=== PATIENT | male | born 1940 | race Caucasian/White ===

== ENCOUNTER 2017-06-11 15:03 | Inpatient (IN) | payer MEDICARE ==
[2017-06-11] MEDS ORDERED: NS 0.9% 1000 ML* 1,000 ML IV ONE (15:07)
[2017-06-11 15:24] LABS: Hematocrit 37 % (42-52); Hemoglobin 12.5 g/dl (14.0-18.0); Mean Corpuscular HGB Conc 34 g/dl (31-36); Mean Corpuscular Hemoglobin 32 pg (27-31); Mean Corpuscular Volume 93 fL (80-94); Mean Platelet Volume 8 um3 (7.4-10.4); Red Blood Count 3.92 10^6/ul (4.0-5.4); Red Cell Distribution Width 13 % (10.5-15); White Blood Count 15.5 10^3/ul (3.5-10.8)
[2017-06-11 15:47] LABS: ALT 13 U/L (7-52); AST 19 U/L (13-39); Albumin 4.1 g/dL (3.2-5.2); Alkaline Phosphatase 46 U/L (34-104); Anion Gap 8 mmol/L (2-11); BUN/Creatinine Ratio 12.4 (8-20); Blood Urea Nitrogen 11 mg/dL (6-24); CO2 Carbon Dioxide 27 mmol/L (22-32); Calcium 9.7 mg/dL (8.6-10.3); Chloride 92 mmol/L (101-111); Creatine Kinase 199 U/L (10-223); EGFR African American 106.9 (>60); EGFR Non-African American 83.1 (>60); Globulin 2.9 g/dL (2-4); Glucose 125 mg/dL (70-100); Potassium 3.8 mmol/L (3.5-5.0); Sodium 127 mmol/L (133-145)
[2017-06-11 15:56] LABS: Troponin I 0.12 ng/mL (<0.04)
[2017-06-11 15:57] LABS: Urine Bacteria Absent (Absent); Urine Bilirubin Negative (Negative); Urine Glucose Negative (Negative); Urine Nitrite Negative (Negative)
[2017-06-11 15:59] LABS: Acetaminophen < 15 mcg/mL; Alcohol < 10 mg/dL (<10)
[2017-06-11 16:01] LABS: TSH (Thyroid Stimulating Horm) 0.36 mcIU/mL (0.34-5.60)
[2017-06-11 16:22] LABS: Benzodiazepine Urine Screen None Detected (None Detect)
--- NOTE | 2017-06-11 16:45 | RAD ---
Indication: Confusion. Single frontal view of the chest performed at 1611 hours was reviewed. Comparison is made with previous exam dated October 08, 2015. No mediastinal shift is noted. Heart is of normal size and configuration. Lung buckley appear clear. Patient is status post tracer thoracotomy. IMPRESSION: NO ACTIVE CARDIOPULMONARY DISEASE IS NOTED.
[2017-06-11] MEDS ORDERED: Acetaminophen TAB* 325 MG PO PRN (16:53)
[2017-06-11] MEDS ORDERED: hydrALAZINE IV* 20 MG/ML VIAL IV SLOW PU PRN (16:53)
[2017-06-11] MEDS ORDERED: Ondansetron INJ* 2 MG/ML VIAL IV PRN (16:53)
[2017-06-11] MEDS ORDERED: Albuterol HFA INHALER* 8 gm MDI INH PRN (16:56)
[2017-06-11] MEDS ORDERED: Zosyn per Pharmacy* NOTE FOLLOW UP SCH (17:00)
[2017-06-11] MEDS ORDERED: NS 0.9% 1000 ML* 1,000 ML IV SCH (17:00)
[2017-06-11] MEDS ORDERED: Piperacillin/Tazobac (*) 3.375 GM ADDV.VIAL ONE (17:25)
--- NOTE | 2017-06-11 17:36 | ED ---
Brigitte Zhao Alfonso, scribed for King Ulloa MD on 06/11/17 at 1510 . Complex/Multi-Sys Presentation - HPI Summary HPI Summary: This patient is a 77 year old M BIBA to [facility] with a chief complaint of weakness since yesterday. Pt was found by EMS on the floor near his bed. The patient rates the pain 3/10 in severity. Symptoms aggravated by nothing. Symptoms alleviated by nothing. EMS reports vomiting, leg pain, calf swelling, and AMS. - History Of Current Complaint Chief Complaint: EDAltMentalStatus Time Seen by Provider: 06/11/17 15:04 Hx Obtained From: Patient, EMS Onset/Duration: Sudden Onset, Lasting Days, Still Present Timing: Constant Severity Currently: Moderate Severity Initially: Moderate Aggravating Factor(s): nothing Alleviating Factor(s): nothing Associated Signs And Symptoms: Positive: Other - vomiting, leg pain, calf swelling, weakness, and AMS. - Allergies/Home Medications Allergies/Adverse Reactions: Allergies Allergy/AdvReac Type Severity Reaction Status Date / Time Hydrocodone AdvReac See Comment Verified 06/11/17 15:10 SEASONAL ALLERGIES Allergy Runny Nose Uncoded 06/11/17 15:10 Home Medications: Home Medications Albuterol inh POWDER (NF) [Proair Respiclick] 2 puff INH Q4HR PRN 06/11/17 [ History Confirmed 06/11/17] Aspirin EC Low Dose* [Ecotrin EC Low Dose 81 MG*] 81 mg PO DAILY 06/11/17 [ History Confirmed 06/11/17] Cetirizine* [ZyrTEC 10 MG TAB*] 10 mg PO DAILY 06/11/17 [History Confirmed 06/11] Cholecalciferol [Vitamin D3 Super Strength] 4,000 unit PO DAILY 06/11/17 [ History Confirmed 06/11/17] Gabapentin CAP(*) [Neurontin 300 CAP(*)] 900 mg PO TID MDD 2700 mg 06/11/17 [ History Confirmed 06/11/17] Lovastatin (NF) [Mevacor (NF)] 40 mg PO BEDTIME 06/11/17 [History Confirmed 10/27] Metoprolol Succinate XL TAB* [Toprol XL TAB*] 25 mg PO DAILY 06/11/17 [History Confirmed 06/11/17] Multivitamins/Minerals TAB* [Theragran/minerals TAB*] 1 tab PO DAILY 06/11/17 [ History Confirmed 06/11/17] Polyethylene Glycol 3350* [Miralax*] 17 gm PO DAILY PRN 06/11/17 [History Confirmed 06/11/17] oxyCODONE/Acetamin 10/325(NF) [Percocet 10/325 (NF)] 1 - 2 tab PO Q6HR MDD 6 tabs 06/11/17 [History Confirmed 06/11/17] PMH/Surg Hx/FS Hx/Imm Hx Endocrine/Hematology History: Reports: Hx Anemia - TAKING IRON TABLETS Denies: Hx Diabetes, Hx Sickle Cell Disease Cardiovascular History: Reports: Hx Coronary Artery Disease, Hx Hypercholesterolemia, Hx Hypertension - TREATED WITH MEDICATION, Hx Valvular Heart Disease Denies: Hx Pacemaker/ICD Respiratory History: Reports: Hx Chronic Obstructive Pulmonary Disease (COPD), Hx Seasonal Allergies, Other Respiratory Problems/Disorders - USES INHALER DAILY GI History: Reports: Hx Gastroesophageal Reflux Disease, Other GI Disorders - CONSTIPATION USES MIRALAX History: Reports: Hx Benign Prostatic Hyperplasia, Other Problems/ Disorders - BPH Denies: Hx Dialysis Musculoskeletal History: Reports: Hx Arthritis - HIPS AND LEGS Sensory History: Reports: Hx Contacts or Glasses Denies: Hx Hearing Aid - IS SLIGHTLY [place] Opthamlomology History: Reports: Hx Contacts or Glasses Neurological History: Denies: Hx Dementia, Hx Seizures, Other Neuro Impairments/Disorders Psychiatric History: Denies: Hx Anxiety, Hx Attention Deficit Hyperactivity Disorder, Hx Eating Disorder, Hx Depression, Hx Panic Disorder, Hx Post Traumatic Stress Disorder, Hx Inpatient Treatment, Hx Community Mental Health Tx, Hx Schizophrenia, Hx Bipolar Disorder, Hx Suicide Attempt, Hx of Violent Episodes Against Others, Hx Substance Abuse, Other Psychiatric Issues/Disorders - Surgical History Surgery Procedure, Year, and Place: [place] 04[place] [facility] [place] RIGHT KNEE 2001, LT HIP REPLACEMENT 2012, RT KNEE REPLACEMENT 06/23, Hx Anesthesia Reactions: No - Immunization History Date of Tetanus Vaccine: Unk Date of Influenza Vaccine: Fall 2014 Infectious Disease History: No Infectious Disease History: Denies: Hx Clostridium Difficile, Hx Hepatitis, Hx Human Immunodeficiency Virus (HIV), Hx Shingles, Hx Tuberculosis, Traveled Outside the in Last 30 Days - Family History Known Family History: Negative: Seizure Disorder - Social History Alcohol Use: None Alcohol Amount: glass of wine with dinner Substance Use Type: Reports: None Smoking Status (MU): Former Smoker Type: Cigarettes Review of Systems Positive: Vomiting Positive: Other - leg pain, calf swelling. Neurological: Other - AMS Positive: Weakness All Other Systems Reviewed And Are Negative: Yes Physical Exam Triage Information Reviewed: Yes Vital Signs On Initial Exam: Initial Vitals Temp Pulse Resp BP Pulse Ox 98.5 F 80 15 190/49 96 06/11/17 15:04 06/11/17 15:04 06/11/17 15:04 06/11/17 15:04 06/11/17 15:04 Vital Signs Reviewed: Yes Appearance: Positive: Well-Appearing, No Pain Distress Skin: Positive: Warm, Skin Color Reflects Adequate Perfusion, Dry Head/Face: Positive: Normal Head/Face Inspection Eyes: Positive: Other: - Conjunctiva pale ENT: Positive: Other - Dry oral mucosa Neck: Positive: Supple, Nontender Respiratory/Lung Sounds: Positive: Clear to Auscultation, Breath Sounds Present Cardiovascular: Positive: RRR Abdomen Description: Positive: Nontender, Soft Bowel Sounds: Positive: Present Musculoskeletal: Positive: Other - Pitting edema bilaterally 1+. No asterixis. Neurological: Positive: Normal, Sensory/Motor Intact, Alert, Oriented to Person Place, Time, CN Intact II-III Psychiatric: Positive: Affect/Mood Appropriate - [place] Coma Scale Coma Scale Total: 14 Diagnostics - Vital Signs Vital Signs Temp Pulse Resp BP Pulse Ox 06/11/17 15:05 98.5 F 69 15 190/49 94 06/11/17 15:04 98.5 F 80 15 190/49 96 - Laboratory Lab Results: Lab Results 06/11/17 06/11/17 06/11/17 Range/Units 15:15 15:15 15:15 WBC (3.5-10.8) 10^3/ul RBC (4.0-5.4) 10^6/ul Hgb (14.0-18.0) g/dl Hct (42-52) % MCV (80-94) fL MCH (27-31) pg MCHC (31-36) g/dl RDW (10.5-15) % Plt Count (150-450) 10^3/ul MPV (7.4-10.4) um3 Neut % (Auto) (38-83) % Lymph % (Auto) (25-47) % [place] % (Auto) (1-9) % Eos % (Auto) (0-6) % Baso % (Auto) (0-2) % Absolute Neuts (auto) (1.5-7.7) 10^3/ul Absolute Lymphs (auto) (1.0-4.8) 10^3/ul Absolute Monos (auto) (0-0.8) 10^3/ul Absolute Eos (auto) (0-0.6) 10^3/ul Absolute Basos (auto) (0-0.2) 10^3/ul Absolute Nucleated RBC 10^3/ul Nucleated RBC % INR (Anticoag Therapy) 1.11 (0.89-1.11) D-Dimer, Quantitative 219 (Less Than 230) ng/mL Sodium 127 L (133-145) mmol/L Potassium 3.8 (3.5-5.0) mmol/L Chloride 92 L (101-111) mmol/L Carbon Dioxide 27 (22-32) mmol/L Anion Gap 8 (2-11) mmol/L BUN 11 (6-24) mg/dL Creatinine 0.89 (0.67-1.17) mg/dL Est GFR ( Amer) 106.9 (>60) Est GFR (Non-Af Amer) 83.1 (>60) BUN/Creatinine Ratio 12.4 (8-20) Glucose 125 H (70-100) mg/dL Lactic Acid (0.5-2.0) mmol/L Calcium 9.7 (8.6-10.3) mg/dL Total Bilirubin 0.90 (0.2-1.0) mg/dL AST 19 (13-39) U/L ALT 13 (7-52) U/L Alkaline Phosphatase 46 (34-104) U/L Ammonia 26 (16-53) mol/L Total Creatine Kinase 199 (10-223) U/L Troponin I 0.12 H* (<0.04) ng/mL Total Protein 7.0 (6.4-8.9) g/dL Albumin 4.1 (3.2-5.2) g/dL Globulin 2.9 (2-4) g/dL Albumin/Globulin Ratio 1.4 (1-3) TSH 0.36 (0.34-5.60) mcIU/mL Urine Color Urine Appearance Urine pH (5-9) Ur Specific [place] (1.010-1.030) Urine Protein (Negative) Urine Ketones (Negative) Urine Blood (Negative) Urine Nitrate (Negative) Urine Bilirubin (Negative) Urine Urobilinogen (Negative) Ur Leukocyte Esterase (Negative) Urine WBC (Auto) (Absent) Urine RBC (Auto) (Absent) Urine Bacteria (Absent) Urine Glucose (Negative) Urine Opiates Screen (None Detect) Acetaminophen < 15 mcg/mL Ur Barbiturates Screen (None Detect) Ur Phencyclidine Scrn (None Detect) Ur Amphetamines Screen (None Detect) U Benzodiazepines Scrn (None Detect) Urine Cocaine Screen (None Detect) U Cannabinoids Screen (None Detect) Serum Alcohol < 10 (<10) mg/dL 06/11/17 06/11/17 06/11/17 Range/Units 15:15 15:15 15:35 WBC 15.5 H (3.5-10.8) 10^3/ul RBC 3.92 L (4.0-5.4) 10^6/ul Hgb 12.5 L (14.0-18.0) g/dl Hct 37 L (42-52) % MCV 93 (80-94) fL MCH 32 H (27-31) pg MCHC 34 (31-36) g/dl RDW 13 (10.5-15) % Plt Count 185 (150-450) 10^3/ul MPV 8 (7.4-10.4) um3 Neut % (Auto) 91.4 H (38-83) % Lymph % (Auto) 3.6 L (25-47) % [place] % (Auto) 4.6 (1-9) % Eos % (Auto) 0 (0-6) % Baso % (Auto) 0.4 (0-2) % Absolute Neuts (auto) 14.2 H (1.5-7.7) 10^3/ul Absolute Lymphs (auto) 0.6 L (1.0-4.8) 10^3/ul Absolute Monos (auto) 0.7 (0-0.8) 10^3/ul Absolute Eos (auto) 0 (0-0.6) 10^3/ul Absolute Basos (auto) 0.1 (0-0.2) 10^3/ul Absolute Nucleated RBC 0 10^3/ul Nucleated RBC % 0 INR (Anticoag Therapy) (0.89-1.11) D-Dimer, Quantitative (Less Than 230) ng/mL Sodium (133-145) mmol/L Potassium (3.5-5.0) mmol/L Chloride (101-111) mmol/L Carbon Dioxide (22-32) mmol/L Anion Gap (2-11) mmol/L BUN (6-24) mg/dL Creatinine (0.67-1.17) mg/dL Est GFR ( Amer) (>60) Est GFR (Non-Af Amer) (>60) BUN/Creatinine Ratio (8-20) Glucose (70-100) mg/dL Lactic Acid 0.8 (0.5-2.0) mmol/L Calcium (8.6-10.3) mg/dL Total Bilirubin (0.2-1.0) mg/dL AST (13-39) U/L ALT (7-52) U/L Alkaline Phosphatase (34-104) U/L Ammonia (16-53) mol/L Total Creatine Kinase (10-223) U/L Troponin I (<0.04) ng/mL Total Protein (6.4-8.9) g/dL Albumin (3.2-5.2) g/dL Globulin (2-4) g/dL Albumin/Globulin Ratio (1-3) TSH (0.34-5.60) mcIU/mL Urine Color Urine Appearance Urine pH (5-9) Ur Specific [place] (1.010-1.030) Urine Protein (Negative) Urine Ketones (Negative) Urine Blood (Negative) Urine Nitrate (Negative) Urine Bilirubin (Negative) Urine Urobilinogen (Negative) Ur Leukocyte Esterase (Negative) Urine WBC (Auto) (Absent) Urine RBC (Auto) (Absent) Urine Bacteria (Absent) Urine Glucose (Negative) Urine Opiates Screen Presumptive positive H (None Detect) Acetaminophen mcg/mL Ur Barbiturates Screen None detected (None Detect) Ur Phencyclidine Scrn None detected (None Detect) Ur Amphetamines Screen None detected (None Detect) U Benzodiazepines Scrn None detected (None Detect) Urine Cocaine Screen None detected (None Detect) U Cannabinoids Screen None detected (None Detect) Serum Alcohol (<10) mg/dL 09/01/17 Range/Units 15:35 WBC (3.5-10.8) 10^3/ul RBC (4.0-5.4) 10^6/ul Hgb (14.0-18.0) g/dl Hct (42-52) % MCV (80-94) fL MCH (27-31) pg MCHC (31-36) g/dl RDW (10.5-15) % Plt Count (150-450) 10^3/ul MPV (7.4-10.4) um3 Neut % (Auto) (38-83) % Lymph % (Auto) (25-47) % [place] % (Auto) (1-9) % Eos % (Auto) (0-6) % Baso % (Auto) (0-2) % Absolute Neuts (auto) (1.5-7.7) 10^3/ul Absolute Lymphs (auto) (1.0-4.8) 10^3/ul Absolute Monos (auto) (0-0.8) 10^3/ul Absolute Eos (auto) (0-0.6) 10^3/ul Absolute Basos (auto) (0-0.2) 10^3/ul Absolute Nucleated RBC 10^3/ul Nucleated RBC % INR (Anticoag Therapy) (0.89-1.11) D-Dimer, Quantitative (Less Than 230) ng/mL Sodium (133-145) mmol/L Potassium (3.5-5.0) mmol/L Chloride (101-111) mmol/L Carbon Dioxide (22-32) mmol/L Anion Gap (2-11) mmol/L BUN (6-24) mg/dL Creatinine (0.67-1.17) mg/dL Est GFR ( Amer) (>60) Est GFR (Non-Af Amer) (>60) BUN/Creatinine Ratio (8-20) Glucose (70-100) mg/dL Lactic Acid (0.5-2.0) mmol/L Calcium (8.6-10.3) mg/dL Total Bilirubin (0.2-1.0) mg/dL AST (13-39) U/L ALT (7-52) U/L Alkaline Phosphatase (34-104) U/L Ammonia (16-53) mol/L Total Creatine Kinase (10-223) U/L Troponin I (<0.04) ng/mL Total Protein (6.4-8.9) g/dL Albumin (3.2-5.2) g/dL Globulin (2-4) g/dL Albumin/Globulin Ratio (1-3) TSH (0.34-5.60) mcIU/mL Urine Color Yellow Urine Appearance Clear Urine pH 7.0 (5-9) Ur Specific [place] 1.015 (1.010-1.030) Urine Protein 1+(30 mg/dl) H (Negative) Urine Ketones 1+ H (Negative) Urine Blood Negative (Negative) Urine Nitrate Negative (Negative) Urine Bilirubin Negative (Negative) Urine Urobilinogen Negative (Negative) Ur Leukocyte Esterase Negative (Negative) Urine WBC (Auto) Absent (Absent) Urine RBC (Auto) 1+(3-5/hpf) H (Absent) Urine Bacteria Absent (Absent) Urine Glucose Negative (Negative) Urine Opiates Screen (None Detect) Acetaminophen mcg/mL Ur Barbiturates Screen (None Detect) Ur Phencyclidine Scrn (None Detect) Ur Amphetamines Screen (None Detect) U Benzodiazepines Scrn (None Detect) Urine Cocaine Screen (None Detect) U Cannabinoids Screen (None Detect) Serum Alcohol (<10) mg/dL Result Diagrams: 06/11/17 15:15 06/11/17 15:15 Lab Statement: Any lab studies that have been ordered have been reviewed, and results considered in the medical decision making process. - Radiology CXR Radiology Interpretation Completed By: Radiologist - NO ACTIVE CARDIOPULMONARY DISEASE IS NOTED. ED physician has reviewed this radiology report and agrees. - EKG 1621 Cardiac Rate: NL - BPM 78 EKG Rhythm: Sinus Rhythm EKG Interpretation: NAC Complex Multi-Symp Course/Dx Course Of Treatment: Mr. Felix was a bit confused here and C/O weakness. His W/ U was only remarkable for an indeterminant troponin and he is being admitted by the hospitalist. - Diagnoses Provider Diagnoses: Weakness, Confusion - Physician Notifications Discussed Care Of Patient With: Ivana Adorno Time Discussed With Above Provider: 16:08 Instructed by Provider To: Other - Consulted Dr. Adorno (hospitalist) who agrees to admit. Discharge - Discharge Plan Condition: Stable Disposition: ADMITTED TO [facility] Referrals: Pedro Grimaldo MD [Primary Care Provider] - The documentation as recorded by the Brigitte mercer Alfonso accurately reflects the service I personally performed and the decisions made by me, King Ulloa MD.
--- NOTE | 2017-06-11 17:38 | RAD ---
Indication: Confusion. CT of the brain was performed without IV contrast. Ventricular structures are midline. No midline shift is noted. The extra-axial spaces are unremarkable. There is no evidence of intracranial mass or hemorrhage. No other high or low density lesions are identified. Mastoid air cells and paranasal sinuses are otherwise unremarkable. Mucosal thickening is noted in the ethmoid air cells consistent with chronic sinusitis. IMPRESSION: No intracranial mass or hemorrhage is noted.
[2017-06-11] MEDS: Azithromycin IV(*) 500 MG in NS 0.9% 250 ML* 250 ML IVPB SCH (20:13)
[2017-06-11] MEDS: Heparin VIAL(*) 5000 UNITS/ML VIAL (FIVE THOUSAND) SUBCUT SCH (21:50)
[2017-06-11] MEDS: Atorvastatin* 10 MG TAB PO SCH (21:50)
[2017-06-11] MEDS: Gabapentin CAP(*) 300 MG PO SCH (21:50)
[2017-06-12] MEDS ORDERED: Analgesic BALM* 114 GM TOPICAL SCH (01:30)
--- NOTE | 2017-06-12 02:00 | HP ---
CC: Dr. Grimaldo * HISTORY AND PHYSICAL: DATE OF ADMISSION: 06/11/17 PRIMARY CARE PROVIDER: Dr. Grimaldo. ATTENDING PHYSICIAN WHILE IN THE HOSPITAL: Dr. Ivana Garcia * (report dictated by William Alatorre NP) CHIEF COMPLAINT: 1. Vomiting. 2. Altered mental status. HISTORY OF PRESENTING ILLNESS: Mr. Felix is a 77-year-old male patient. He has a history of coronary artery disease, hypertension, hyperlipidemia, BPH, CAD , EtOH abuse in the past, he says he has not been drinking now in 2-3 years and history of seasonal allergies. He came into the ER today because he says last night yesterday he had an episode of vomiting. He thinks he vomited 3 times, but he had no associated abdominal discomfort. He says he does not really remember. The only thing he remembers is he went to his bed, laid down and the next thing he knew, he thinks he was in his bed for over 12 hours. He was half on his bed, half with his legs on the floor. Actually his neighbors came to check on him, knocked on the door. They let themselves in because he was not answering, but they knew he was there and they called 911. He apparently was confused to the neighbors. They noticed that he had vomit all over him. The patient does state that he does have a productive cough, but now he says that he did not have this a few days ago. He denied having any fevers or chills. He is very vague with his history. He says he does not recall much. At one point, he says he has lost control of his urine and then when I rephrase the question, he says, no, he does not really remember if he was incontinent. There has been no reports of dysuria. He denies to me chest pain currently. He says he has not had a headache. He denies having any neck pain or stiffness and he says he has not been feeling short of breath. He says the cough is new. He denies any changes in medications. He says that he does have a significant amount of pain on his sides, but he says this is chronic in nature and that he always has pain on the sides and he takes narcotics for this. He denies having any orthopnea and he says he has not gained any weight. He came in to the ER, was evaluated. It was noted that he had an elevated white count. His troponin was mildly elevated, and because of these findings, we were asked to evaluate for admission. PAST MEDICAL HISTORY: Significant for: 1. Hyperlipidemia. 2. Hypertension. 3. BPH. 4. CAD. 5. EtOH abuse in the past. 6. Seasonal allergies. PAST SURGICAL HISTORY: 1. He has had a hernia repair. 2. Left total hip replacement. 3. Left knee replacement. 4. CABG. 5. Cardiac catheterization. HOME MEDICATIONS: According to the list that we are able to obtain includes: 1. Percocet 1-2 tablets every 6 hours as needed. 2. MiraLAX 17 g p.o. daily as needed. 3. Multivitamin 1 tablet daily. 4. Nasonex 2 spray both nares b.i.d. as needed. 5. Toprol-XL 25 mg daily. 6. Lovastatin 40 mg p.o. at bedtime. 7. Gabapentin 900 mg p.o. t.i.d. 8. B12 2000 mcg p.o. daily. 9. D3 4000 units p.o. daily. 10. Zyrtec 10 mg p.o. daily. 11. Aspirin 81 mg daily. 12. Vitamin C 1000 mg daily. 13. ProAir 2 puffs inhaled every 4 hours as needed. This was her handwritten list. We may want to consider calling her doctor's office in the morning for more accurate list. ALLERGIES TO MEDICATIONS: Include HYDROCODONE. FAMILY HISTORY: Mother had a liver cancer. Father had a history of [place]. SOCIAL HISTORY: He is a former pipe smoker. He is a former alcoholic, but he has not drank in 2-3 years. Surrogate decision maker is his brother Joel. Denies any recreational drug use. REVIEW OF SYSTEMS: There was no documented fever. Denies having any significant weight change. He denied any double vision. No ear discharge. No rhinorrhea. No sore throat. He does not have any cough now. There is no orthopnea. No dyspnea on exertion. No chest pain. There are episodes of nausea and vomiting, but no abdominal pain. No dysuria, no frequency. There was no seizure that we know of. No loss of consciousness. No pruritus and no skin ulcerations. Review of 14 systems completed, all others negative. PHYSICAL EXAMINATION GENERAL: At this time, Mr. Felix is a 77-year-old male patient. He is sitting in the ER stretcher. He does not appear to be in any acute distress. VITAL SIGNS: Blood pressure 183/48, pulse 74, respirations 18, O2 sat 96%, temperature 98.5. HEENT: Head is atraumatic. Eyes: EOMs intact. Sclerae anicteric. Throat: Oral mucosa appears to be dry. No oropharyngeal erythema. NECK: Supple. LUNGS: He did have rhonchi noted in the lower lobes, though when he cleared his throat, the rhonchi disappeared and it was clear. There are no wheezes or rales or rhonchi heard now. HEART: Sounds S1, S2. Regular rate and rhythm. No murmurs, rubs or gallops. ABDOMEN: Bowel sounds were present. He was soft, flat, and nontender. EXTREMITIES: Pulses were 2+. He did have +2 pitting edema bilaterally. He is having difficulty moving the lower extremities as it does elicit pain in his back of which he has a chronic medical problem from this bilaterally, though under passive range of motion, he has no pain in his knees or his hips. Sensation is intact bilaterally. His upper extremities are 5/5 strength. NEUROLOGIC: He is awake, he is alert, he is oriented x3. Currently, finger-to - nose intact bilaterally. Chief School Finance Officer were equal. No facial drooping. Speech was clear. No gross focal deficits. LABORATORY DATA: Labs today revealed WBC of 15.5, RBC of 3.92, hemoglobin 12.5 , hematocrit 37, platelet count of 185. INR 1.11. Sodium of 127, potassium of 3.8, chloride of 92, bicarb 27, BUN 11, creatinine 0.89, glucose 125, lactate 0.8, calcium 9.7, total bili 0.9, AST 19, ALT 13, alk phos 46, ammonia 26. His troponin was 0.12. CK was 199. Albumin 4.1. Urine showed 1+ protein, 1+ ketone. Urine opiates were positive in his drug screen, but otherwise his U- tox was negative. He had a chest x-ray obtained today, I reviewed it, I did not appreciate any effusions or infiltrates. Radiology read this as no active cardiopulmonary disease is noted. He did have an EKG obtained today as well, which revealed a normal sinus rhythm , does have a PAC. No ST elevations or T-wave inversions were noted. It was reviewed to a previous EKG, it appears to be similar. Old medical records were reviewed. ASSESSMENT AND PLAN: Mr. Felix is a 77-year-old male patient coming in to the ER today with complaints of altered mental status and vomiting. We are asked to evaluate for admission. He will be admitted under observation status for: 1. Altered mental status. Etiology is unclear. He may have an underlying infection. His white count is 15,000, which may be contributing to his mentation. He may have aspirated. Obviously, he may have had a seizure at some point too because he appears to have loss of period of time. I think we need to get a CT of the brain, EEG, neuro checks, place him on telemetry and follow him closely. 2. Indeterminate troponin. Again, he is not having any chest pain currently. His EKG is stable. I am going to trend these. Get an echo. In addition to this, I will place him on telemetry. He is on aspirin, statin, and beta- cheryl. We will continue. 3. Question of aspiration pneumonia. Again, he did vomit, so I wonder if the white count is coming from him possibly aspirating. I will put him on Zosyn and azithromycin. We will get sputum culture and Legionella antigen, Strep pneumo antigen as well. 4. Hyperlipidemia. Continue Mevacor. 5. Hypertension. Continue meds as prescribed. 6. Bilateral lower extremity edema. Again, the etiology is unclear. He thinks this has been a chronic problem, but I am going to check a D-dimer as well. If it is negative, then I will not pursue further workup. If it is positive, I would consider a CTA because that may explain the elevated troponin and I may also get an ultrasound of the lower extremities. 7. Hypertension. His blood pressure is in the 180s. He did not take his meds this morning. I have ordered p.r.n. hydralazine. We will continue meds as prescribed. 8. BPH. Continue his current medical regimen. 9. CAD. He is on aspirin, statin and beta-cheryl, we will continue. 10. History of EtOH abuse. Not an active issue currently, we will monitor. 11. Seasonal allergies. Continue Zyrtec. 12. DVT prophylaxis. He will be placed on heparin subcu. 13. Code status. He wishes to be a do not resuscitate. 14. Fluid, electrolyte, nutrition. He can have a heart healthy diet. TIME SPENT: Time spent on the admission was 60 minutes; greater than half the time was spent [id number] with the patient, obtaining my history and physical , the other half time was spent going over the plan of care with the patient and implementing the plan of care. I did discuss the plan of care with my attending, Dr. Garcia; she is in agreement. WILLIAM ALATORRE, UI DEVELOPER WITH ANGULAR JS [id number]/CPS #: [id number] LANCE
[2017-06-12] MEDS ORDERED: Analgesic BALM* 114 GM TOPICAL PRN (03:26)
[2017-06-12] MEDS: Ibuprofen TAB* 400 MG PO PRN (03:41)
[2017-06-12 05:22] LABS: Hematocrit 28 % (42-52); Hemoglobin 9.7 g/dl (14.0-18.0); Mean Corpuscular HGB Conc 35 g/dl (31-36); Mean Corpuscular Hemoglobin 33 pg (27-31); Mean Corpuscular Volume 93 fL (80-94); Mean Platelet Volume 9 um3 (7.4-10.4); Red Blood Count 2.98 10^6/ul (4.0-5.4); Red Cell Distribution Width 13 % (10.5-15); White Blood Count 9.8 10^3/ul (3.5-10.8)
[2017-06-12] MEDS: Heparin VIAL(*) 5000 UNITS/ML VIAL (FIVE THOUSAND) SUBCUT SCH ×3 (05:29→21:16)
[2017-06-12 05:41] LABS: BUN/Creatinine Ratio 14.3 (8-20); Calcium 8.2 mg/dL (8.6-10.3); EGFR African American 126.3 (>60); EGFR Non-African American 98.2 (>60); Potassium 3.5 mmol/L (3.5-5.0)
[2017-06-12] MEDS: Aspirin EC Low Dose* 81 MG TAB.EC PO SCH (09:10)
[2017-06-12] MEDS: Gabapentin CAP(*) 300 MG PO SCH ×3 (09:10→21:16)
[2017-06-12] MEDS: Metoprolol Succinate XL TAB* 25 MG PO SCH (09:11)
[2017-06-12] MEDS: Cyanocobalamin TAB* 500 MCG PO SCH (09:11)
[2017-06-12] MEDS: Cetirizine* 10 MG TAB PO SCH (09:11)
[2017-06-12] MEDS ORDERED: oxyCODONE/Acetamin 5/325 MG* TAB PO PRN ×2 (11:50→11:58)
[2017-06-12] MEDS ORDERED: oxyCODONE/Acetamin 10/325(NF) TAB PO SCH (12:00)
--- NOTE | 2017-06-12 17:38 | PN ---
Subjective Date of Service: 06/12/17 Interval History: Pt on observation status after being found slumped against bed and floor with altered mental status. He remembers vomiting several times into an urinal then holding urinal for several hours so that it would not fall. Pt complaint overnight of bilateral hand pain 2/2 OA ultimately improvided with topical balms similar to what he takes at home. Feels very fatigued (2/2 lack of sleep) and "confused" and does not he would be safely discharged today. Can't get into his house without help. Has somebody who brings him food. Drives seldomly. Per RN, Neighbors visited today (same who found him) and don't think he is safe in home environment as they also felt his medication were all over the place. Leukocytosis resolved. Denies coughing or choking but somewhat unreliable historian. Objective Active Medications: Acetaminophen (Tylenol Tab*) 650 mg PO Q4H PRN PRN Reason: FEVER/PAIN Last Admin: 06/11/17 23:52 Dose: 650 mg Albuterol (Ventolin Hfa Inhaler*) 2 puff INH Q4H PRN PRN Reason: SHORTNESS OF BREATH Aspirin (Aspirin Ec Low Dose*) 81 mg PO DAILY [facility] Last Admin: 06/12/17 09:10 Dose: 81 mg Atorvastatin Calcium (Lipitor*) 10 mg PO BEDTIME ISAIAS PRN Reason: Protocol Last Admin: 06/11/17 21:50 Dose: 10 mg Cetirizine HCl (Zyrtec*) 10 mg PO DAILY ISAIAS PRN Reason: Protocol Last Admin: 06/12/17 09:11 Dose: 10 mg Cyanocobalamin (Vitamin B12 Tab*) 2,000 mcg PO DAILY [facility] Last Admin: 06/12/17 09:11 Dose: 2,000 mcg Gabapentin (Neurontin Cap(*)) 900 mg PO TID [facility] Last Admin: 06/12/17 13:39 Dose: 900 mg Heparin Sodium (Porcine) (Heparin Vial(*)) 5,000 units SUBCUT Q8HR [facility] Last Admin: 06/12/17 13:40 Dose: 5,000 units Hydralazine HCl (Apresoline Iv*) 5 mg IV SLOW PU Q6H PRN PRN Reason: BLOOD PRESSURE Azithromycin 500 mg/ Sodium (Chloride) 250 mls @ 250 mls/hr IVPB Q24H [facility] Last Admin: 06/11/17 20:13 Dose: 250 mls/hr Ibuprofen (Motrin Tab*) 400 mg PO Q6H PRN PRN Reason: PAIN - ARTHRITIS Last Admin: 06/12/17 03:41 Dose: 400 mg Metoprolol Succinate (Toprol Xl Tab*) 25 mg PO DAILY [facility] Last Admin: 06/12/17 09:11 Dose: 25 mg Multi-Ingredient Liniment/Rub (Tod Murry*) 1 applic TOPICAL Q2H PRN PRN Reason: PAIN - ARTHRITIS Ondansetron HCl (Zofran Inj*) 4 mg IV Q6H PRN PRN Reason: NAUSEA Oxycodone/Acetaminophen (Percocet 5/325 Tab*) 1 tab PO Q6H PRN PRN Reason: PAIN Oxycodone/Acetaminophen (Percocet 5/325 Tab*) 2 tab PO Q6H PRN PRN Reason: MORE PAIN Pharmacy Consult (Zosyn Per Pharmacy*) 1 note FOLLOW UP .ZOSYN PER PHARMACY [facility] Polyethylene Glycol/Electrolytes (Miralax*) 17 gm PO DAILY PRN PRN Reason: CONSTIPATION Tamsulosin HCl (Flomax Cap*) 0.4 mg PO DAILY [facility] Vital Signs 06/11/17 06/11/17 06/11/17 17:35 18:10 20:46 Temperature 98.1 F 98.0 F Pulse Rate 63 71 79 Respiratory 18 18 Rate Blood Pressure 156/46 141/39 (mmHg) O2 Sat by Pulse 97 98 Oximetry 06/11/17 06/11/17 06/12/17 21:50 23:38 04:25 Temperature 98.0 F 97.7 F Pulse Rate 73 74 Respiratory 16 16 16 Rate Blood Pressure 144/40 140/46 (mmHg) O2 Sat by Pulse 96 Oximetry 06/12/17 06/12/17 06/12/17 07:42 08:31 09:10 Temperature 98.4 F Pulse Rate 61 Respiratory 16 17 Rate Blood Pressure 135/35 (mmHg) O2 Sat by Pulse 98 98 Oximetry 06/12/17 06/12/17 06/12/17 11:10 11:32 13:10 Temperature 98.1 F Pulse Rate 63 Respiratory 18 18 17 Rate Blood Pressure 158/59 (mmHg) O2 Sat by Pulse 98 Oximetry 06/12/17 13:39 Temperature Pulse Rate Respiratory 17 Rate Blood Pressure (mmHg) O2 Sat by Pulse Oximetry Oxygen Devices in Use Now: None Appearance: Tired, no acute distress. Hard of hearing vs slightly confused. Eyes: No Scleral Icterus, PERRLA Ears/Nose/Mouth/Throat: NL Teeth, Lips, Gums, Clear Oropharnyx, Mucous Membranes Moist Neck: NL Appearance and Movements; NL JVP Respiratory: Symmetrical Chest Expansion and Respiratory Effort, Clear to Auscultation Cardiovascular: NL Sounds; No Murmurs; No JVD, RRR Abdominal: NL Sounds; No Tenderness; No Distention Lymphatic: No Cervical Adenopathy Extremities: - - trace edema in legs bilaterally Skin: No Rash or Ulcers Neurological: Alert and Oriented x 3 Nutrition: Taking PO's Result Diagrams: 06/12/17 04:57 06/12/17 04:57 Additional Lab and Data: Lab Results 06/11/17 06/11/17 06/11/17 Range/Units 15:15 15:15 15:15 WBC (3.5-10.8) 10^3/ul RBC (4.0-5.4) 10^6/ul Hgb (14.0-18.0) g/dl Hct (42-52) % MCV (80-94) fL MCH (27-31) pg MCHC (31-36) g/dl RDW (10.5-15) % Plt Count (150-450) 10^3/ul MPV (7.4-10.4) um3 Neut % (Auto) (38-83) % Lymph % (Auto) (25-47) % [place] % (Auto) (1-9) % Eos % (Auto) (0-6) % Baso % (Auto) (0-2) % Absolute Neuts (auto) (1.5-7.7) 10^3/ul Absolute Lymphs (auto) (1.0-4.8) 10^3/ul Absolute Monos (auto) (0-0.8) 10^3/ul Absolute Eos (auto) (0-0.6) 10^3/ul Absolute Basos (auto) (0-0.2) 10^3/ul Absolute Nucleated RBC 10^3/ul Nucleated RBC % INR (Anticoag Therapy) 1.11 (0.89-1.11) D-Dimer, Quantitative 219 (Less Than 230) ng/mL Sodium 127 L (133-145) mmol/L Potassium 3.8 (3.5-5.0) mmol/L Chloride 92 L (101-111) mmol/L Carbon Dioxide 27 (22-32) mmol/L Anion Gap 8 (2-11) mmol/L BUN 11 (6-24) mg/dL Creatinine 0.89 (0.67-1.17) mg/dL Est GFR ( Amer) 106.9 (>60) Est GFR (Non-Af Amer) 83.1 (>60) BUN/Creatinine Ratio 12.4 (8-20) Glucose 125 H (70-100) mg/dL Lactic Acid (0.5-2.0) mmol/L Calcium 9.7 (8.6-10.3) mg/dL Total Bilirubin 0.90 (0.2-1.0) mg/dL AST 19 (13-39) U/L ALT 13 (7-52) U/L Alkaline Phosphatase 46 (34-104) U/L Ammonia 26 (16-53) mol/L Total Creatine Kinase 199 (10-223) U/L Troponin I 0.12 H* (<0.04) ng/mL Total Protein 7.0 (6.4-8.9) g/dL Albumin 4.1 (3.2-5.2) g/dL Globulin 2.9 (2-4) g/dL Albumin/Globulin Ratio 1.4 (1-3) TSH 0.36 (0.34-5.60) mcIU/mL Urine Color Urine Appearance Urine pH (5-9) Ur Specific [place] (1.010-1.030) Urine Protein (Negative) Urine Ketones (Negative) Urine Blood (Negative) Urine Nitrate (Negative) Urine Bilirubin (Negative) Urine Urobilinogen (Negative) Ur Leukocyte Esterase (Negative) Urine WBC (Auto) (Absent) Urine RBC (Auto) (Absent) Urine Bacteria (Absent) Urine Glucose (Negative) Urine Opiates Screen (None Detect) Acetaminophen < 15 mcg/mL Ur Barbiturates Screen (None Detect) Ur Phencyclidine Scrn (None Detect) Ur Amphetamines Screen (None Detect) U Benzodiazepines Scrn (None Detect) Urine Cocaine Screen (None Detect) U Cannabinoids Screen (None Detect) Serum Alcohol < 10 (<10) mg/dL 06/11/17 06/11/17 06/11/17 Range/Units 15:15 15:15 15:35 WBC 15.5 H (3.5-10.8) 10^3/ul RBC 3.92 L (4.0-5.4) 10^6/ul Hgb 12.5 L (14.0-18.0) g/dl Hct 37 L (42-52) % MCV 93 (80-94) fL MCH 32 H (27-31) pg MCHC 34 (31-36) g/dl RDW 13 (10.5-15) % Plt Count 185 (150-450) 10^3/ul MPV 8 (7.4-10.4) um3 Neut % (Auto) 91.4 H (38-83) % Lymph % (Auto) 3.6 L (25-47) % [place] % (Auto) 4.6 (1-9) % Eos % (Auto) 0 (0-6) % Baso % (Auto) 0.4 (0-2) % Absolute Neuts (auto) 14.2 H (1.5-7.7) 10^3/ul Absolute Lymphs (auto) 0.6 L (1.0-4.8) 10^3/ul Absolute Monos (auto) 0.7 (0-0.8) 10^3/ul Absolute Eos (auto) 0 (0-0.6) 10^3/ul Absolute Basos (auto) 0.1 (0-0.2) 10^3/ul Absolute Nucleated RBC 0 10^3/ul Nucleated RBC % 0 INR (Anticoag Therapy) (0.89-1.11) D-Dimer, Quantitative (Less Than 230) ng/mL Sodium (133-145) mmol/L Potassium (3.5-5.0) mmol/L Chloride (101-111) mmol/L Carbon Dioxide (22-32) mmol/L Anion Gap (2-11) mmol/L BUN (6-24) mg/dL Creatinine (0.67-1.17) mg/dL Est GFR ( Amer) (>60) Est GFR (Non-Af Amer) (>60) BUN/Creatinine Ratio (8-20) Glucose (70-100) mg/dL Lactic Acid 0.8 (0.5-2.0) mmol/L Calcium (8.6-10.3) mg/dL Total Bilirubin (0.2-1.0) mg/dL AST (13-39) U/L ALT (7-52) U/L Alkaline Phosphatase (34-104) U/L Ammonia (16-53) mol/L Total Creatine Kinase (10-223) U/L Troponin I (<0.04) ng/mL Total Protein (6.4-8.9) g/dL Albumin (3.2-5.2) g/dL Globulin (2-4) g/dL Albumin/Globulin Ratio (1-3) TSH (0.34-5.60) mcIU/mL Urine Color Urine Appearance Urine pH (5-9) Ur Specific [place] (1.010-1.030) Urine Protein (Negative) Urine Ketones (Negative) Urine Blood (Negative) Urine Nitrate (Negative) Urine Bilirubin (Negative) Urine Urobilinogen (Negative) Ur Leukocyte Esterase (Negative) Urine WBC (Auto) (Absent) Urine RBC (Auto) (Absent) Urine Bacteria (Absent) Urine Glucose (Negative) Urine Opiates Screen Presumptive positive H (None Detect) Acetaminophen mcg/mL Ur Barbiturates Screen None detected (None Detect) Ur Phencyclidine Scrn None detected (None Detect) Ur Amphetamines Screen None detected (None Detect) U Benzodiazepines Scrn None detected (None Detect) Urine Cocaine Screen None detected (None Detect) U Cannabinoids Screen None detected (None Detect) Serum Alcohol (<10) mg/dL 06/11/17 Range/Units 15:35 WBC (3.5-10.8) 10^3/ul RBC (4.0-5.4) 10^6/ul Hgb (14.0-18.0) g/dl Hct (42-52) % MCV (80-94) fL MCH (27-31) pg MCHC (31-36) g/dl RDW (10.5-15) % Plt Count (150-450) 10^3/ul MPV (7.4-10.4) um3 Neut % (Auto) (38-83) % Lymph % (Auto) (25-47) % [place] % (Auto) (1-9) % Eos % (Auto) (0-6) % Baso % (Auto) (0-2) % Absolute Neuts (auto) (1.5-7.7) 10^3/ul Absolute Lymphs (auto) (1.0-4.8) 10^3/ul Absolute Monos (auto) (0-0.8) 10^3/ul Absolute Eos (auto) (0-0.6) 10^3/ul Absolute Basos (auto) (0-0.2) 10^3/ul Absolute Nucleated RBC 10^3/ul Nucleated RBC % INR (Anticoag Therapy) (0.89-1.11) D-Dimer, Quantitative (Less Than 230) ng/mL Sodium (133-145) mmol/L Potassium (3.5-5.0) mmol/L Chloride (101-111) mmol/L Carbon Dioxide (22-32) mmol/L Anion Gap (2-11) mmol/L BUN (6-24) mg/dL Creatinine (0.67-1.17) mg/dL Est GFR ( Amer) (>60) Est GFR (Non-Af Amer) (>60) BUN/Creatinine Ratio (8-20) Glucose (70-100) mg/dL Lactic Acid (0.5-2.0) mmol/L Calcium (8.6-10.3) mg/dL Total Bilirubin (0.2-1.0) mg/dL AST (13-39) U/L ALT (7-52) U/L Alkaline Phosphatase (34-104) U/L Ammonia (16-53) mol/L Total Creatine Kinase (10-223) U/L Troponin I (<0.04) ng/mL Total Protein (6.4-8.9) g/dL Albumin (3.2-5.2) g/dL Globulin (2-4) g/dL Albumin/Globulin Ratio (1-3) TSH (0.34-5.60) mcIU/mL Urine Color Yellow Urine Appearance Clear Urine pH 7.0 (5-9) Ur Specific [place] 1.015 (1.010-1.030) Urine Protein 1+(30 mg/dl) H (Negative) Urine Ketones 1+ H (Negative) Urine Blood Negative (Negative) Urine Nitrate Negative (Negative) Urine Bilirubin Negative (Negative) Urine Urobilinogen Negative (Negative) Ur Leukocyte Esterase Negative (Negative) Urine WBC (Auto) Absent (Absent) Urine RBC (Auto) 1+(3-5/hpf) H (Absent) Urine Bacteria Absent (Absent) Urine Glucose Negative (Negative) Urine Opiates Screen (None Detect) Acetaminophen mcg/mL Ur Barbiturates Screen (None Detect) Ur Phencyclidine Scrn (None Detect) Ur Amphetamines Screen (None Detect) U Benzodiazepines Scrn (None Detect) Urine Cocaine Screen (None Detect) U Cannabinoids Screen (None Detect) Serum Alcohol (<10) mg/dL Microbiology and Other Data: Legionella Urine Antigen Final 06/11/17- 1824 ML Organism 1 Negative Legionella Antigen testing by enzyme immunoassay S.Pneumonia Urine Antigen Final 06/11/17- 1824 ML Organism 1 Negative S. pneumo Antigen Antigen testing by enzyme immunoassay Assess/Plan/Problems-Billing Assessment: 77 year old male PMH EtOH abuse but abstinant 3 years, CAD s/p CABG, HTN, HLD, BPH presenting with vomiting, AMS and possible fall. Leukocytosis resolved. Never fever. Poor historian, possibly unsafe home environment. - Patient Problems (1) Altered mental status Current Visit: Yes Status: Acute Code(s): R41.82 - ALTERED MENTAL STATUS, UNSPECIFIED SNOMED Code(s): 152552900 Comment: Pt is poor historian, AAOx3 currently. DDx dehydration in setting of ?viral gastroenteritis causing vomiting vs medication side effect (only opioids postive on tox screen) vs infection (UA clean, CXR unremarkable, no fever but initial leukocytosis) vs hyponatremia (relatively mild, initially 127 ) vs dementia vs hepatic encephalopathy (significant EtOH use, none for 3 years , ammonina wnl) vs seizure/post-ictal. Improving though not clear at baseline. Will get VNS to assess home environment upon discharge given concerns related by neighbors (2) Hyponatremia Current Visit: Yes Status: Acute Code(s): E87.1 - HYPO-OSMOLALITY AND HYPONATREMIA SNOMED Code(s): 86069359 Comment: Improved from 127 to 132, got 1L NS in ED. Recheck BMP in AM. TSH wnl 0.36. (3) Urinary frequency Current Visit: Yes Status: Acute Code(s): R35.0 - FREQUENCY OF MICTURITION SNOMED Code(s): 221279178 Comment: increasing frequency to q30min from q1hr. UA not concerning for infection. Known BPH. F/u UCx. Add flomax. (4) Elevated troponin Current Visit: Yes Status: Acute Code(s): R74.8 - ABNORMAL LEVELS OF OTHER SERUM ENZYMES SNOMED Code(s): 973067012 Comment: Denies chest pain but potential cause of ?syncope, EKG with <1mm ST depression v4,v5. TWI III. Troponins flat 0.12, 0.12, 0.13. (5) Weakness of lower extremity Current Visit: Yes Status: Acute Code(s): R29.898 - OT SYMPTOMS AND SIGNS INVOLVING THE MUSCULOSKELETAL SYSTEM SNOMED Code(s): 090566480 Comment: Complaint of chronic lower extremity weakness and swelling which may be contributing to his mobilty issues. Trace edema on exam. Follow-up ECHO ordered on admission (had EF 60-65% Sep 2015). Get BNP (was 150 Sep 2015). Physical Therapy Evaluation (both here and likely home going). INR jason to 1.24 from 1.11 but no evidence of decompensated liver disease (no ascites, no transaminitis/bili). Status and Disposition: Initially observation but will change to inpatient. Likely discharge tomorrow 06/13. Attending: Isidoro Canseco
[2017-06-12] MEDS: Azithromycin IV(*) 500 MG in NS 0.9% 250 ML* 250 ML IVPB SCH (18:29)
[2017-06-12] MEDS: Tamsulosin CAP* 0.4 MG PO SCH (18:30)
[2017-06-12] MEDS: Atorvastatin* 10 MG TAB PO SCH (21:16)
[2017-06-12] MEDS: Analgesic BALM* 114 GM TOPICAL PRN ×2 (21:17→23:16)
[2017-06-13] MEDS: Analgesic BALM* 114 GM TOPICAL PRN ×2 (02:38→14:40)
[2017-06-13] MEDS: Heparin VIAL(*) 5000 UNITS/ML VIAL (FIVE THOUSAND) SUBCUT SCH ×3 (05:15→21:02)
[2017-06-13 06:23] LABS: BUN/Creatinine Ratio 17.8 (8-20); Calcium 8.2 mg/dL (8.6-10.3); EGFR African American 134.3 (>60); EGFR Non-African American 104.5 (>60); Potassium 3.6 mmol/L (3.5-5.0)
[2017-06-13] MEDS: Tamsulosin CAP* 0.4 MG PO SCH (09:23)
[2017-06-13] MEDS: Gabapentin CAP(*) 300 MG PO SCH ×3 (09:23→21:03)
[2017-06-13] MEDS: Cetirizine* 10 MG TAB PO SCH (09:24)
[2017-06-13] MEDS: Aspirin EC Low Dose* 81 MG TAB.EC PO SCH (09:24)
[2017-06-13] MEDS: Metoprolol Succinate XL TAB* 25 MG PO SCH (09:24)
[2017-06-13] MEDS: Cyanocobalamin TAB* 500 MCG PO SCH (09:24)
--- NOTE | 2017-06-13 14:06 | ECHO ---
Patient: MOE EDWARDS [facility] Rec#: [id number] : 1940 Date: 06/13/2017 Age: 77y Height: 152.4 cm / 60.0 in Weight: 64.86 kg / 143.0 lbs Sex: M BSA: 1.62 Room#: [facility] Admit Date#: 06/13/2017 Type: Inpatient Referring: William Alatorre NP Reading: Jamie Erwin MD Ticker Maintainer: Kassandra Jeffers RDCS CC: Pedro Grimaldo MD Transthoracic Echocardiogram Indication: Altered mental status, CAD, elevated troponin level. BP: 145/50 HR: 56 Rhythm: Bradycardia Findings History: CAD with CABG, HTN, HLD, BPH, former ETOH abuse. Technical Comments: The study quality is fair. The study is technically limited due to poor parasternal windows. Completed at 1310. Left Ventricle: The left ventricular chamber size is normal. Mild concentric left ventricular hypertrophy is observed. Global left ventricular wall motion and contractility are within normal limits. There is normal left ventricular systolic function. The estimated ejection fraction is 55-60%. Normal left ventricular diastolic filling is observed. Left Atrium: The left atrium is moderately dilated. Right Ventricle: The right ventricle is slightly dilated. The right ventricular global systolic function is normal. Right Atrium: The right atrium is mildly dilated. Aortic Valve: The aortic valve is trileaflet. The aortic valve leaflets are mildly thickened. There is mild to moderate aortic regurgitation. There is no evidence of aortic stenosis. Mitral Valve: There is mitral annular calcification. The mitral valve leaflets are mildly thickened. There is mild mitral regurgitation. There is no evidence of mitral stenosis. Tricuspid Valve: The tricuspid valve leaflets are normal. There is mild tricuspid regurgitation. The right ventricular systolic pressure is estimated at 49 mmHg. There is evidence of moderate pulmonary hypertension. There is no tricuspid stenosis. Pulmonic Valve: The pulmonic valve appears normal. There is a trace pulmonic regurgitation. There is no pulmonic stenosis. Pericardium: There is no significant pericardial effusion. Aorta: There is no dilatation of the ascending aorta. There is no dilatation of the aortic arch. There is no dilation of the aortic root. Pulmonary Artery: The main pulmonary artery is not well visualized. Venous: The venous system is not well visualized. Conclusions Global left ventricular wall motion and contractility are within normal limits. There is normal left ventricular systolic function. The estimated ejection fraction is 55-60%. The aortic valve leaflets are mildly thickened. There is mild to moderate aortic regurgitation. There is no evidence of aortic stenosis. There is mild mitral regurgitation. There is mild tricuspid regurgitation. There is evidence of moderate pulmonary hypertension. There is no significant pericardial effusion. Compared to study of 10/09/15, the LV function is the same The degree of AR and Est PASP are slightly worse Measurements Name Value Normal Range RVIDd (AP) 2D 2.3 cm (0.9 - 2.6) RVDdMajor (2D) 4.5 cm (2.2 - 4.4) RAd ISD 4CH 5.3 cm (3.4 - 4.9) RA (A4C)W 4 cm (2.9 - 4.6) IVSd (2D) 1.1 cm (0.6 - 1) LVPWd (2D) 1.1 cm (0.6 - 1) LVIDd (2D) 4.6 cm (3.6 - 5.4) LVIDs (2D) 3 cm - LV FS (2D) 35 % (25 - 45) Aortic Annulus 1.7 cm (1.4 - 2.6) Ao root diameter (2D) 3.1 cm (2.1 - 3.5) Ascending Ao 3.2 cm (2.1 - 3.4) Aortic arch 2.4 cm (1.8 - 3.4) LA dimension (AP) 2D 4.2 cm (2.3 - 3.8) LAd ISD 4CH 5.2 cm (2.9 - 5.3) LA ISD 4CH W 4.9 cm (2.5 - 4.5) Name Value Normal Range LA ESV SP 4CH (A/L) 49 ml - LA ESV SP 2CH (A/L) 93 ml - LA ESV BP (A/L) 69 ml - LA ESV BP (A/L) index 42.34 ml/m2 - LA ESV SP 4CH (MOD) 46 ml - LA ESV SP 2CH (MOD) 84 ml - Name Value Normal Range MV E-wave Vmax 0.91 m/sec - MV deceleration time 179.58 msec - MV A-wave Vmax 0.65 m/sec - MV E:A ratio 1.41 ratio - LV septal e' Vmax 0.09 m/sec - LV lateral e' Vmax 0.1 m/sec - LV E:e' septal ratio 10.11 ratio - LV E:e' lateral ratio 9.1 ratio - Name Value Normal Range AV Vmax 1.67 m/sec - AV VTI 35 cm - AV peak gradient 11.18 mmHg - AV mean gradient 5.16 mmHg - LVOT Vmax 1.2 m/sec - LVOT VTI 25.58 cm - LVOT peak gradient 5.93 mmHg - LVOT mean gradient 2.8 mmHg - AR PHT 355 msec - AR peak gradient 60.6 mmHg - AUDREY Vmax 0.68 m/sec - Name Value Normal Range TR Vmax 2.8 m/sec - TR peak gradient 31 mmHg - RAP 8 mmHg - RVSP 49 mmHg - Name Value Normal Range PV Vmax 0.8 m/sec - PV peak gradient 2.53 mmHg -
--- NOTE | 2017-06-13 14:17 | PN ---
Subjective Date of Service: 06/13/17 Interval History: Slept very poorly, complaint of his burning/crawling sensation from waist down and bilateral hands. Did not initially realize that liberty busch had been left in the room for his own use prn. Relates higher and more frequent doses of the oxycodone prescribed by PCP Dr. Grimaldo - taking oxycodone 10mg/325mg tylenol x2 tabs every 4 hours or so at home (6:30, 10:30, 1400) and then sometimes another in evening. Wants to go to [facility] upon discharge, does not feel safe for home. UCx negative, No ECHO yet. Did not notice difference with flomax. Refused to work with PT 2/2 fatigue. Objective Active Medications: Acetaminophen (Tylenol Tab*) 650 mg PO Q4H PRN PRN Reason: FEVER/PAIN Last Admin: 06/11/17 23:52 Dose: 650 mg Albuterol (Ventolin Hfa Inhaler*) 2 puff INH Q4H PRN PRN Reason: SHORTNESS OF BREATH Aspirin (Aspirin Ec Low Dose*) 81 mg PO DAILY [facility] Last Admin: 06/13/17 09:24 Dose: 81 mg Atorvastatin Calcium (Lipitor*) 10 mg PO BEDTIME ISAIAS PRN Reason: Protocol Last Admin: 06/12/17 21:16 Dose: 10 mg Cetirizine HCl (Zyrtec*) 10 mg PO DAILY ISAIAS PRN Reason: Protocol Last Admin: 06/13/17 09:24 Dose: 10 mg Cyanocobalamin (Vitamin B12 Tab*) 2,000 mcg PO DAILY [facility] Last Admin: 06/13/17 09:24 Dose: 2,000 mcg Furosemide (Lasix Tab*) 20 mg PO DAILY [facility] Gabapentin (Neurontin Cap(*)) 900 mg PO TID [facility] Last Admin: 06/13/17 09:23 Dose: 900 mg Heparin Sodium (Porcine) (Heparin Vial(*)) 5,000 units SUBCUT Q8HR [facility] Last Admin: 06/13/17 05:15 Dose: 5,000 units Hydralazine HCl (Apresoline Iv*) 5 mg IV SLOW PU Q6H PRN PRN Reason: BLOOD PRESSURE Azithromycin 500 mg/ Sodium (Chloride) 250 mls @ 250 mls/hr IVPB Q24H [facility] Last Admin: 06/12/17 18:29 Dose: 250 mls/hr Ibuprofen (Motrin Tab*) 400 mg PO Q6H PRN PRN Reason: PAIN - ARTHRITIS Last Admin: 06/12/17 03:41 Dose: 400 mg Metoprolol Succinate (Toprol Xl Tab*) 25 mg PO DAILY [facility] Last Admin: 06/13/17 09:24 Dose: 25 mg Multi-Ingredient Liniment/Rub (Tod Murry*) 1 applic TOPICAL Q2H PRN PRN Reason: PAIN - ARTHRITIS Last Admin: 06/13/17 02:38 Dose: 1 applic Ondansetron HCl (Zofran Inj*) 4 mg IV Q6H PRN PRN Reason: NAUSEA Oxycodone HCl (Roxycodone Tab*) 20 mg PO Q4HR PRN PRN Reason: PAIN Pharmacy Consult (Zosyn Per Pharmacy*) 1 note FOLLOW UP .ZOSYN PER PHARMACY [facility] Polyethylene Glycol/Electrolytes (Miralax*) 17 gm PO DAILY PRN PRN Reason: CONSTIPATION Tamsulosin HCl (Flomax Cap*) 0.4 mg PO DAILY [facility] Last Admin: 06/13/17 09:23 Dose: 0.4 mg Vital Signs 06/13/17 06/13/17 06/13/17 05:09 05:14 05:19 Temperature 98.4 F 98.4 F Pulse Rate 68 68 Respiratory 20 18 20 Rate Blood Pressure 147/50 147/50 (mmHg) O2 Sat by Pulse 93 Oximetry 06/13/17 06/13/17 06/13/17 07:14 07:43 09:12 Temperature Pulse Rate 57 Respiratory 19 18 19 Rate Blood Pressure 126/36 (mmHg) O2 Sat by Pulse 97 Oximetry 06/13/17 06/13/17 06/13/17 09:17 09:23 09:42 Temperature Pulse Rate 78 Respiratory 19 Rate Blood Pressure 135/50 (mmHg) O2 Sat by Pulse 96 Oximetry Oxygen Devices in Use Now: None Appearance: Fatigued. Chronically ill appearing Eyes: No Scleral Icterus, PERRLA Ears/Nose/Mouth/Throat: Mucous Membranes Moist Neck: NL Appearance and Movements; NL JVP Respiratory: Symmetrical Chest Expansion and Respiratory Effort, Clear to Auscultation Cardiovascular: NL Sounds; No Murmurs; No JVD, RRR Abdominal: NL Sounds; No Tenderness; No Distention Extremities: - - trace-1+ edema bilaterally Skin: No Rash or Ulcers Neurological: Alert and Oriented x 3 Result Diagrams: 06/12/17 04:57 06/13/17 05:33 Additional Lab and Data: Lab Results 06/11/17 06/11/17 06/11/17 Range/Units 15:15 15:15 15:15 WBC (3.5-10.8) 10^3/ul RBC (4.0-5.4) 10^6/ul Hgb (14.0-18.0) g/dl Hct (42-52) % MCV (80-94) fL MCH (27-31) pg MCHC (31-36) g/dl RDW (10.5-15) % Plt Count (150-450) 10^3/ul MPV (7.4-10.4) um3 Neut % (Auto) (38-83) % Lymph % (Auto) (25-47) % Walker % (Auto) (1-9) % Eos % (Auto) (0-6) % Baso % (Auto) (0-2) % Absolute Neuts (auto) (1.5-7.7) 10^3/ul Absolute Lymphs (auto) (1.0-4.8) 10^3/ul Absolute Monos (auto) (0-0.8) 10^3/ul Absolute Eos (auto) (0-0.6) 10^3/ul Absolute Basos (auto) (0-0.2) 10^3/ul Absolute Nucleated RBC 10^3/ul Nucleated RBC % INR (Anticoag Therapy) 1.11 (0.89-1.11) D-Dimer, Quantitative 219 (Less Than 230) ng/mL Sodium 127 L (133-145) mmol/L Potassium 3.8 (3.5-5.0) mmol/L Chloride 92 L (101-111) mmol/L Carbon Dioxide 27 (22-32) mmol/L Anion Gap 8 (2-11) mmol/L BUN 11 (6-24) mg/dL Creatinine 0.89 (0.67-1.17) mg/dL Est GFR ( Amer) 106.9 (>60) Est GFR (Non-Af Amer) 83.1 (>60) BUN/Creatinine Ratio 12.4 (8-20) Glucose 125 H (70-100) mg/dL Lactic Acid (0.5-2.0) mmol/L Calcium 9.7 (8.6-10.3) mg/dL Total Bilirubin 0.90 (0.2-1.0) mg/dL AST 19 (13-39) U/L ALT 13 (7-52) U/L Alkaline Phosphatase 46 (34-104) U/L Ammonia 26 (16-53) mol/L Total Creatine Kinase 199 (10-223) U/L Troponin I 0.12 H* (<0.04) ng/mL Total Protein 7.0 (6.4-8.9) g/dL Albumin 4.1 (3.2-5.2) g/dL Globulin 2.9 (2-4) g/dL Albumin/Globulin Ratio 1.4 (1-3) TSH 0.36 (0.34-5.60) mcIU/mL Urine Color Urine Appearance Urine pH (5-9) Ur Specific [place] (1.010-1.030) Urine Protein (Negative) Urine Ketones (Negative) Urine Blood (Negative) Urine Nitrate (Negative) Urine Bilirubin (Negative) Urine Urobilinogen (Negative) Ur Leukocyte Esterase (Negative) Urine WBC (Auto) (Absent) Urine RBC (Auto) (Absent) Urine Bacteria (Absent) Urine Glucose (Negative) Urine Opiates Screen (None Detect) Acetaminophen < 15 mcg/mL Ur Barbiturates Screen (None Detect) Ur Phencyclidine Scrn (None Detect) Ur Amphetamines Screen (None Detect) U Benzodiazepines Scrn (None Detect) Urine Cocaine Screen (None Detect) U Cannabinoids Screen (None Detect) Serum Alcohol < 10 (<10) mg/dL 06/11/17 06/11/17 06/11/17 Range/Units 15:15 15:15 15:35 WBC 15.5 H (3.5-10.8) 10^3/ul RBC 3.92 L (4.0-5.4) 10^6/ul Hgb 12.5 L (14.0-18.0) g/dl Hct 37 L (42-52) % MCV 93 (80-94) fL MCH 32 H (27-31) pg MCHC 34 (31-36) g/dl RDW 13 (10.5-15) % Plt Count 185 (150-450) 10^3/ul MPV 8 (7.4-10.4) um3 Neut % (Auto) 91.4 H (38-83) % Lymph % (Auto) 3.6 L (25-47) % Walker % (Auto) 4.6 (1-9) % Eos % (Auto) 0 (0-6) % Baso % (Auto) 0.4 (0-2) % Absolute Neuts (auto) 14.2 H (1.5-7.7) 10^3/ul Absolute Lymphs (auto) 0.6 L (1.0-4.8) 10^3/ul Absolute Monos (auto) 0.7 (0-0.8) 10^3/ul Absolute Eos (auto) 0 (0-0.6) 10^3/ul Absolute Basos (auto) 0.1 (0-0.2) 10^3/ul Absolute Nucleated RBC 0 10^3/ul Nucleated RBC % 0 INR (Anticoag Therapy) (0.89-1.11) D-Dimer, Quantitative (Less Than 230) ng/mL Sodium (133-145) mmol/L Potassium (3.5-5.0) mmol/L Chloride (101-111) mmol/L Carbon Dioxide (22-32) mmol/L Anion Gap (2-11) mmol/L BUN (6-24) mg/dL Creatinine (0.67-1.17) mg/dL Est GFR ( Amer) (>60) Est GFR (Non-Af Amer) (>60) BUN/Creatinine Ratio (8-20) Glucose (70-100) mg/dL Lactic Acid 0.8 (0.5-2.0) mmol/L Calcium (8.6-10.3) mg/dL Total Bilirubin (0.2-1.0) mg/dL AST (13-39) U/L ALT (7-52) U/L Alkaline Phosphatase (34-104) U/L Ammonia (16-53) mol/L Total Creatine Kinase (10-223) U/L Troponin I (<0.04) ng/mL Total Protein (6.4-8.9) g/dL Albumin (3.2-5.2) g/dL Globulin (2-4) g/dL Albumin/Globulin Ratio (1-3) TSH (0.34-5.60) mcIU/mL Urine Color Urine Appearance Urine pH (5-9) Ur Specific [place] (1.010-1.030) Urine Protein (Negative) Urine Ketones (Negative) Urine Blood (Negative) Urine Nitrate (Negative) Urine Bilirubin (Negative) Urine Urobilinogen (Negative) Ur Leukocyte Esterase (Negative) Urine WBC (Auto) (Absent) Urine RBC (Auto) (Absent) Urine Bacteria (Absent) Urine Glucose (Negative) Urine Opiates Screen Presumptive positive H (None Detect) Acetaminophen mcg/mL Ur Barbiturates Screen None detected (None Detect) Ur Phencyclidine Scrn None detected (None Detect) Ur Amphetamines Screen None detected (None Detect) U Benzodiazepines Scrn None detected (None Detect) Urine Cocaine Screen None detected (None Detect) U Cannabinoids Screen None detected (None Detect) Serum Alcohol (<10) mg/dL 06/11/17 Range/Units 15:35 WBC (3.5-10.8) 10^3/ul RBC (4.0-5.4) 10^6/ul Hgb (14.0-18.0) g/dl Hct (42-52) % MCV (80-94) fL MCH (27-31) pg MCHC (31-36) g/dl RDW (10.5-15) % Plt Count (150-450) 10^3/ul MPV (7.4-10.4) um3 Neut % (Auto) (38-83) % Lymph % (Auto) (25-47) % Walker % (Auto) (1-9) % Eos % (Auto) (0-6) % Baso % (Auto) (0-2) % Absolute Neuts (auto) (1.5-7.7) 10^3/ul Absolute Lymphs (auto) (1.0-4.8) 10^3/ul Absolute Monos (auto) (0-0.8) 10^3/ul Absolute Eos (auto) (0-0.6) 10^3/ul Absolute Basos (auto) (0-0.2) 10^3/ul Absolute Nucleated RBC 10^3/ul Nucleated RBC % INR (Anticoag Therapy) (0.89-1.11) D-Dimer, Quantitative (Less Than 230) ng/mL Sodium (133-145) mmol/L Potassium (3.5-5.0) mmol/L Chloride (101-111) mmol/L Carbon Dioxide (22-32) mmol/L Anion Gap (2-11) mmol/L BUN (6-24) mg/dL Creatinine (0.67-1.17) mg/dL Est GFR ( Amer) (>60) Est GFR (Non-Af Amer) (>60) BUN/Creatinine Ratio (8-20) Glucose (70-100) mg/dL Lactic Acid (0.5-2.0) mmol/L Calcium (8.6-10.3) mg/dL Total Bilirubin (0.2-1.0) mg/dL AST (13-39) U/L ALT (7-52) U/L Alkaline Phosphatase (34-104) U/L Ammonia (16-53) mol/L Total Creatine Kinase (10-223) U/L Troponin I (<0.04) ng/mL Total Protein (6.4-8.9) g/dL Albumin (3.2-5.2) g/dL Globulin (2-4) g/dL Albumin/Globulin Ratio (1-3) TSH (0.34-5.60) mcIU/mL Urine Color Yellow Urine Appearance Clear Urine pH 7.0 (5-9) Ur Specific [place] 1.015 (1.010-1.030) Urine Protein 1+(30 mg/dl) H (Negative) Urine Ketones 1+ H (Negative) Urine Blood Negative (Negative) Urine Nitrate Negative (Negative) Urine Bilirubin Negative (Negative) Urine Urobilinogen Negative (Negative) Ur Leukocyte Esterase Negative (Negative) Urine WBC (Auto) Absent (Absent) Urine RBC (Auto) 1+(3-5/hpf) H (Absent) Urine Bacteria Absent (Absent) Urine Glucose Negative (Negative) Urine Opiates Screen (None Detect) Acetaminophen mcg/mL Ur Barbiturates Screen (None Detect) Ur Phencyclidine Scrn (None Detect) Ur Amphetamines Screen (None Detect) U Benzodiazepines Scrn (None Detect) Urine Cocaine Screen (None Detect) U Cannabinoids Screen (None Detect) Serum Alcohol (<10) mg/dL Microbiology and Other Data: Legionella Urine Antigen Final 06/11/17- 1825 ML Organism 1 Negative Legionella Antigen testing by enzyme immunoassay S.Pneumonia Urine Antigen Final 06/11/17- 1825 ML Organism 1 Negative S. pneumo Antigen Antigen testing by enzyme immunoassay Assess/Plan/Problems-Billing Assessment: 77 year old male PMH EtOH abuse but abstaining last 3 years, CAD s/p CABG, HTN, HLD, BPH, neuropathic pain on chronic opioids presenting with vomiting, AMS and possible fall. Leukocytosis resolved. Never fever. Poor historian, possibly unsafe home environment. Awaiting [facility] placement - Patient Problems (1) Altered mental status Current Visit: Yes Status: Acute Code(s): R41.82 - ALTERED MENTAL STATUS, UNSPECIFIED SNOMED Code(s): 478194293 Comment: Pt is poor historian, AAOx3 currently. DDx dehydration in setting of ?viral gastroenteritis causing vomiting vs medication side effect (only opioids postive on tox screen). Less likely infection (UA clean, CXR unremarkable, no fever but initial leukocytosis) vs hyponatremia (relatively mild, initially 127) vs dementia vs hepatic encephalopathy (significant EtOH use , none for 3 years, ammonina wnl) vs seizure/post-ictal. Improving. Dispo to [facility] (2) Weakness of lower extremity Current Visit: Yes Status: Acute Code(s): R29.898 - OTH SYMPTOMS AND SIGNS INVOLVING THE MUSCULOSKELETAL SYSTEM SNOMED Code(s): 142599350 Comment: Complaint of chronic lower extremity weakness and swelling which may be contributing to his mobilty issues. Trace edema-1+ on exam. Follow-up ECHO ordered on admission (had EF 60-65% Sep 2015). BNP elevated to 453 (was 150 Sep 2015). Reports was on lasix during previous SNF stay but did not continue. Will trial 20mg po lasix daily and await ECHO. (3) Hyponatremia Current Visit: Yes Status: Acute Code(s): E87.1 - HYPO-OSMOLALITY AND HYPONATREMIA SNOMED Code(s): 19005654 Comment: Stable 132. (4) Urinary frequency Current Visit: Yes Status: Acute Code(s): R35.0 - FREQUENCY OF MICTURITION SNOMED Code(s): 327264499 Comment: increasing frequency to q30min from q1hr. UA not concerning for infection. Known BPH. UCx negative. Monitor flomax effects (has seen Dr. Michel in past and tried multiple medicatoins) (5) Elevated troponin Current Visit: Yes Status: Acute Code(s): R74.8 - ABNORMAL LEVELS OF OTHER SERUM ENZYMES SNOMED Code(s): 667294502 Comment: Denies chest pain but potential cause of ?syncope, EKG with <1mm ST depression v4,v5. TWI III. Troponins flat 0.12, 0.12, 0.13. Status and Disposition: Initially observation but will change to inpatient. Likely discharge tomorrow 06/13. Attending: Isidoro Canseco
[2017-06-13] MEDS: oxyCODONE TAB* 5 MG TAB PO PRN (14:26)
[2017-06-13] MEDS: Furosemide TAB* 20 MG PO SCH (14:28)
[2017-06-13] MEDS: Azithromycin IV(*) 500 MG in NS 0.9% 250 ML* 250 ML IVPB SCH (17:45)
[2017-06-13] MEDS: Atorvastatin* 10 MG TAB PO SCH (21:03)
[2017-06-14] MEDS ORDERED: NS 0.9% 1000 ML* 500 ML IV ONE ×2 (00:25→23:45)
[2017-06-14] MEDS ORDERED: NS 0.9% 1000 ML* 1,000 ML IV SCH (01:00)
[2017-06-14] MEDS: oxyCODONE TAB* 5 MG TAB PO PRN ×2 (04:37→21:15)
[2017-06-14] MEDS: Analgesic BALM* 114 GM TOPICAL PRN (04:47)
[2017-06-14] MEDS: Heparin VIAL(*) 5000 UNITS/ML VIAL (FIVE THOUSAND) SUBCUT SCH ×3 (05:35→21:45)
[2017-06-14] MEDS: Cyanocobalamin TAB* 500 MCG PO SCH (08:58)
[2017-06-14] MEDS: Furosemide TAB* 20 MG PO SCH (08:59)
[2017-06-14] MEDS: Cetirizine* 10 MG TAB PO SCH (08:59)
[2017-06-14] MEDS: Tamsulosin CAP* 0.4 MG PO SCH (08:59)
[2017-06-14] MEDS: Gabapentin CAP(*) 300 MG PO SCH ×3 (08:59→21:15)
[2017-06-14] MEDS: Polyethylene Glycol 3350* 17 GM PACKET PO PRN (09:00)
[2017-06-14] MEDS: Metoprolol Succinate XL TAB* 25 MG PO SCH (09:00)
[2017-06-14] MEDS: Aspirin EC Low Dose* 81 MG TAB.EC PO SCH (09:00)
--- NOTE | 2017-06-14 11:11 | PN ---
Subjective Date of Service: 06/14/17 Interval History: Pt with best night yet after increase in his pain meds back to original home dosing. Pt was noted to have wide pulse pressure through out day and got 500cc then 125cc/hr after recorded 120/26 while asleep. Asymptomatic. Unclear if that was a manual or automatic cuff. 128/50 manually this AM. Attests now considering going straight home. Has 18 year old dog - the "only reason" he is still living at his home instead of another assisted living facility. ECHO done , slightly worse pHTN 49mm form 41. AVR mild-moderate. EF 55-60% Objective Active Medications: Acetaminophen (Tylenol Tab*) 650 mg PO Q4H PRN PRN Reason: FEVER/PAIN Last Admin: 06/11/17 23:52 Dose: 650 mg Albuterol (Ventolin Hfa Inhaler*) 2 puff INH Q4H PRN PRN Reason: SHORTNESS OF BREATH Last Admin: 06/13/17 16:48 Dose: 2 puff Aspirin (Aspirin Ec Low Dose*) 81 mg PO DAILY [facility] Last Admin: 06/14/17 09:00 Dose: 81 mg Atorvastatin Calcium (Lipitor*) 10 mg PO BEDTIME ISAIAS PRN Reason: Protocol Last Admin: 06/13/17 21:03 Dose: 10 mg Cetirizine HCl (Zyrtec*) 10 mg PO DAILY ISAIAS PRN Reason: Protocol Last Admin: 06/14/17 08:59 Dose: 10 mg Cyanocobalamin (Vitamin B12 Tab*) 2,000 mcg PO DAILY [facility] Last Admin: 06/14/17 08:58 Dose: 2,000 mcg Furosemide (Lasix Tab*) 20 mg PO DAILY ISAIAS Last Admin: 06/14/17 08:59 Dose: 20 mg Gabapentin (Neurontin Cap(*)) 900 mg PO TID [facility] Last Admin: 06/14/17 08:59 Dose: 900 mg Heparin Sodium (Porcine) (Heparin Vial(*)) 5,000 units SUBCUT Q8HR [facility] Last Admin: 06/14/17 05:35 Dose: 5,000 units Hydralazine HCl (Apresoline Iv*) 5 mg IV SLOW PU Q6H PRN PRN Reason: BLOOD PRESSURE Azithromycin 500 mg/ Sodium (Chloride) 250 mls @ 250 mls/hr IVPB Q24H [facility] Last Admin: 06/13/17 17:45 Dose: 250 mls/hr Ibuprofen (Motrin Tab*) 400 mg PO Q6H PRN PRN Reason: PAIN - ARTHRITIS Last Admin: 06/12/17 03:41 Dose: 400 mg Metoprolol Succinate (Toprol Xl Tab*) 25 mg PO DAILY [facility] Last Admin: 06/14/17 09:00 Dose: 25 mg Multi-Ingredient Liniment/Rub (Tod Murry*) 1 applic TOPICAL Q2H PRN PRN Reason: PAIN - ARTHRITIS Last Admin: 06/14/17 04:47 Dose: 1 applic Ondansetron HCl (Zofran Inj*) 4 mg IV Q6H PRN PRN Reason: NAUSEA Oxycodone HCl (Roxycodone Tab*) 20 mg PO Q4HR PRN PRN Reason: PAIN Last Admin: 06/14/17 04:37 Dose: 20 mg Pharmacy Consult (Zosyn Per Pharmacy*) 1 note FOLLOW UP .ZOSYN PER PHARMACY [facility] Polyethylene Glycol/Electrolytes (Miralax*) 17 gm PO DAILY PRN PRN Reason: CONSTIPATION Last Admin: 06/14/17 09:00 Dose: 17 gm Tamsulosin HCl (Flomax Cap*) 0.4 mg PO DAILY [facility] Last Admin: 06/14/17 08:59 Dose: 0.4 mg Vital Signs 06/13/17 06/13/17 06/13/17 11:11 11:12 11:23 Temperature Pulse Rate 61 Respiratory 18 18 19 Rate Blood Pressure 126/46 (mmHg) O2 Sat by Pulse 98 Oximetry 06/13/17 06/13/17 06/13/17 14:26 14:28 15:41 Temperature 97.6 F Pulse Rate 56 Respiratory 19 19 Rate Blood Pressure 147/47 (mmHg) O2 Sat by Pulse 99 Oximetry 06/13/17 06/13/17 06/13/17 16:26 16:28 19:12 Temperature 97.4 F Pulse Rate 65 Respiratory 20 19 18 Rate Blood Pressure 121/38 (mmHg) O2 Sat by Pulse 100 Oximetry 06/13/17 06/13/17 06/13/17 20:00 21:03 23:03 Temperature Pulse Rate Respiratory 18 16 16 Rate Blood Pressure (mmHg) O2 Sat by Pulse Oximetry 06/13/17 06/13/17 06/14/17 23:32 23:40 00:50 Temperature 98.3 F Pulse Rate 51 52 58 Respiratory 16 Rate Blood Pressure 118/26 120/26 106/28 (mmHg) O2 Sat by Pulse 97 99 Oximetry 06/14/17 06/14/17 06/14/17 03:32 04:37 06:37 Temperature 97.9 F Pulse Rate 57 Respiratory 16 16 16 Rate Blood Pressure 142/48 (mmHg) O2 Sat by Pulse 98 Oximetry 06/14/17 06/14/17 06/14/17 08:00 08:59 09:11 Temperature Pulse Rate Respiratory 17 17 Rate Blood Pressure 128/50 (mmHg) O2 Sat by Pulse Oximetry Oxygen Devices in Use Now: None Appearance: no acute distress. Looking best he has Eyes: No Scleral Icterus Ears/Nose/Mouth/Throat: NL Teeth, Lips, Gums, Mucous Membranes Moist Neck: NL Appearance and Movements; NL JVP Respiratory: Symmetrical Chest Expansion and Respiratory Effort, Clear to Auscultation Cardiovascular: NL Sounds; No Murmurs; No JVD, RRR Abdominal: NL Sounds; No Tenderness; No Distention Extremities: - - 1+ edema Neurological: Alert and Oriented x 3, NL Muscle Strength and Tone Result Diagrams: 06/12/17 04:57 06/13/17 05:33 Additional Lab and Data: Lab Results 06/11/17 06/11/17 06/11/17 Range/Units 15:15 15:15 15:15 WBC (3.5-10.8) 10^3/ul RBC (4.0-5.4) 10^6/ul Hgb (14.0-18.0) g/dl Hct (42-52) % MCV (80-94) fL MCH (27-31) pg MCHC (31-36) g/dl RDW (10.5-15) % Plt Count (150-450) 10^3/ul MPV (7.4-10.4) um3 Neut % (Auto) (38-83) % Lymph % (Auto) (25-47) % Trigg % (Auto) (1-9) % Eos % (Auto) (0-6) % Baso % (Auto) (0-2) % Absolute Neuts (auto) (1.5-7.7) 10^3/ul Absolute Lymphs (auto) (1.0-4.8) 10^3/ul Absolute Monos (auto) (0-0.8) 10^3/ul Absolute Eos (auto) (0-0.6) 10^3/ul Absolute Basos (auto) (0-0.2) 10^3/ul Absolute Nucleated RBC 10^3/ul Nucleated RBC % INR (Anticoag Therapy) 1.11 (0.89-1.11) D-Dimer, Quantitative 219 (Less Than 230) ng/mL Sodium 127 L (133-145) mmol/L Potassium 3.8 (3.5-5.0) mmol/L Chloride 92 L (101-111) mmol/L Carbon Dioxide 27 (22-32) mmol/L Anion Gap 8 (2-11) mmol/L BUN 11 (6-24) mg/dL Creatinine 0.89 (0.67-1.17) mg/dL Est GFR ( Amer) 106.9 (>60) Est GFR (Non-Af Amer) 83.1 (>60) BUN/Creatinine Ratio 12.4 (8-20) Glucose 125 H (70-100) mg/dL Lactic Acid (0.5-2.0) mmol/L Calcium 9.7 (8.6-10.3) mg/dL Total Bilirubin 0.90 (0.2-1.0) mg/dL AST 19 (13-39) U/L ALT 13 (7-52) U/L Alkaline Phosphatase 46 (34-104) U/L Ammonia 26 (16-53) mol/L Total Creatine Kinase 199 (10-223) U/L Troponin I 0.12 H* (<0.04) ng/mL Total Protein 7.0 (6.4-8.9) g/dL Albumin 4.1 (3.2-5.2) g/dL Globulin 2.9 (2-4) g/dL Albumin/Globulin Ratio 1.4 (1-3) TSH 0.36 (0.34-5.60) mcIU/mL Urine Color Urine Appearance Urine pH (5-9) Ur Specific Barron (1.010-1.030) Urine Protein (Negative) Urine Ketones (Negative) Urine Blood (Negative) Urine Nitrate (Negative) Urine Bilirubin (Negative) Urine Urobilinogen (Negative) Ur Leukocyte Esterase (Negative) Urine WBC (Auto) (Absent) Urine RBC (Auto) (Absent) Urine Bacteria (Absent) Urine Glucose (Negative) Urine Opiates Screen (None Detect) Acetaminophen < 15 mcg/mL Ur Barbiturates Screen (None Detect) Ur Phencyclidine Scrn (None Detect) Ur Amphetamines Screen (None Detect) U Benzodiazepines Scrn (None Detect) Urine Cocaine Screen (None Detect) U Cannabinoids Screen (None Detect) Serum Alcohol < 10 (<10) mg/dL 06/11/17 06/11/17 06/11/17 Range/Units 15:15 15:15 15:35 WBC 15.5 H (3.5-10.8) 10^3/ul RBC 3.92 L (4.0-5.4) 10^6/ul Hgb 12.5 L (14.0-18.0) g/dl Hct 37 L (42-52) % MCV 93 (80-94) fL MCH 32 H (27-31) pg MCHC 34 (31-36) g/dl RDW 13 (10.5-15) % Plt Count 185 (150-450) 10^3/ul MPV 8 (7.4-10.4) um3 Neut % (Auto) 91.4 H (38-83) % Lymph % (Auto) 3.6 L (25-47) % Trigg % (Auto) 4.6 (1-9) % Eos % (Auto) 0 (0-6) % Baso % (Auto) 0.4 (0-2) % Absolute Neuts (auto) 14.2 H (1.5-7.7) 10^3/ul Absolute Lymphs (auto) 0.6 L (1.0-4.8) 10^3/ul Absolute Monos (auto) 0.7 (0-0.8) 10^3/ul Absolute Eos (auto) 0 (0-0.6) 10^3/ul Absolute Basos (auto) 0.1 (0-0.2) 10^3/ul Absolute Nucleated RBC 0 10^3/ul Nucleated RBC % 0 INR (Anticoag Therapy) (0.89-1.11) D-Dimer, Quantitative (Less Than 230) ng/mL Sodium (133-145) mmol/L Potassium (3.5-5.0) mmol/L Chloride (101-111) mmol/L Carbon Dioxide (22-32) mmol/L Anion Gap (2-11) mmol/L BUN (6-24) mg/dL Creatinine (0.67-1.17) mg/dL Est GFR ( Amer) (>60) Est GFR (Non-Af Amer) (>60) BUN/Creatinine Ratio (8-20) Glucose (70-100) mg/dL Lactic Acid 0.8 (0.5-2.0) mmol/L Calcium (8.6-10.3) mg/dL Total Bilirubin (0.2-1.0) mg/dL AST (13-39) U/L ALT (7-52) U/L Alkaline Phosphatase (34-104) U/L Ammonia (16-53) mol/L Total Creatine Kinase (10-223) U/L Troponin I (<0.04) ng/mL Total Protein (6.4-8.9) g/dL Albumin (3.2-5.2) g/dL Globulin (2-4) g/dL Albumin/Globulin Ratio (1-3) TSH (0.34-5.60) mcIU/mL Urine Color Urine Appearance Urine pH (5-9) Ur Specific Barron (1.010-1.030) Urine Protein (Negative) Urine Ketones (Negative) Urine Blood (Negative) Urine Nitrate (Negative) Urine Bilirubin (Negative) Urine Urobilinogen (Negative) Ur Leukocyte Esterase (Negative) Urine WBC (Auto) (Absent) Urine RBC (Auto) (Absent) Urine Bacteria (Absent) Urine Glucose (Negative) Urine Opiates Screen Presumptive positive H (None Detect) Acetaminophen mcg/mL Ur Barbiturates Screen None detected (None Detect) Ur Phencyclidine Scrn None detected (None Detect) Ur Amphetamines Screen None detected (None Detect) U Benzodiazepines Scrn None detected (None Detect) Urine Cocaine Screen None detected (None Detect) U Cannabinoids Screen None detected (None Detect) Serum Alcohol (<10) mg/dL 06/11/17 Range/Units 15:35 WBC (3.5-10.8) 10^3/ul RBC (4.0-5.4) 10^6/ul Hgb (14.0-18.0) g/dl Hct (42-52) % MCV (80-94) fL MCH (27-31) pg MCHC (31-36) g/dl RDW (10.5-15) % Plt Count (150-450) 10^3/ul MPV (7.4-10.4) um3 Neut % (Auto) (38-83) % Lymph % (Auto) (25-47) % Trigg % (Auto) (1-9) % Eos % (Auto) (0-6) % Baso % (Auto) (0-2) % Absolute Neuts (auto) (1.5-7.7) 10^3/ul Absolute Lymphs (auto) (1.0-4.8) 10^3/ul Absolute Monos (auto) (0-0.8) 10^3/ul Absolute Eos (auto) (0-0.6) 10^3/ul Absolute Basos (auto) (0-0.2) 10^3/ul Absolute Nucleated RBC 10^3/ul Nucleated RBC % INR (Anticoag Therapy) (0.89-1.11) D-Dimer, Quantitative (Less Than 230) ng/mL Sodium (133-145) mmol/L Potassium (3.5-5.0) mmol/L Chloride (101-111) mmol/L Carbon Dioxide (22-32) mmol/L Anion Gap (2-11) mmol/L BUN (6-24) mg/dL Creatinine (0.67-1.17) mg/dL Est GFR ( Amer) (>60) Est GFR (Non-Af Amer) (>60) BUN/Creatinine Ratio (8-20) Glucose (70-100) mg/dL Lactic Acid (0.5-2.0) mmol/L Calcium (8.6-10.3) mg/dL Total Bilirubin (0.2-1.0) mg/dL AST (13-39) U/L ALT (7-52) U/L Alkaline Phosphatase (34-104) U/L Ammonia (16-53) mol/L Total Creatine Kinase (10-223) U/L Troponin I (<0.04) ng/mL Total Protein (6.4-8.9) g/dL Albumin (3.2-5.2) g/dL Globulin (2-4) g/dL Albumin/Globulin Ratio (1-3) TSH (0.34-5.60) mcIU/mL Urine Color Yellow Urine Appearance Clear Urine pH 7.0 (5-9) Ur Specific Barron 1.015 (1.010-1.030) Urine Protein 1+(30 mg/dl) H (Negative) Urine Ketones 1+ H (Negative) Urine Blood Negative (Negative) Urine Nitrate Negative (Negative) Urine Bilirubin Negative (Negative) Urine Urobilinogen Negative (Negative) Ur Leukocyte Esterase Negative (Negative) Urine WBC (Auto) Absent (Absent) Urine RBC (Auto) 1+(3-5/hpf) H (Absent) Urine Bacteria Absent (Absent) Urine Glucose Negative (Negative) Urine Opiates Screen (None Detect) Acetaminophen mcg/mL Ur Barbiturates Screen (None Detect) Ur Phencyclidine Scrn (None Detect) Ur Amphetamines Screen (None Detect) U Benzodiazepines Scrn (None Detect) Urine Cocaine Screen (None Detect) U Cannabinoids Screen (None Detect) Serum Alcohol (<10) mg/dL Microbiology and Other Data: Legionella Urine Antigen Final 06/11/17- 1825 ML Organism 1 Negative Legionella Antigen testing by enzyme immunoassay S.Pneumonia Urine Antigen Final 06/11/17- 1825 ML Organism 1 Negative S. pneumo Antigen Antigen testing by enzyme immunoassay Assess/Plan/Problems-Billing Assessment: 77 year old male PMH EtOH abuse but abstaining last 3 years, CAD s/p CABG, HTN, HLD, BPH, neuropathic pain on chronic opioids presenting with vomiting, AMS and possible fall. Leukocytosis resolved. Never fever. Improved. Pending potential [facility] placement - Patient Problems (1) Altered mental status Current Visit: Yes Status: Acute Code(s): R41.82 - ALTERED MENTAL STATUS, UNSPECIFIED SNOMED Code(s): 345060755 Comment: More alert and sharp today after some sleep, likely back to baseline. DDx dehydration in setting of ?viral gastroenteritis causing vomiting vs opioid medication side effect. Less likely infection (UA clean, CXR unremarkable, no fever but initial leukocytosis) vs hyponatremia (relatively mild, initially 127) Dispo to [facility] vs home (or convince to ?[facility]) (2) Weakness of lower extremity Current Visit: Yes Status: Acute Code(s): R29.898 - OTH SYMPTOMS AND SIGNS INVOLVING THE MUSCULOSKELETAL SYSTEM SNOMED Code(s): 870240099 Comment: Complaint of chronic lower extremity weakness and swelling which may be contributing to his mobilty issues. 1+ edema on exam after IVF overnight. ECHO with slightly worse RVSP 49mm from 41mm. mild to moderate AVR. EF 55-60%. BNP elevated to 453 (was 150 Sep 2015). Wide pulse pressure noted. Continue 20mg po lasix daily for ~7 days. (3) Hyponatremia Current Visit: Yes Status: Acute Code(s): E87.1 - HYPO-OSMOLALITY AND HYPONATREMIA SNOMED Code(s): 56060119 Comment: Stable 132. (4) Urinary frequency Current Visit: Yes Status: Acute Code(s): R35.0 - FREQUENCY OF MICTURITION SNOMED Code(s): 001209190 Comment: continue flomax (5) Elevated troponin Current Visit: Yes Status: Acute Code(s): R74.8 - ABNORMAL LEVELS OF OTHER SERUM ENZYMES SNOMED Code(s): 542408631 Comment: Denied chest pain but potential cause of ?syncope, EKG with <1mm ST depression v4,v5. TWI III. Troponins flat 0.12, 0.12, 0.13. Status and Disposition: Planned discharge tomorrow 06/15. Attending: Isidoro Canseco
[2017-06-14] MEDS: Ibuprofen TAB* 400 MG PO PRN (14:15)
[2017-06-14] MEDS: Azithromycin TAB* 250 MG PO SCH (16:19)
[2017-06-14] MEDS: Atorvastatin* 10 MG TAB PO SCH (21:15)
[2017-06-15] MEDS ORDERED: NS 0.9% 1000 ML* 500 ML IV ONE (00:07)
[2017-06-15] MEDS: Heparin VIAL(*) 5000 UNITS/ML VIAL (FIVE THOUSAND) SUBCUT SCH ×2 (05:41→12:49)
[2017-06-15] MEDS: Gabapentin CAP(*) 300 MG PO SCH ×2 (09:08→12:49)
[2017-06-15] MEDS: Cyanocobalamin TAB* 500 MCG PO SCH (09:08)
[2017-06-15] MEDS: Tamsulosin CAP* 0.4 MG PO SCH (09:08)
[2017-06-15] MEDS: Aspirin EC Low Dose* 81 MG TAB.EC PO SCH (09:09)
[2017-06-15] MEDS: Metoprolol Succinate XL TAB* 25 MG PO SCH (09:09)
[2017-06-15] MEDS: Cetirizine* 10 MG TAB PO SCH (09:09)
[2017-06-15] MEDS: Azithromycin TAB* 250 MG PO SCH (09:09)
[2017-06-15] MEDS: Polyethylene Glycol 3350* 17 GM PACKET PO PRN (09:13)
[2017-06-15] MEDS: Ibuprofen TAB* 400 MG PO PRN (12:49)
[2017-06-15 12:58] VITALS: BP 161/54
--- NOTE | 2017-06-15 17:01 | EEG ---
ELECTROENCEPHALOGRAPHY: DATE OF PROCEDURE: 06/15/17 DATE OF DICTATION: 06/15/17 PATIENT OF: William Alatorre NP. HISTORY: This is a 77-year-old man being evaluated for 3 episodes of vomiting and altered mental status without remembering these episodes. The study was done to evaluate for seizures. Of note, the patient has had a past history of alcohol abuse. MEDICATIONS: Include: 1. MiraLax. 2. Zofran. 3. Apresoline. 4. Ventolin. 5. Lipitor. 6. Heparin. 7. Flomax. 8. Toprol. 9. Neurontin. 10. Lasix. 11. Zyrtec. 12. Zithromax. 13. Aspirin. 14. Oxycodone. INTERPRETATION: With the patient awake, background cerebral activity consists of right moderate amplitude posterior dominant 8 Hz rhythm. On occasion, there are some left temporal sharp waves. No major asymmetries of background are noted. The patient never falls asleep. IMPRESSION: This awake EEG is abnormal because of the presence of left mid temporal sharp waves suggesting either underlying structural reason in addition to a possible predisposition to focal seizures. [id number]/[facility] #: [id number] LANCE
--- NOTE | 2017-06-16 10:43 | DS ---
DISCHARGE SUMMARY: DATE OF ADMISSION: 06/11/17 DATE OF DISCHARGE: 06/15/17 ADMITTING PROVIDER: William Alatorre NP. ATTENDING PHYSICIAN: Isidoro Canseco MD. PRIMARY CARE PROVIDER: Dr. Grimaldo. PRIMARY DIAGNOSES: 1. Vomiting. 2. Altered mental status. 3. General weakness with suspicion for opioid side effect vs viral gastroenteritis. SECONDARY DIAGNOSES: 1. Coronary artery disease. 2. History of alcohol abuse. 3. Benign prostatic hypertrophy. 4. Urinary frequency. 5. Hypertension. 6. Hyperlipidemia. HISTORY OF PRESENT ILLNESS AND HOSPITAL COURSE: Mr. Mcknight is a 77-year-old male with history of coronary artery disease, hypertension, hyperlipidemia, BPH , alcohol abuse, although abstinent for the last 2 to 3 years, who presented when his neighbors found him lying on the bed, unable to move, holding a urinal full of vomit and urine. Although initially a poor historian, he does remember being alert enough to hold this urinal upright for over 12 hours while still unable to get up from his bed for fear of spilling the contents on to his bed and floor. Of note, he has substantial opioid prescriptions at home that were recently increased. He attests that he takes 20 of oxycodone/650 mg Tylenol every 4 hours for 3 doses with an additional dose in the evening as needed in addition to his 900 mg of gabapentin at the same frequency. He initially had an elevated troponin, which were flat, denied chest pain. He did have a productive cough and was treated with a course of azithromycin. Additional symptoms included swelling in his lower extremities and generalized weakness. He is largely confined to his house with all his food being delivered to him. Today received an echocardiogram, which showed preserved ejection fraction of 55 % to 60%, aortic valve regurgitation [id number] and slightly worse pulmonary hypertension as evidenced by RVSP 49 mmHg increased from 41 mmHg 2 years prior. His BNP was elevated in the 500 range and he was given a few doses of Lasix. He was noted to have a widened pulse pressure during his vital sign checks. He was initially mildly hyponatremic today at 127, which improved to the low 130s after initial IV hydration in the emergency room. His Flomax was restarted for increasing urinary frequency every 30 to 60 minutes at home. He could not remember why he was stopped off this medication, initially only saying that it did not seem to work. His troponins were flat at 0.12, 0.12, and 0.13 and he denied chest pain. His initial EKG had showed less than [address] depressions in V4 through V5 and T-wave inversions in lead III. Admits to have worked with Physical Therapy, who did recommend him for acute rehab facility, but patient although vacillating about his disposition plan almost every day, ultimately decided that he wanted to go home with the aid of home physical therapy and home health aides. 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 He is considering moving to an assisted living facility when his 18-year-old dog passes away. DISCHARGE MEDICATIONS: Included: 1. Albuterol inhaler 2 puffs q.4h. p.r.n. 2. Vitamin C 1000 mg p.o. daily. 3. Aspirin 81 mg daily. 4. Zyrtec 10 mg p.o. daily. 5. Vitamin D3 4000 units p.o. daily. 6. Vitamin B12 tablet 2000 micrograms p.o. daily. 7. Gabapentin 900 mg p.o. t.i.d., though actually taking it every 4 hours with an additional 300 to 600 mg at night p.r.n. 8. Lovastatin 40 mg p.o. at bedtime. 9. Metoprolol succinate XL tablet 25 mg p.o. daily. 10. Nasonex two sprays both nares daily. 11. MiraLAX 17 g p.o. daily. New Medications: 1. Flomax 0.4 mg p.o. daily. 2. Oxycodone/acetaminophen 10 mg/325 mg p.o. q.6h. p.r.n., though actually taking q.4h. with additional breakthrough at night on occasion. DISPOSITION: Home. DIET: Unchanged, regular. FOLLOWUP: The patient was advised to follow up with his primary care physician , Dr. Grimaldo, and strongly consider alternative living situation to include additional support at home given tenuous status and high opioid use. [id number]/[facility] #: [id number] LANCE
== END 2017-06-15 13:30 | disposition home or self-care (01) | DRG 641 ==
LOC: ED 15:03 → UNDOADMOB 16:50 → MEDTELE 16:50 → OBSVTOIN 06-12 18:23 → MEDTELE 06-13 01:49 → OBSVTOIN 06-13 03:23 → INTOOBSV 06-13 03:23 → MEDTELE 06-13 19:12 → MED 06-13 19:12 → UNDODISIN 06-15 13:30
PROVIDERS: ADMIT Internal Medicine; ATTEND Internal Medicine
DX: E86.0 Dehydration (principal); A08.4 Viral intestinal infection, unspecified; E87.1 Hypo-osmolality and hyponatremia; I11.9 Hypertensive heart disease without heart failure; T40.2X5A Adverse effect of other opioids, initial encounter; Y92.009 Unspecified place in unspecified non-institutional (private) residence as the place of occurrence of the external cause; X58.XXXA Exposure to other specified factors, initial encounter; R53.1 Weakness; R35.0 Frequency of micturition; R74.8 Abnormal levels of other serum enzymes; D72.829 Elevated white blood cell count, unspecified; I25.10 Atherosclerotic heart disease of native coronary artery without angina pectoris; Z95.1 Presence of aortocoronary bypass graft; E78.5 Hyperlipidemia, unspecified; N40.1 Benign prostatic hyperplasia with lower urinary tract symptoms; J30.2 Other seasonal allergic rhinitis; F10.21 Alcohol dependence, in remission; Z87.891 Personal history of nicotine dependence; Z96.642 Presence of left artificial hip joint; Z96.652 Presence of left artificial knee joint; Z79.1 Long term (current) use of non-steroidal anti-inflammatories (NSAID); Z79.82 Long term (current) use of aspirin; Z79.891 Long term (current) use of opiate analgesic; Z79.899 Other long term (current) drug therapy; Z88.8 Allergy status to other drugs, medicaments and biological substances; Z80.0 Family history of malignant neoplasm of digestive organs; Z82.49 Family history of ischemic heart disease and other diseases of the circulatory system
CPT/HCPCS: 36415; 70450; 71010; 80048; 80053; 80307; 80320; 80329; 81003; 81015; 82140; 82550; 83605; 83880; 84443; 84484; 85025; 85379; 85610; 87040; 87086; 87899; 93005; 93306; 94640; 94760; 95816; A9270-GY; G0378; G0480; J0456; J1644; J2543

== ENCOUNTER 2017-09-15 09:37 | Inpatient (IN) | payer MEDICARE ==
[2017-09-15 10:13] LABS: Hematocrit 29 % (42-52); Hemoglobin 9.7 g/dl (14.0-18.0); Mean Corpuscular HGB Conc 34 g/dl (31-36); Mean Corpuscular Hemoglobin 31 pg (27-31); Mean Corpuscular Volume 91 fL (80-94); Mean Platelet Volume 8 um3 (7.4-10.4); Red Blood Count 3.17 10^6/ul (4.0-5.4); Red Cell Distribution Width 13 % (10.5-15)
[2017-09-15 10:29] LABS: Albumin 3.5 g/dL (3.2-5.2); BUN/Creatinine Ratio 16.9 (8-20); C Reactive Protein 67.58 mg/L (< 5.00); Calcium 9.5 mg/dL (8.6-10.3); EGFR African American 106.9 (>60); EGFR Non-African American 83.1 (>60); Globulin 3.1 g/dL (2-4); Potassium 4.2 mmol/L (3.5-5.0); Total Bilirubin 0.4 mg/dL (0.2-1.0); Total Protein 6.6 g/dL (6.4-8.9); Uric Acid 5.5 mg/dL (4.4-7.6)
--- NOTE | 2017-09-15 12:07 | RAD ---
HISTORY: Lower extremity swelling and pain COMPARISONS: October 08, 2015 TECHNIQUE: Multiple transverse and longitudinal ultrasound images were obtained of the bilateral lower extremities from the level of the common femoral vein inferiorly through to the infrapopliteal veins using grayscale, color Doppler, and spectral Doppler imaging with and without compression and with augmentation. FINDINGS: VEINS: The venous system of the bilateral lower extremities is compressible throughout its course, with normal flow on color Doppler imaging and normal response to augmentation on spectral Doppler imaging. SOFT TISSUES: Unremarkable. OTHER FINDINGS: None. IMPRESSION: NO RIGHT LOWER EXTREMITY DEEP VEIN THROMBOSIS. NO LEFT LOWER EXTREMITY DEEP VEIN THROMBOSIS
[2017-09-15 12:09] LABS: Urine Bacteria Absent (Absent); Urine Bilirubin Negative (Negative); Urine Glucose Negative (Negative); Urine Nitrite Negative (Negative)
[2017-09-15 12:27] LABS: Erythrocyte Sed Rate 86 mm/Hr (0-40)
[2017-09-15] MEDS ORDERED: Ondansetron INJ* 2 MG/ML VIAL IV PRN (14:04)
[2017-09-15] MEDS ORDERED: Acetaminophen TAB* 325 MG PO PRN (14:04)
[2017-09-15] MEDS ORDERED: Albuterol HFA INHALER* 8 gm MDI INH PRN (14:07)
[2017-09-15] MEDS ORDERED: NS 0.9% 1000 ML* 1,000 ML IV SCH (14:15)
[2017-09-15] MEDS: predniSONE TAB* 20 MG PO SCH (14:43)
--- NOTE | 2017-09-15 14:51 | HP ---
HISTORY AND PHYSICAL: ADDENDUM: Mr. Juan Luis Felix is a 77-year-old male with a history of remote alcohol use, who presents complaining of feeling generalized weakness. His inflammatory markers are up including his ESR of 86 and C-reactive protein of about 60. He also is weak to the point of inability to walk. He is going to be placed on overnight observation. We discussed the case with Dr. Frias from Rheumatology for possibility of rheumatologic evaluation. We will also check SWETA and rheumatoid factor. For further details of patient's admission and plan , please history and physical dictated by William Alatorre on 09/15/17, with which I agree. [id number]/[facility] #: [id number] LANCE
[2017-09-15] MEDS ORDERED: Iohexol 300* (CONTRAST) 10 ML SDV IV ONE (15:29)
--- NOTE | 2017-09-15 16:34 | RAD ---
Indication: Weakness, unsteady gait. Pain and edema in the bilateral lower extremities. Difficulty urinating. Comparison: June 11, 2017 CT January 08, 2004 MRI. Technique: MyAGENTa 1.5 Tigist [id number] with GEM suite. MRI brain without contrast. Report: Diffusion series is negative for acute or subacute ischemia. Susceptibility series is negative for stigmata of hemosiderin deposition to indicate previous hemorrhage. Moderate prominence of the cerebral sulci and mild prominence of the cerebellar fissures. Proportional enlargement of the lateral ventricles. Unremarkable third and fourth ventricles as well as the basal cisterns. Few foci of T2 FLAIR hyperintensity within the periventricular white matter of the RIGHT frontal and occipital lobes without significant change compared with the 2004 exam without concern. No intra or extra-axial fluid collection. Negative for mass effect. Preserved major intracranial flow-voids. Grossly clear paranasal sinuses and mastoid air spaces. No suspicious calvarial or skull base lesion evident. Unremarkable scalp. IMPRESSION: 1. No acute intracranial process evident. 2. Involutional change with progression compared with the 2004 exam.
--- NOTE | 2017-09-15 16:49 | RAD ---
Indication: Left lower quadrant pain. Contrast: Administered 92.1 ml of OMNIPAQUE 300 mg/ml CT of the abdomen and pelvis was performed after oral and IV contrast administration. Coronal and sagittal reconstructed images were obtained. There is a mass in the right lower lobe of the lung just above the right hemidiaphragm. No pleural fluid is identified. The heart is of normal size without evidence of pericardial effusion. Liver is normal in size. No focal lesions or intrahepatic ductal dilatation is noted. The gallbladder demonstrates no calcified gallstones. No pericholecystic fluid or wall thickening is identified. The spleen is normal in size. The pancreas demonstrates no mass or pancreatic duct dilatation. No adrenal masses are noted. The kidneys demonstrate symmetric nephrograms without hydronephrosis. Atherosclerotic aorta is noted. No retroperitoneal lymphadenopathy is noted. No dilated loops of bowel are noted. CT of the pelvis demonstrates no retroperitoneal or pelvic lymphadenopathy. The left hip demonstrates left hip replacement. Urinary bladder is unremarkable. No hernias are identified. No hernias are noted. Patient status post right hernia repair. IMPRESSION: There is a mass in the right lower lobe of the lung field measuring approximately 4.3 x 3.0 cm. Motion artifact degrades the images. No masses or pelvic fluid collections are noted. Patient status post left hip replacement.
--- NOTE | 2017-09-15 17:13 | HP ---
ATTENDING PHYSICIAN ADDENDUM NOW INCLUDED ON THIS REPORT CC: Dr. Grimaldo; Dr. Frias* HISTORY AND PHYSICAL: DATE OF ADMISSION: 09/15/17 PRIMARY CARE PROVIDER: Dr. Grimaldo. ATTENDING PHYSICIAN WHILE IN THE HOSPITAL: Angelita Agustin MD * (report dictated by William Alatorre NP). CHIEF COMPLAINT: 1. Aching. 2. Weakness. HISTORY OF PRESENT ILLNESS: Mr. Felix is 77-year-old male patient, he has a history of hyperlipidemia, hypertension, BPH, CAD, and history of ETOH abuse in the past. He comes into our ER today, stating that he has not been feeling well for like the last month. He has been aching. He has been having pain in both of his hips, going down his lower extremities. He has been taking a significant amount of opiates with no avail. He denied having any fevers or chills. There has been no nausea or vomiting. He says his gait has been unsteady. He has been aching. He was feeling weak. He says he just has been so tired of all this pain and he is hoping that it would all end. He denies having any fevers or chills. There has been no coughing. No dysuria. No frequency. No rhinorrhea. No sore throat. No recent changes in medications. He denies having any dysuria or frequency. He came into the ED today because he wants to sell his house and get placed at a [facility] due to the fact that he has been having difficulty getting around, having pain and just not feeling well. He says particularly the pain in both hips and goes down both lower extremities. He came into the ED, he was evaluated, it was noted that his ESR and CRP were elevated. There was no obvious source of reason for this to be elevated and there was concern because of the weakness and the fact that he could not manage while at home, we were asked to evaluate for admission. PAST MEDICAL HISTORY: Significant for: 1. Hyperlipidemia. 2. Hypertension. 3. BPH. 4. CAD. 5. ETOH abuse. PAST SURGICAL HISTORY: 1. He has had hernia repair. 2. Left total hip replacement. 3. Left total knee replacement. 4. He has had open heart surgery. 5. He has had heart catheterization. MEDICATIONS: His home meds according to the list that was provided includes: 1. Nasonex 2 sprays both nares daily as needed. 2. Aspirin 325 mg p.o. daily. 3. Multivitamin 1 tablet daily. 4. Gabapentin 600 mg p.o. t.i.d. 5. ProAir 2 puffs inhaled every 4 hours as needed. 6. Toprol-XL 25 mg daily. 7. Lovastatin 40 mg p.o. at bedtime. 8. Flomax 0.4 mg daily. 9. Vitamin B12 2500 mcg daily. 10. Vitamin D 1000 units p.o. daily. 11. Vitamin C 1000 mg p.o. daily. 12. Tylenol 500 mg every 6 hours as needed. 13. Percocet 10/325, 2 tablets every 6 hours as needed. 14. Hydrochlorothiazide 25 mg daily. ALLERGIES TO MEDICATIONS: Include HYDROCODONE. FAMILY HISTORY: Mother had a history of liver cancer. Father had a history of CO. SOCIAL HISTORY: He is a former smoker. He is a former alcoholic, his last drink was 2 to 3 years ago. Surrogate decision maker is his brother, Joel. REVIEW OF SYSTEMS: There is no documented fever. He denied having any significant weight change. There was no double vision. He denies having any ear discharge. No rhinorrhea. No sore throat. No thyroid enlargement. He denied having any chest pain. There was no orthopnea. No nocturnal dyspnea. No abdominal pain. There was no nausea. No vomiting. No dysuria. No frequency. No seizure. No loss of consciousness. No pruritus and no skin ulcerations. Review of 14 systems was completed, all others negative. PHYSICAL EXAMINATION GENERAL: At this time, Mr. Felix is a 77-year-old male patient. He is sitting in the ER stretcher. He does not appear to be in any acute distress. VITAL SIGNS: Blood pressure 139/66, pulse 83, respirations 18, O2 sat 98%, temperature 98.5. HEENT: Head atraumatic. Eyes: EOMs intact. Sclerae anicteric, not pale. Throat: Oral mucosa appears to be moist. No oropharyngeal erythema. NECK: Supple. LUNGS: Clear to auscultation bilaterally. No wheezes, rales, or rhonchi. HEART: S1, S2. Regular rate and rhythm. No murmurs, rubs, or gallops. ABDOMEN: Soft, flat. There was tenderness in the left lower quadrant. Bowel sounds present. EXTREMITIES: Pulses were 2+ throughout. He was able to move all 4 extremities , but he does move them slowly. He did have 5/5 strength in upper extremities, 4/4 strength in bilateral lower extremities. NEUROLOGIC: He is awake, he is alert, he is oriented x3. His speech is clear. His tongue is midline. His business employment specialist were equal. No facial drooping. He had no gross obvious focal deficits. When we were going to stand him up, he appeared to be significantly debilitated and weak. His gait was not tested due to the weakness, I was concerned that he could fall. SKIN: His skin was intact. DIAGNOSTIC STUDIES/LAB DATA: WBC of 11.0, RBC of 3.17, hemoglobin of 9.7, hematocrit of 29, platelet count 273,000. ESR was 86. His sodium was 132, potassium 4.2, chloride 98, bicarb 28, BUN 15, creatinine 0.89, glucose was 109 , lactic 0.7, uric acid 5.5, calcium 9.5, total bili 0.4, AST 40, ALT 19, alk phos 60. CRP was 67, albumin of 3.5. Urine showed trace ketones, 1+ blood. Venous Doppler of the lower extremities, which revealed no right lower extremity DVT, no left lower extremity DVT. Old medical records were reviewed. ASSESSMENT AND PLAN: Mr. Felix is a 77-year-old male patient coming into the ER today with complaints of weakness. We were asked to evaluate for admission. He will be admitted under observation status for: 1. Weakness. He does have pain in the hips that is going down to the legs. He is not having any headaches or any jaw pain that maybe he does have polymyalgia rheumatica and with the elevated ESR and CRP, I am going to get Dr. Frias to evaluate him. Due to the unsteady gait, I am going to get an MRI of the brain and if this is positive, I will get a neurology consult and I am also going to get a CT of the abdomen and pelvis given the left lower quadrant pain. The ESR and CRP is elevated, I want to make sure that there is no underlying infections, so I am checking him for flu and I am also checking him for blood cultures, henry culturing him. No antibiotics spikes a fever. I am going to start him on a moderate dose of steroids at 40 mg a day with the recommendation of Dr. Frias. If he improves rapidly, then this is mostly likely again polymyalgia rheumatica and we will continue to follow him closely. 2. History of coronary artery disease. Continue his aspirin, statin, and beta - cheryl therapy. 3. Hypertension. Continue meds as prescribed with the exception of the hydrochlorothiazide. I am going to hold this because of his low sodium. 4. Hyperlipidemia. Continue statin therapy. 5. ETOH abuse. I am going to check B12 level as certainly this could be contributing to his weakness. 6. Benign prostatic hyperplasia. Continue meds as prescribed. 7. DVT prophylaxis. He has been placed on heparin subcu. 8. Code status. He wishes to be a DNR. We will see if there has been a MOLST already filled out, if not we will need to get one filled out with him. 9. Fluids, electrolytes, and nutrition. He can have a regular diet. TIME SPENT: Time spent on the admission was 60 minutes, greater than half the time was spent [id number] with the patient, obtaining my history and physical , other half of the time was spent going over the plan of care with the patient and implementing plan of care. I did discuss the plan of care with my attending, Dr. Agustin; she is in agreement. WILLIAM ALATORRE, ELIER ADDENDUM: Mr. Juan Luis Felix is a 77-year-old male with a history of remote alcohol use, who presents complaining of feeling generalized weakness. His inflammatory markers are up including his ESR of 86 and C-reactive protein of about 60. He also is weak to the point of inability to walk. He is going to be placed on overnight observation. We discussed the case with Dr. Frias from Rheumatology for possibility of rheumatologic evaluation. We will also check SWETA and rheumatoid factor. For further details of patient's admission and plan, please history and physical dictated by William Alatorre on 09/15/17, with which I agree. ANGELITA AGUSTIN MD [id number]/[id number] #: [id number]/[id number] #: [id number] LANCE
[2017-09-15] MEDS ORDERED: Magnesium Hydroxide LIQ* 30 ML UDC PO PRN (17:55)
--- NOTE | 2017-09-15 19:18 | CONSULT ---
Consult Consult: Mr. Felix is a 77 year old man with a history of progressive weakness and stiffness, proximal muscle weakness and progressive decline in physical function. His workup so far is notable for elevated inflammatory markers, elevated CK, progressive anemia and a right lung mass. While some of his symptoms could be explained by polymyalgia rheumatica, I do wonder if he could have another inflammatory process contributing to his symptoms, such as a paraneoplastic process (or reactive process). He is also at risk for rhabdomyolysis. I agree with a steroid trial of Prednisone of 40mg daily. Continue gentle hydration to prevent rhabdomyolysis. I would also recommend a pulmonology consultation to evaluate his right lung mass. Complete connective tissue workup.
[2017-09-15] MEDS: Atorvastatin* 10 MG TAB PO SCH (20:37)
[2017-09-15] MEDS: Gabapentin CAP(*) 300 MG PO SCH (20:37)
[2017-09-15] MEDS: oxyCODONE/Acetamin 5/325 MG* TAB PO PRN (20:38)
[2017-09-15] MEDS: Docusate CAP* 100 MG PO SCH (20:38)
[2017-09-15] MEDS: Heparin VIAL(*) 5000 UNITS/ML VIAL (FIVE THOUSAND) SUBCUT SCH (20:39)
--- NOTE | 2017-09-15 21:23 | CONS ---
CONSULTATION REPORT: DATE OF CONSULT: 09/15/17 CONSULTING PHYSICIAN: Dr. Alatorre and Dr. Agustin. REASON FOR CONSULT: Evaluate elevated inflammatory markers, evaluate for polymyalgia rheumatica. CHIEF COMPLAINT: Includes achiness and weakness, elevated inflammatory markers. HISTORY OF PRESENT ILLNESS: Mr. Felix is a 77-year-old patient with a longstanding history of hyperlipidemia as well as sacroiliac joint pain. He has been seen by a prior review coordinator Dr. Jeffers and was last seen by him on . At that time, he was felt to have degenerative disk disease, lumbar osteoarthritis and his C- reactive protein was normal at that time. He was encouraged to do low impact exercises and stretching and he was on ibuprofen at that time of 600 mg up to 3 times daily as needed. However, he noted a more recent onset of acute discomfort as well as not feeling well over the last month. He has been diffusely aching and he also had pain in his hips radiating down to his lower extremities. He has had a significant amount of pain despite pain medications and anti-inflammatory medication. He denied any fever or chills and he has denied any acute vision issues, but he notes that it has been hard to get the proper words in terms of his speech and he has also noted that he has achiness and stiffness which was worse in the morning, but proceeds throughout the day in his shoulders and upper back and neck region, so it is difficult to do any activity. He denies any jaw claudication. He denies any headaches. He has had no recent tick bites or infections and he denies any nausea or vomiting. His gait has been unsteady and he has been diffusely aching and feeling weak. He has been very tired, although he denies any chills. He denies any coughing or dysuria or frequency of urine. He has had no recent real changes in his medications, but he came to the emergency center given his significant disability that he has been having. As noted above, he has had increasing pain in both hips and difficulty getting down and up stairs and was noted that his sedimentation rate and C-reactive protein had been markedly elevated, which were much higher than they were in 2014. He was therefore admitted for this complaint as well as elevated inflammatory markers. 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 His past medical history also includes: 1. Hyperlipidemia. 2. Hypertension. 3. Benign prostatic hypertrophy. 4. Coronary artery disease. 5. Alcohol abuse. PAST SURGICAL HISTORY: Includes history of a hernia repair, left total hip replacement, left total knee replacement. He has also had open heart surgery. He has had heart catheterizations in the past. MEDICATIONS: Included at home: 1. Nasonex as needed 2 sprays for sinus problems. 2. Multivitamins. 3. Aspirin 325 mg daily. 4. Gabapentin 600 mg t.i.d. 5. ProAir 2 puffs inhaler every 4 hours as needed. 6. Toprol-XL 25 mg daily. 7. Lovastatin 40 mg at bedtime. 8. Flomax. 9. B12. 10. Vitamin D. 11. Vitamin C. 12. Tylenol. 13. Percocet as needed every 6 hours. 14. Hydrochlorothiazide. ALLERGIES TO MEDICATIONS: Include HYDROCODONE or an adverse reaction from this. FAMILY HISTORY: Notable with the mother with a history of liver cancer and father has a history of myocardial infarction, possibly osteoarthritis as well in the family. SOCIAL HISTORY: He is a former smoker, former heavy alcohol abuse. His last drink was 2 to 3 years ago. Surrogate decision maker is his brother. REVIEW OF SYSTEMS: General: He denied any acute fever or chills. He has had no other constitutional symptoms except for the progressive weakness and stiffness over the last few weeks. He denies any acute vision changes, but overall he feels like his body is shutting down and he has had difficulty mobilizing. He denied any rhinorrhea or sore throat. Endocrine: He denied any thyroid enlargement. Cardiac: Denied chest wall pain. Pulmonary: Denies shortness of breath or orthopnea. No nocturnal dyspnea. GI: Denies abdominal pain. Denies nausea. No vomiting. : Denies dysuria and no frequency. Neurologic: No seizure, but he has had diffuse weakness as noted above, but no loss of consciousness. He has had difficulty with a speech. Skin: No pruritus. No rash. No skin ulcerations. Other 14-point review of systems were reviewed and were otherwise negative. PHYSICAL EXAM: He is a pleasant 77-year-old male sitting up, in no acute distress. He was able to answer questions, but answered simple questions slowly. His blood pressure was initially 139/66, pulse of 84, respiratory rate of 18, O2 sat is 98%, temperature of 98.5. HEENT: Exam is normocephalic, atraumatic. Pupils equal, round, and reactive to light and accommodation. Extraocular movements were intact. Sclerae was anicteric, not pale. Throat: Oral mucosa appeared to be moist. No oropharyngeal erythema. Neck: Supple. Lymph: No adenopathy. Lungs were clear to auscultation bilaterally. No wheezes, rales, or rhonchi. Heart: Regular rate and rhythm. Normal S1 and S2. No murmurs, rubs, or gallops. Abdomen: Soft, nontender, nondistended. Minimal discomfort, but he had no tenderness in the quadrants. Bowel sounds were present. Extremities: Pulses were 2+ throughout. He was able to move all 4 extremities, but moved them slowly. He had a 4+/5 strength in the shoulders, biceps, and triceps and 4/4 strength in knee quads and plantar, flexors, and dorsiflexors. Pulses were 2+ in the upper and lower extremities. Neurologic: As noted above. He had muscle weakness as noted above. His speech was clear, but slow. His visual merchandising manager was equal. No facial drooping. He required assistance with just sitting up in bed and appeared to be debilitated and diffusely weak. Skin: Intact with no rash. DIAGNOSTIC STUDIES/LAB DATA: He had a white count of 11, RBC of 3.17, hemoglobin of 9.7, hematocrit 29, platelet count of 273,000. Sed rate of 86. Sodium of 132, potassium 4.2, chloride 98, BUN 15, creatinine 0.89, glucose of 109, lactic acid of 0.7, uric acid of 5.5, calcium of 9.5, alk phos of 60. CRP was elevated at 67 with an albumin of 3.5. Urinalysis showed trace ketones, 1+ blood. Venous Doppler showed no clot. In terms of his prior rheumatologic records on 05/11/17, he had an ultrasound of his abdomen, which showed diffuse calcific plaque, but no aneurysm. In November of 2015, he had an x-ray of his right hip showing status post left hip arthroplasty, osteoarthritis with peripheral arterial disease with no acute osseous injury. X-rays of the sacroiliac joints showed no plane abnormalities. This was on 01/22. In 2013, his hemoglobin was 12.6, HLA-B27 was negative. YAAKOV screen was negative. SWETA was negative and uric acid was 6.3 with rheumatoid factor of less than 15. CCP antibody of less than 15. Chest x-ray in 2015 showed no acute pulmonary findings. ASSESSMENT: Mr. Felix is a 77-year-old male with a history of increasing stiffness and subjective weakness as well as bilateral shoulder and hip discomfort. Given his age as well as markedly elevated inflammatory markers, my suspicion for polymyalgia rheumatica is high. He also has anemia and history of alcohol abuse and is at risk for vitamin deficiencies. I do wonder if some other neurologic process might be going on given his speech abnormalities, which would not be explained by the inflammatory state of polymyalgia rheumatica. His MRI of the brain was unremarkable. Therefore, if his symptoms continue despite prednisone, consider a Neurology evaluation. Would also if not already done, check a B12 and CPK level as well as thiamine levels. His workup for connective tissue disorder in 2013 was negative. At this time, he does have these symptoms of polymyalgia rheumatica that is significantly affected, I would suggest 40 mg of prednisone for the next 5 days and then taper by 10 mg every 5 days down to 20 mg daily depending on his clinical improvement. I will continue to follow, but I will not be available for through Wednesday due to being out of town, but I will be available by cell phone. Discussed at length with the patient his condition and we will continue to follow. Also consider a postinfectious reactive or paraneoplastic process and would also check Lyme serologies. [id number]/[facility] #: [id number] [facility] CENTERBrigitte
[2017-09-16] MEDS: oxyCODONE/Acetamin 5/325 MG* TAB PO PRN ×5 (04:42→21:03)
[2017-09-16] MEDS: Heparin VIAL(*) 5000 UNITS/ML VIAL (FIVE THOUSAND) SUBCUT SCH ×4 (04:44→22:57)
[2017-09-16 06:49] LABS: Hematocrit 26 % (42-52); Mean Corpuscular HGB Conc 35 g/dl (31-36); Mean Corpuscular Hemoglobin 31 pg (27-31); Mean Corpuscular Volume 90 fL (80-94); Mean Platelet Volume 8 um3 (7.4-10.4); Red Cell Distribution Width 12 % (10.5-15); White Blood Count 10.2 10^3/ul (3.5-10.8)
[2017-09-16 06:59] LABS: BUN/Creatinine Ratio 22.5 (8-20); Calcium 8.4 mg/dL (8.6-10.3); EGFR African American 138.7 (>60); EGFR Non-African American 107.9 (>60); Potassium 3.8 mmol/L (3.5-5.0)
[2017-09-16 07:14] LABS: TSH (Thyroid Stimulating Horm) 0.16 mcIU/mL (0.34-5.60)
--- NOTE | 2017-09-16 08:26 | ED ---
Conrad Zhao Angela, scribed for Bob Shin MD on 09/15/17 at 0959 . Lower Extremity - HPI Summary HPI Summary: This pt is a 77 y/o male presenting to [facility] via EMS for weakness and increased bilateral leg pain. EMS reports the pt has bilateral leg swelling as well. Pt also c/o difficulty urinating. He denies fever, abd pain, nausea, vomiting. Pt is not on Lasix. Per nurse's note, pt states that he has been trying to get placement in a senior nursing facility and has put his house up for sale. Pt also notes that he is tired of living in pain every day and has been praying to [place] [facility]. - History of Current Complaint Chief Complaint: EDGeneral Stated Complaint: POSSIBLE UTI Time Seen by Provider: 09/15/17 09:48 Hx Obtained From: Patient Mechanism Of Injury: Other - none Onset of Pain: Days Onset/Duration: Still Present Severity Currently: Moderate Pain Intensity: 5 Pain Scale Used: 0-10 Numeric Timing: Lasting Days Location: Is Discrete @ - bilateral legs Associated Signs And Symptoms: Positive: Swelling, Other - difficulty urinating. Negative: Abdominal Pain Able to Bear Weight: Yes - Allergies/Home Medications Allergies/Adverse Reactions: Allergies Allergy/AdvReac Type Severity Reaction Status Date / Time Hydrocodone AdvReac See Comment Verified 09/15/17 09:51 SEASONAL ALLERGIES Allergy Runny Nose Uncoded 09/15/17 09:51 Home Medications: Home Medications Acetaminophen [Acetaminophen Extra Stren] 500 mg PO Q6HR PRN 09/15/17 [History Confirmed 09/15/17] Aspirin TAB* [Aspirin 325 MG TAB*] 325 mg PO DAILY 09/15/17 [History Confirmed 09/15/17] Cholecalciferol [Vitamin D] 1,000 unit PO DAILY 09/15/17 [History Confirmed 03/27] Cyanocobalamin TAB* [Vitamin B12 TAB*] 2,500 mcg PO DAILY 09/15/17 [History Confirmed 09/15/17] Gabapentin TAB(NF) [Neurontin 600 mg TAB(NF)] 600 mg PO TID 09/15/17 [History Confirmed 09/15/17] Hydrochlorothiazide TAB* [Hydrodiuril TAB*] 25 mg PO DAILY 09/15/17 [History Confirmed 09/15/17] Mometasone NASAL (NF) [Nasonex (NF)] 2 spray BOTH NARES DAILY PRN 09/15/17 [ History Confirmed 09/15/17] PMH/Surg Hx/FS Hx/Imm Hx Endocrine/Hematology History: Reports: Hx Anemia - TAKING IRON TABLETS Denies: Hx Diabetes, Hx Sickle Cell Disease Cardiovascular History: Reports: Hx Coronary Artery Disease, Hx Hypercholesterolemia, Hx Hypertension - TREATED WITH MEDICATION, Hx Valvular Heart Disease Denies: Hx Pacemaker/ICD Respiratory History: Reports: Hx Chronic Obstructive Pulmonary Disease (COPD), Hx Seasonal Allergies, Other Respiratory Problems/Disorders - USES INHALER DAILY GI History: Reports: Hx Gastroesophageal Reflux Disease, Other GI Disorders - CONSTIPATION USES MIRALAX History: Reports: Hx Benign Prostatic Hyperplasia, Other Problems/ Disorders - BPH Denies: Hx Dialysis Musculoskeletal History: Reports: Hx Arthritis - HIPS AND LEGS Sensory History: Reports: Hx Contacts or Glasses Denies: Hx Hearing Aid Opthamlomology History: Reports: Hx Contacts or Glasses Neurological History: Denies: Hx Dementia, Hx Seizures, Other Neuro Impairments/Disorders Psychiatric History: Denies: Hx Anxiety, Hx Attention Deficit Hyperactivity Disorder, Hx Eating Disorder, Hx Depression, Hx Panic Disorder, Hx Post Traumatic Stress Disorder, Hx Inpatient Treatment, Hx Community Mental Health Tx, Hx Schizophrenia, Hx Bipolar Disorder, Hx Suicide Attempt, Hx of Violent Episodes Against Others, Hx Substance Abuse, Other Psychiatric Issues/Disorders - Surgical History Surgery Procedure, Year, and Place: [place]ERNIA SURG[place] 04[place] [facility] [place], RIGHT KNEE 2001, LT HIP REPLACEMENT 2012, RT KNEE REPLACEMENT 06/23, Hx Anesthesia Reactions: No - Immunization History Date of Tetanus Vaccine: Unk Date of Influenza Vaccine: Fall 2014 Infectious Disease History: No Infectious Disease History: Denies: Hx Clostridium Difficile, Hx Hepatitis, Hx Human Immunodeficiency Virus (HIV), Hx Shingles, Hx Tuberculosis, Traveled Outside the [place] in Last 30 Days - Family History Known Family History: Positive: Other - Mother: liver CA. Father: history of [place]. Negative: Seizure Disorder - Social History Alcohol Use: None Alcohol Amount: glass of wine with dinner Substance Use Type: Reports: Prescribed Smoking Status (MU): Former Smoker Type: Cigarettes Review of Systems Negative: Fever, Chills Eyes: Negative ENT: Negative Cardiovascular: Negative Negative: Abdominal Pain, Vomiting, Nausea Genitourinary: Other - difficulty urinating Musculoskeletal: Other - bilateral LE pain Positive: Edema - in bilateral LE Skin: Negative Positive: Weakness - generalized All Other Systems Reviewed And Are Negative: Yes Physical Exam - Summary Physical Exam Summary: VITAL SIGNS: Reviewed. GENERAL: Patient is an elderly fragile male who is lying comfortable in the stretcher. Patient is not in any acute respiratory distress. HEAD AND FACE: No signs of trauma. No ecchymosis, hematomas or skull depressions. No sinus tenderness. EYES: PERRLA, EOMI x 2, No injected conjunctiva, no nystagmus. EARS: Hearing grossly intact. Ear canals and tympanic membranes are within normal limits. MOUTH: Oropharynx within normal limits. NECK: Supple, trachea is midline, no adenopathy, no JVD, no carotid bruit, no c- spine tenderness, neck with full ROM. CHEST: Symmetric, no tenderness at palpation LUNGS: Clear to auscultation bilaterally. No wheezing or crackles. CVS: Regular rate and rhythm, S1 and S2 present, no murmurs or gallops appreciated. ABDOMEN: Soft, non-tender. No signs of distention. No rebound no guarding, and no masses palpated. Bowel sounds are normal. EXTREMITIES: FROM in all major joints, no cyanosis or clubbing. Bilateral lower extremity edema, right>left, 1+. Some erythema in the bilateral lower extremity. NEURO: Alert and oriented x 3. No acute neurological deficits. Speech is normal and follows commands. SKIN: Dry skin and warm. Pt seems a bit dehydrated. Triage Information Reviewed: Yes Vital Signs On Initial Exam: Initial Vitals Temp Pulse Resp BP Pulse Ox 98.5 F 78 16 168/54 96 09/15/17 09:48 09/15/17 09:48 09/15/17 09:48 09/15/17 09:48 09/15/17 09:48 Vital Signs Reviewed: Yes - Winsome Coma Scale Coma Scale Total: 15 Diagnostics - Vital Signs Vital Signs Temp Pulse Resp BP Pulse Ox 09/15/17 09:49 75 15 97 09/15/17 09:48 98.5 F 78 16 168/54 96 - Laboratory Result Diagrams: 09/15/17 10:00 09/15/17 10:00 Lab Statement: Any lab studies that have been ordered have been reviewed, and results considered in the medical decision making process. - Additional Comments Diagnostic Additional Comments: Venous Doppler Study, Bilateral, as read per radiologist: IMPRESSION: No right lower extremity deep vein thrombosis. No left lower extremity deep vein thrombosis. ED physician has reviewed this radiology report and agrees. Re-Evaluation - Re-Evaluation First Eval Re-Evaluation Time: 13:06 Comment: I reviewed the Venoud doppler study results with the pt. Lower Extremity Course/Dx - Course Assessment/Plan: This pt is a 77 y/o male presenting to [facility] via EMS for weakness and increased bilateral leg pain. EMS reports the pt has bilateral leg swelling as well. Pt also c/o difficulty urinating. He denies fever, abd pain, nausea, vomiting. Pt is not on Lasix. Per nurse's note, pt states that he has been trying to get placement in a senior nursing facility and has put his house up for sale. Pt also notes that he is tired of living in pain every day and has been praying to [place] [facility]. Test result without any significant abnormalities except for WBC of 11, slight chronic anemia, CRP of 67.5. Influenza A and B are negative. Urinalysis shows trace of ketones and blood. US of bilateral lower extremity shows no right lower extremity deep vein thrombosis. No left lower extremity deep vein thrombosis. The pt is unable to ambulate and therefore the pt is an unsafe discharge. Pt is alert and oriented x3, except he is unable to ambulate and unable to care for himself. Therefore I discussed the pts case with Dr. Agustin for further care and management. Pt is hemodynamically stable, alert and oriented x3. - Diagnoses Provider Diagnoses: Weakness, unsafe discharge, unable to care for himself - Physician Notifications Discussed Care Of Patient With: Angelita Agustin Time Discussed With Above Provider: 13:22 Instructed by Provider To: Other - I discussed the pt's case with Dr. Agustin, who accepted the pt for admission. Discharge - Discharge Plan Condition: Stable Disposition: ADMITTED TO [facility] documentation as recorded by the Conrad mercer Angela accurately reflects the service I personally performed and the decisions made by me, Bob Shin MD.
[2017-09-16] MEDS: Metoprolol Succinate XL TAB* 25 MG PO SCH (10:16)
[2017-09-16] MEDS: Gabapentin CAP(*) 300 MG PO SCH ×3 (10:16→21:03)
[2017-09-16] MEDS: Aspirin TAB* 325 MG PO SCH (10:16)
[2017-09-16] MEDS: Tamsulosin CAP* 0.4 MG PO SCH (10:17)
[2017-09-16] MEDS: predniSONE TAB* 20 MG PO SCH (10:17)
[2017-09-16] MEDS: Docusate CAP* 100 MG PO SCH ×2 (10:17→21:03)
[2017-09-16] MEDS: Multivitamins/Minerals TAB PO SCH (10:17)
--- NOTE | 2017-09-16 10:39 | PN ---
Subjective Date of Service: 09/16/17 Interval History: Mr. Felix states that he feels that he has a little more energy today but he is overall feeling about the same. He reports to me that the pain in his hips is chronic and unchanged from baseline. He states that he came to the hospital because, "I just couldn't take it anymore." He explains that he has only left the house to berry picker his prescriptions for pain meds since his last admission here back in June. He has missed all doctor appointments. He reports being able to ambulate but that he has significant pain and unsteadiness and he is very afraid of falling. He denies any complaint of fever or cough. He has had no chest pain, SOB, nausea, or abdominal pain. Objective Active Medications: Acetaminophen (Tylenol Tab*) 650 mg PO Q4H PRN Albuterol (Ventolin Hfa Inhaler*) 2 puff INH Q4HR PRN Aspirin (Aspirin Tab*) 325 mg PO DAILY [facility] Atorvastatin Calcium (Lipitor*) 40 mg PO BEDTIME [facility] Docusate Sodium (Colace Cap*) 100 mg PO BID [facility] Gabapentin (Neurontin Cap(*)) 600 mg PO TID [facility] Heparin Sodium (Porcine) (Heparin Vial(*)) 5,000 units SUBCUT Q8HR [facility] Sodium Chloride (Ns 0.9% 1000 Ml*) 1,000 mls @ 100 mls/hr IV PER RATE [facility] Magnesium Hydroxide (Milk Of Magnanya Liq*) 30 ml PO Q6H PRN Metoprolol Succinate (Toprol Xl Tab*) 25 mg PO DAILY [facility] Multivitamins/Minerals (Theragran/Minerals Tab*) 1 tab PO DAILY [facility] Ondansetron HCl (Zofran Inj*) 4 mg IV Q6H PRN Oxycodone/Acetaminophen (Percocet 5/325 Tab*) 1 tab PO Q4H PRN Prednisone (Deltasone Tab*) 40 mg PO DAILY [facility] Tamsulosin HCl (Flomax Cap*) 0.4 mg PO DAILY [facility] Vital Signs: Temp Pulse Resp BP Pulse Ox 98.2 F 67 18 147/38 98 09/16/17 08:19 09/16/17 08:19 09/16/17 10:16 09/16/17 08:19 09/16/17 08:19 Oxygen Devices in Use Now: None, Nasal Cannula Appearance: Male sitting up in chair in NAD Eyes: No Scleral Icterus Ears/Nose/Mouth/Throat: Mucous Membranes Moist Neck: Trachea Midline Respiratory: Symmetrical Chest Expansion and Respiratory Effort, - - Scant rhonchi to right base, clear otherwise with good aeration Cardiovascular: NL Sounds; No Murmurs; No JVD Abdominal: NL Sounds; No Tenderness; No Distention Extremities: - - +1 edema to LEs. Skin: No Rash or Ulcers Neurological: Alert and Oriented x 3, NL Muscle Strength and Tone Nutrition: Taking PO's Result Diagrams: 09/16/17 06:24 09/16/17 06:24 Assess/Plan/Problems-Billing Assessment: Mr. Felix is a 77 yo male with a PMH of CAD, HTN, and chronic pain who was admitted on 09/15/17 with bilateral hip pain and elevated ESR/CRP with concern for polymyalgia rheumatica with finding of new right lower lobe lung mass, now with suspicion for pneumonia. - Patient Problems (1) Hip pain Comment: - Patient has a history of chronic pain with sacroiliac joint pain, lumbar osteoarthritis, and degenerative disk disease. - With elevated ESR/CRP, concern for polymyalgia rheumatica. - Appreciate consultation from Dr. Frias, continue prednisone. (2) Lung mass Comment: - R LL lung mass noted on CT abd, more likely infectious process than malignancy based on morphology. - Plan for levaquin x 7 days and then repeat imaging in 6 weeks. - Patient does have a history of smoking, location near diaphragm makes biopsy difficult. - Reviewed case with Dr. De Souza, patient to follow up with her outpatient. (3) Elevated C-reactive protein (CRP) Comment: - ? if pneumonia explains elevated ESR and CRP rather than polymyalgia rheumatica. - Plan to trend CRP/ESR. (4) Hyponatremia Comment: - Resolved. (5) Urinary frequency Comment: - Continue flomax. (6) DVT prophylaxis Comment: - Hep SQ Status and Disposition: Inpatient. Anticipate discharge to SNF as patient is unsteady on his feet with bilateral hip and back pain. kettle hand following.
[2017-09-16] MEDS: Levofloxacin TAB* 750 MG PO SCH (12:12)
[2017-09-16 13:32] LABS: Rheumatoid Factor <15 IU/mL (<15)
[2017-09-16] MEDS: Atorvastatin* 10 MG TAB PO SCH (21:03)
[2017-09-17] MEDS: Heparin VIAL(*) 5000 UNITS/ML VIAL (FIVE THOUSAND) SUBCUT SCH ×2 (06:18→13:44)
[2017-09-17] MEDS ORDERED: Influenza VAC *QUAD* 2017-18* 0.5 ML SYRINGE IM ONE (09:00)
[2017-09-17] MEDS ORDERED: Pneumococcal *Vac Polyvalent 0.5 ML VIAL IM ONE (09:00)
[2017-09-17] MEDS ORDERED: predniSONE TAB* 20 MG PO SCH (09:00)
[2017-09-17] MEDS: Aspirin TAB* 325 MG PO SCH (10:12)
[2017-09-17] MEDS: oxyCODONE/Acetamin 5/325 MG* TAB PO PRN (10:12)
[2017-09-17] MEDS: Metoprolol Succinate XL TAB* 25 MG PO SCH (10:12)
--- NOTE | 2017-09-17 10:12 | PN ---
Subjective Date of Service: 09/17/17 Interval History: Mr. Felix continues to state that he cannot walk though he has been observed walking in the hallway. On further questioning, he reports that the pain and instability limit his mobility to the point where he feels that he can no longer take care of himself at home. He states that the pain is in both of his hips and has been chronic and unchanged in severity. He states that he came to the hospital simply because he could no longer care for himself due to pain, limited mobility, intermittent episodes of confusion. He denies other complaint today including chest pain, SOB, nausea, or abdominal pain. Objective Active Medications: Acetaminophen (Tylenol Tab*) 650 mg PO Q4H PRN Albuterol (Ventolin Hfa Inhaler*) 2 puff INH Q4HR PRN Aspirin (Aspirin Tab*) 325 mg PO DAILY [facility] Atorvastatin Calcium (Lipitor*) 40 mg PO BEDTIME [facility] Docusate Sodium (Colace Cap*) 100 mg PO BID [facility] Gabapentin (Neurontin Cap(*)) 600 mg PO TID [facility] Heparin Sodium (Porcine) (Heparin Vial(*)) 5,000 units SUBCUT Q8H [facility] Sodium Chloride (Ns 0.9% 1000 Ml*) 1,000 mls @ 100 mls/hr IV PER RATE [facility] Levofloxacin (Levaquin Tab*) 750 mg PO DAILY [facility] Magnesium Hydroxide (Milk Of Magnesia Liq*) 30 ml PO Q6H PRN Metoprolol Succinate (Toprol Xl Tab*) 25 mg PO DAILY [facility] Multivitamins/Minerals (Theragran/Minerals Tab*) 1 tab PO DAILY [facility] Oxycodone/Acetaminophen (Percocet 5/325 Tab*) 1 tab PO Q4H PRN Prednisone (Deltasone Tab*) 40 mg PO DAILY [facility] Tamsulosin HCl (Flomax Cap*) 0.4 mg PO DAILY [facility] Vital Signs - 8 hr 09/17/17 03:07 Temperature 98.1 F Pulse Rate 67 Respiratory 16 Rate Blood Pressure 144/43 (mmHg) O2 Sat by Pulse 97 Oximetry Oxygen Devices in Use Now: None Appearance: Male lying in bed in NAD Eyes: No Scleral Icterus Ears/Nose/Mouth/Throat: Mucous Membranes Moist Neck: Trachea Midline Respiratory: Symmetrical Chest Expansion and Respiratory Effort, Clear to Auscultation Cardiovascular: NL Sounds; No Murmurs; No JVD, No Edema Abdominal: NL Sounds; No Tenderness; No Distention Lymphatic: No Cervical Adenopathy Extremities: No Edema Skin: No Rash or Ulcers Neurological: Alert and Oriented x 3, NL Muscle Strength and Tone Nutrition: Taking PO's Result Diagrams: 09/16/17 06:24 09/16/17 06:24 Assess/Plan/Problems-Billing Assessment: Mr. Felix is a 77 yo male with a PMH of CAD, HTN, and chronic pain who was admitted on 09/15/17 with bilateral hip pain and elevated ESR/CRP with concern for polymyalgia rheumatica with finding of new right lower lobe lung mass, now with suspicion for pneumonia. - Patient Problems (1) Hip pain Comment: - Patient has a history of chronic pain with sacroiliac joint pain, lumbar osteoarthritis, and degenerative disk disease. - With elevated ESR/CRP, concern for polymyalgia rheumatica, however after thorough review of patient's chart both in [facility] and [facility] as well as conversations with patient, he is clear that his hip pain is unchanged from baseline. - Plan to discontinue prednisone. (2) Lung mass Comment: - R LL lung mass noted on CT abd, more likely infectious process than malignancy based on morphology. - Plan for levaquin x 7 days and then repeat imaging in 6 weeks. - Patient does have a history of smoking, location near diaphragm makes biopsy difficult. - Reviewed case with Dr. De Souza, patient to follow up with her outpatient. (3) Elevated C-reactive protein (CRP) Comment: - Likely that pneumonia explains elevated ESR and CRP rather than polymyalgia rheumatica. - Plan to trend CRP/ESR and repeat lung imaging in 6 weeks. Further follow up based on clinical course. (4) Hypertension Comment: - SBP 120-150s. - Hctz held due to hyponatremia. Continue metoprolol. Add low dose ACEI given hx of MO and CAD. (5) CAD (coronary artery disease) Comment: - Asymptomatic. - Continue aspirin, metoprolol, and added lisinopril. (6) Hyponatremia Comment: - Resolved, hctz held. (7) Urinary frequency Comment: - Continue flomax. (8) DVT prophylaxis Comment: - Hep SQ (9) DNR (do not resuscitate) Comment: - MOLST completed. Status and Disposition: Inpatient. Anticipate discharge to SNF as patient is unsteady on his feet with bilateral hip and back pain. ladle watcher following.
[2017-09-17] MEDS: Tamsulosin CAP* 0.4 MG PO SCH (10:13)
[2017-09-17] MEDS: Gabapentin CAP(*) 300 MG PO SCH ×2 (10:13→13:44)
[2017-09-17] MEDS: Multivitamins/Minerals TAB PO SCH (10:13)
[2017-09-17] MEDS: Levofloxacin TAB* 750 MG PO SCH (10:13)
[2017-09-17] MEDS: Docusate CAP* 100 MG PO SCH (10:13)
[2017-09-17 10:26] VITALS: BP 168/47
[2017-09-17] MEDS ORDERED: Lisinopril TAB* 5 MG PO SCH (11:00)
--- NOTE | 2017-09-17 14:45 | DS ---
CC: Dr. Grimaldo * DATE OF ADMISSION: 09/15/2017. DATE OF DISCHARGE: 09/17/2017. ATTENDING PHYSICIAN: Dr. Sofie Flores * (dictation provided by Candy Mcmahon NP ). PRIMARY DIAGNOSIS: Pneumonia. SECONDARY DIAGNOSES: 1. Chronic hip pain. 2. Hyperlipidemia. 3. Hypertension. 4. BPH. 5. 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 6. ETOH abuse, resolved. MEDICATIONS AT THE TIME OF DISCHARGE: 1. Mometasone two sprays both nares daily prn. 2. Aspirin 325 mg p.o. daily. 3. Multivitamin with mineral one tab p.o. daily. 4. Gabapentin 600 mg p.o. t.i.d. 5. Albuterol inhaler two puffs inhaled q.4 hours prn. 6. Metoprolol Succinate 25 mg p.o. daily. 7. Lovastatin 40 mg p.o. at bedtime. 8. Tamsulosin 0.4 mg p.o. daily. 9. Cyanocobalamin 2500 mcg p.o. daily. 10. Cholecalciferol 1000 units p.o. daily. 11. Ascorbic acid 1000 mg p.o. daily. 12. Acetaminophen 500 mg p.o. q.6 hours prn. 13. Oxycodone with acetaminophen two tabs p.o. q.6 hours prn. 14. Lisinopril 2.5 mg p.o. daily (new medication). 15. Levaquin 750 mg p.o. daily (times 5 days). 16. Docusate 100 mg p.o. b.i.d. HOSPITAL COURSE: Mr. Felix is a 77-year-old male with a past medical history of hypertension, coronary artery disease with AR, and chronic hip and back pain who presented to the hospital on 09/15/2017 with report of aching and weakness. Please see the dictated history and physical from William Alatorre NP for complete details. In brief, the patient reported at the time that he had not felt well for about the past month. He reported he was having difficulty caring for himself at home and limited mobility. In the ED it was found that he had an elevated ESR and CRP at 86 and 67.58 respectively. Mr. Felix was admitted to the hospital based on his complaint of hip pain, which seemed at the time to be new or at least worsened, and his elevated ESR and CRP. There was concern that perhaps he had polymyalgia rheumatica. He was seen in consultation by Dr. Frias who suggested that a Prednisone trial be initiated which was done. The meantime, results from patient's CT abdomen and pelvis were reviewed and they showed that the patient had an incidental finding of a mass in the right lower lobe of the lung field measuring 4.3 x 3.0 cm. There were no other acute findings. Mr. Felix is again questioned at length about the presence of fever, cough or any other suggestion of pneumonia which he denied. Review was made of previous imaging and it was noted that the patient had a low dose lung CT on 05/11/2017 that showed no evidence of this mass in the base. This was reviewed with Dr. De Souza and Dr. Potter from Radiology. It was felt that based on the morphology, the location and the lack of any finding back in May, that this was not likely to be a malignancy and perhaps reflected a pneumonia, especially given his elevated ESR and CRP. Plans were made to treat the patient for a full seven day course of antibiotics and then for repeat CT imaging to ensure resolution of pneumonia in six weeks. Based on the presence of this pneumonia that seemed to offer better explanation for the ESR and CRP, I have discontinued Prednisone. I have spoken at length with Mr. Felix on multiple occasions and he reports that the pain he experiences in his hip and back is exactly the same as it has been. He reports no exacerbation of this pain. He reports that he is not able to ambulate, but he has been able to do so in the hospital. He feels limited, however, by instability and pain. Mr. Felix feels that he is no longer able to care for himself at home due to his chronic pain, limited mobility and intermittent episodes of confusion, and he no longer feels safe and has opted for a transition to [facility] facility. Mr. Felix is medically stable for discharge to [facility] today. The only other changes to his medications have been the discontinuation of Hydrochlorothiazide which he was on on arrival due to hyponatremia and the starting of a low dose Lisinopril. DISPOSITION: To [facility]. DIET: Regular. ACTIVITY: As tolerated. FOLLOW-UP PLANS: 1. Please follow-up with the providers at [facility] per routine. 2. Please follow-up with ESR and CRP on or about 09/27/2017 to ensure resolution of this lab abnormality. 3. Please follow-up with CT of the chest in approximately six weeks to ensure resolution of pneumonia. Approximately 60 minutes were spent in the discharge of this patient, more than half that time was spent with the patient at the bedside reviewing the events leading up to this hospitalization, performing the physical examination and reviewing my plan of care. CANDY MCMAHON NP [id number]/CPS #: [id number] LANCE
== END 2017-09-17 15:15 | DRG 194 ==
LOC: ED 09:37 → MED 16:02 → OBSVTOIN 09-16 14:00
PROVIDERS: ADMIT Internal Medicine; ATTEND Hospitalist
DX: J18.9 Pneumonia, unspecified organism (principal); E87.1 Hypo-osmolality and hyponatremia; I11.9 Hypertensive heart disease without heart failure; M25.559 Pain in unspecified hip; E78.5 Hyperlipidemia, unspecified; I25.10 Atherosclerotic heart disease of native coronary artery without angina pectoris; Z95.1 Presence of aortocoronary bypass graft; I25.2 Old myocardial infarction; N40.0 Benign prostatic hyperplasia without lower urinary tract symptoms; M54.9 Dorsalgia, unspecified; F10.21 Alcohol dependence, in remission; Z96.642 Presence of left artificial hip joint; Z96.652 Presence of left artificial knee joint; Z79.1 Long term (current) use of non-steroidal anti-inflammatories (NSAID); Z79.82 Long term (current) use of aspirin; Z79.899 Other long term (current) drug therapy; Z88.6 Allergy status to analgesic agent; Z80.0 Family history of malignant neoplasm of digestive organs; Z82.49 Family history of ischemic heart disease and other diseases of the circulatory system; Z87.891 Personal history of nicotine dependence; R35.0 Frequency of micturition; Z66 Do not resuscitate
CPT/HCPCS: 36415; 70551; 74177; 80048; 80053; 81003; 81015; 82550; 82607; 83605; 84443; 84550; 85025; 85652; 86038; 86140; 86200; 86235; 86431; 86618; 87040; 87502; 90686; 93970; A9270-GY; G0378; G8978-GP-CH; G8979-GP-CH; G8980-GP-CH; G8987-GO-CJ; G8988-GO-CI; J1644; J7512; Q9967

== ENCOUNTER 2018-02-25 11:02 | Observation (INO) | payer MEDICARE ==
--- NOTE | 2018-02-25 15:29 | RAD ---
INDICATION: Weakness COMPARISON: June 11, 2017 TECHNIQUE: PA and lateral dual-energy views were obtained. FINDINGS: Bones/Soft Tissues: There are no acute bony findings. There is sternotomy/CABG Cardiomediastinal: The cardiomediastinal silhouette is normal. Lungs: There are no infiltrates. Pleura: There are no pleural effusions. Other: None IMPRESSION: POSTOPERATIVE CHANGE. NO ACTIVE DISEASE.
[2018-02-25 15:30] LABS: Hematocrit 28 % (42-52); Hemoglobin 9.7 g/dl (14.0-18.0); Mean Corpuscular HGB Conc 35 g/dl (31-36); Mean Corpuscular Hemoglobin 32 pg (27-31); Mean Corpuscular Volume 93 fL (80-94); Platelet Count 173 10^3/ul (150-450); Red Blood Count 3.01 10^6/ul (4.0-5.4); Red Cell Distribution Width 13 % (10.5-15)
[2018-02-25 15:39] LABS: INR 0.94 (0.77-1.02)
[2018-02-25 15:47] LABS: EGFR Non-African American 40.5 (>60)
[2018-02-25] MEDS ORDERED: Albuterol HFA INHALER* 8 gm MDI INH PRN (18:36)
[2018-02-25] MEDS ORDERED: Fluticasone NASAL SPRAY 50MCG* 16 gm SPRAY BTL BOTH NARES PRN (18:36)
--- NOTE | 2018-02-25 18:52 | ED ---
Alejandro Zhao Jennifer, scribed for Jose Mohan MD on 02/25/18 at 1345 . Complex/Multi-Sys Presentation - HPI Summary HPI Summary: The patient is a 77 year old male sent by his PCP after getting bloodwork done yesterday. The patient complains of weakness and a decreased ability to walk. He denies black bowel movement, chest pain, SOB, and any falls. - History Of Current Complaint Chief Complaint: EDExtremityLower Time Seen by Provider: 02/25/18 13:35 Hx Obtained From: Patient Onset/Duration: Sudden Onset, Lasting Days - one day, Still Present Timing: Constant Severity Currently: Mild Severity Initially: Mild Associated Signs And Symptoms: Positive: Other - weakness, decreased ambulation. NEGATIVE: black bowels, chest pain, SOB, falls - Allergies/Home Medications Allergies/Adverse Reactions: Allergies Allergy/AdvReac Type Severity Reaction Status Date / Time hydrocodone AdvReac See Comment Verified 02/25/18 13:48 SEASONAL ALLERGIES Allergy Runny Nose Uncoded 02/25/18 11:06 Home Medications: Home Medications Albuterol HFA INHALER* [Ventolin HFA Inhaler*] 2 puff INH Q4H PRN 02/25/18 [ History Confirmed 02/25/18] Cholecalciferol TAB* [Vitamin D TAB*] 1,000 unit PO DAILY 02/25/18 [History Confirmed 02/25/18] Gabapentin CAP(*) [Neurontin 300 CAP(*)] 900 mg PO TID 02/25/18 [History Confirmed 02/25/18] Naproxen TAB* [Naprosyn 375 mg TAB*] 375 mg PO BID 02/25/18 [History Confirmed 02/25/18] PMH/Surg Hx/FS Hx/Imm Hx Endocrine/Hematology History: Reports: Hx Anemia - TAKING IRON TABLETS Denies: Hx Diabetes, Hx Sickle Cell Disease Cardiovascular History: Reports: Hx Coronary Artery Disease, Hx Hypercholesterolemia, Hx Hypertension, Hx Valvular Heart Disease Denies: Hx Pacemaker/ICD Respiratory History: Reports: Hx Chronic Obstructive Pulmonary Disease (COPD), Hx Seasonal Allergies, Other Respiratory Problems/Disorders - USES INHALER DAILY GI History: Reports: Hx Gastroesophageal Reflux Disease, Other GI Disorders - CONSTIPATION USES MIRALAX History: Reports: Hx Benign Prostatic Hyperplasia, Other Problems/ Disorders - BPH Denies: Hx Dialysis Musculoskeletal History: Reports: Hx Arthritis - HIPS AND LEGS Sensory History: Reports: Hx Contacts or Glasses Denies: Hx Hearing Aid Opthamlomology History: Reports: Hx Contacts or Glasses Neurological History: Denies: Hx Dementia, Hx Seizures, Other Neuro Impairments/Disorders Psychiatric History: Denies: Hx Anxiety, Hx Attention Deficit Hyperactivity Disorder, Hx Eating Disorder, Hx Depression, Hx Panic Disorder, Hx Post Traumatic Stress Disorder, Hx Inpatient Treatment, Hx Community Mental Health Tx, Hx Schizophrenia, Hx Bipolar Disorder, Hx Suicide Attempt, Hx of Violent Episodes Against Others, Hx Substance Abuse, Other Psychiatric Issues/Disorders - Surgical History Surgery Procedure, Year, and Place: HERNIA SURGERY 04/2013 [facility] 2011, RIGHT KNEE 2001, LT HIP REPLACEMENT 2012, RT KNEE REPLACEMENT 06/23, Hx Anesthesia Reactions: No - Immunization History Date of Tetanus Vaccine: Unk Date of Influenza Vaccine: Fall 2014 Infectious Disease History: No Infectious Disease History: Denies: Hx Clostridium Difficile, Hx Hepatitis, Hx Human Immunodeficiency Virus (HIV), Hx Shingles, Hx Tuberculosis, Traveled Outside the [place] in Last 30 Days - Family History Known Family History: Positive: Other - Mother: liver CA. Father: history of AL. Negative: Seizure Disorder - Social History Alcohol Use: None Alcohol Amount: glass of wine with dinner Substance Use Type: Reports: Prescribed Smoking Status (MU): Former Smoker Type: Cigarettes Review of Systems Negative: Fever, Chills Negative: Erythema Negative: Sore Throat Negative: Chest Pain Negative: Shortness Of Breath, Cough Negative: Abdominal Pain, Vomiting, Nausea Negative: dysuria, hematuria Negative: Myalgia, Edema Negative: Rash Neurological: Negative - Dizziness, Other - Dec ability to walk Positive: Weakness All Other Systems Reviewed And Are Negative: Yes Physical Exam - Summary Physical Exam Summary: Constitutional: Well-developed, Well-nourished, Alert. (-) Distressed Skin: Warm, Dry HENT: Normocephalic; Atraumatic Eyes: Conjunctiva normal Neck: Musculoskeletal ROM normal neck. (-) JVD, (-) Stridor, (-) Tracheal deviation Cardio: Rhythm regular, rate normal, Heart sounds normal; Intact distal pulses; The pedal pulses are 2+ and symmetric. Radial pulses are 2+ and symmetric. (-) Murmur Pulmonary/Chest wall: Effort normal. (-) Respiratory distress, (-) Wheezes, (-) Rales Abd: Soft, (-) Tenderness, (-) Distension, (-) Guarding, (-) Rebound Rectal: maroon colored stool Musculoskeletal: 1+ pitting edema bilateral lower extremities. Lymph: (-) Cervical adenopathy Neuro: Alert, Oriented x3 Psych: Mood and affect Normal Triage Information Reviewed: Yes Vital Signs On Initial Exam: Initial Vitals Temp Pulse Resp BP Pulse Ox 97.7 F 58 14 142/45 96 02/25/18 11:06 02/25/18 11:06 02/25/18 11:06 02/25/18 11:06 02/25/18 11:06 Vital Signs Reviewed: Yes Diagnostics - Vital Signs Vital Signs Temp Pulse Resp BP Pulse Ox 02/25/18 13:00 97.3 F 64 16 172/59 02/25/18 11:06 97.7 F 58 14 142/45 96 - Laboratory Result Diagrams: 02/25/18 15:22 02/25/18 15:22 Lab Statement: Any lab studies that have been ordered have been reviewed, and results considered in the medical decision making process. - Radiology CXR Xray Interpretation: No Acute Changes - POSTOPERATIVE CHANGE. NO ACTIVE DISEASE. Dr. Mohan has reviewed this report. Radiology Interpretation Completed By: Radiologist - EKG 1356 Cardiac Rate: NL EKG Rhythm: Sinus Rhythm - 73 BPM EKG Interpretation: no STEMI Complex Multi-Symp Course/Dx Course Of Treatment: The patient is a 77 year old male sent by his PCP after getting bloodwork done yesterday. His PCP did labwork in their office yesterday and saw significant hyponaetremia, which is new to him. The patient is newly anemic. He was advised to come to the ED. Bloodwork and Urinalysis obtained. CXR , EKG obtained. The patient updated me that he actually is not currently taking diuretics. His hyponaetremia improved somewhat, but he is still symptomatic. The patient is diagnosed with hyponaetremia, anemia, and weakness. Dr. Canseco admitted him to the hospital. - Diagnoses Differential Diagnoses/HQI/PQRI: Other - Hyponaetremia secondary to diuretics Provider Diagnoses: Hyponatremia, Anemia, Weakness - Physician Notifications Discussed Care Of Patient With: Pedro Grimaldo Time Discussed With Above Provider: 13:42 Instructed by Provider To: Admit As Inpatient - Dr. Grimaldo's office did labs on the patient yesterday which showed significant hyponaetremia, which is new for him, and he is also newly anemic. The patient was advised to go to the ER yesterday but he was too busy. I also discussed the patient with Dr. Canseco, hospitalist, who admitted the patient. Discharge - Sign-Out/Discharge Documenting (check all that apply): Discharge/Admit/Transfer - Discharge Plan Condition: Fair Disposition: ADMITTED TO [facility] Referrals: Pedro Grimaldo MD [Primary Care Provider] - The documentation as recorded by the Alejandro mercer Jennifer accurately reflects the service I personally performed and the decisions made by me, Jose Mohan MD.
[2018-02-25] MEDS ORDERED: Naproxen TAB* 375 MG PO SCH (21:00)
[2018-02-25] MEDS ORDERED: Atorvastatin* 10 MG TAB PO SCH (21:00)
[2018-02-25] MEDS ORDERED: oxyCODONE/Acetamin 5/325 MG* TAB PO PRN (22:16)
[2018-02-25] MEDS: NS 0.9% 1000 ML* 1,000 ML IV SCH (22:17)
[2018-02-25] MEDS ORDERED: Acetaminophen TAB* 325 MG PO PRN (22:47)
[2018-02-25] MEDS ORDERED: oxyCODONE TAB* 5 MG TAB PO PRN (22:49)
[2018-02-25] MEDS: Gabapentin CAP(*) 300 MG PO SCH (23:05)
[2018-02-25] MEDS: Heparin VIAL(*) 5000 UNITS/ML VIAL (FIVE THOUSAND) SUBCUT SCH (23:05)
[2018-02-25] MEDS: Docusate CAP* 100 MG PO SCH (23:05)
[2018-02-26 02:42] LABS: Urine Appearance Clear; Urine Blood Negative (Negative); Urine Color Straw; Urine Ketones Negative (Negative); Urine Protein Negative (Negative); Urine Specific Gravity 1.009 (1.010-1.030); Urine Urobilinogen Negative (Negative)
--- NOTE | 2018-02-26 03:19 | HP ---
CC: Dr. Pedro Grimaldo * HISTORY AND PHYSICAL: DATE OF ADMISSION: 02/25/18 PRIMARY CARE PROVIDER: Dr. Pedro Grimaldo ATTENDING PHYSICIAN: Angelita Agustin MD * (dictated by Kassandra Gonzalez NP) CHIEF COMPLAINT: Asked to come to the emergency room per his primary care provider for abnormal labs. HISTORY OF PRESENT ILLNESS: Mr. Felix is a 77-year-old male with past medical history significant for hyperlipidemia, hypertension, BPH, coronary artery disease, alcohol abuse, and chronic pain who states that he has been in his usual state of health with the exception of frequent urination, not really drinking much fluids, but eating okay, generalized weakness for a while. The patient states that he had labs and his primary care provider told him to come to the emergency room because he had serious blood problems. On labs from 02/23, two days prior, the patient was noted to have a sodium of 121, hemoglobin of 9.0, hematocrit of 26. The patient states that he has recently developed bilateral lower extremity edema with the right lower extremity worse than the left. The patient states that he has had no fevers, chills, chest pain, shortness of breath, nausea, vomiting, diarrhea. He is able to ambulate with his walker. While in the emergency room, the patient had repeat labs showing a hemoglobin of 9.7, hematocrit of 28, a sodium of 126. His creatinine is slightly elevated at 1.66, above his baseline, although the last labs in our computer system showed that it as far back as October, he has had an elevated creatinine around 1.4. Due to the patient's hyponatremia, the hospitalists were asked to evaluate the patient for admission. PAST MEDICAL HISTORY: 1. Hyperlipidemia. 2. Hypertension. 3. BPH. 4. Coronary artery disease. 5. History of alcohol abuse. 6. Chronic pain. PAST SURGICAL HISTORY: 1. Status post hernia repair. 2. Status post left total hip arthroplasty. 3. Status post left total knee arthroplasty. 4. Status post coronary artery bypass graft x2. HOME MEDICATIONS: Include: 1. Percocet 10/325 two tablets oral every 6 hours. 2. Tamsulosin 0.4 mg oral daily. 3. Naproxen 375 mg oral twice daily. 4. Multivitamin 1 tablet oral daily. 5. Nasonex 2 sprays to both nares daily as needed for nasal congestion. 6. Metoprolol succinate 25 mg oral daily. 7. Lovastatin 40 mg oral daily at bedtime. 8. Lisinopril 2.5 mg oral daily. 9. Gabapentin 900 mg oral 3 times daily. 10. Colace 100 mg oral twice daily. 11. Vitamin B12 2500 mcg oral daily. 12. Vitamin D 1000 units oral daily. 13. Aspirin 325 mg oral daily. 14. Albuterol 2 puffs inhalation every 4 hours as needed for shortness of breath or wheeze. ALLERGIES: 1. HYDROCODONE caused nausea in the past. 2. SEASONAL ALLERGIES. FAMILY HISTORY: The patient's father had a history of an OR. The patient's mother had a history of liver cancer. SOCIAL HISTORY: The patient is a former smoker. He quit smoking approximately 5 years ago. Prior to that, he smoked a pipe. He is a former alcoholic. He quit drinking alcohol in 2012. He denies recreational drug use. The patient's brother, Joel Felix, will be his surrogate decision maker in the event he is unable to make decisions for himself. REVIEW OF SYSTEMS: I performed an 11-point review of systems. All the pertinent positives and negatives are mentioned in the history of present illness. The remaining review of systems is negative. PHYSICAL EXAMINATION GENERAL APPEARANCE: The patient is alert, appears to be in no acute distress. VITAL SIGNS: Temperature 97.3, heart rate 64, respiratory rate 16, O2 sat 96% on room air, blood pressure 172/59. HEENT: Normocephalic, atraumatic. Pupils are equal and reactive to light. Extraocular movements are intact. RESPIRATORY: There is no accessory muscle use. The lungs are clear to auscultation, bilateral. CARDIOVASCULAR: Regular rate and rhythm. S1, S2 present. There are no murmurs , rubs, or gallops heard. ABDOMEN: Soft, nontender, nondistended. Bowel sounds present x4. EXTREMITIES: Bilateral lower extremity edema with the right lower extremity more swollen than the left and he has 1 to 2+ edema. DP and PT pulses are 2+ and symmetric. MUSCULOSKELETAL: There is no clubbing or cyanosis noted. The patient exhibits good strength in all extremities. NEUROLOGICAL: The patient is alert and oriented to person, place, and time. Cranial nerves II through XII are intact. PSYCHOLOGICAL: The patient is calm and mostly cooperative. SKIN: There are no rashes or abnormalities seen. DIAGNOSTIC STUDIES/LABORATORY DATA: Sodium 126, potassium 4.6, chloride 92, CO2 26, BUN 26, creatinine 1.66, glucose 90. White blood cell count 6.0, hemoglobin 9.7, hematocrit 28, platelet count 173. BNP 173. Stool occult blood negative. EKG, sinus rhythm, rate of 73. There are no acute signs of ischemia. This EKG is similar to previous from 06/11/17. Chest x-ray from today. Radiologist's impression: Postoperative changes, there is no active disease. IMPRESSION: Mr. Felix is a 77-year-old male with a past medical history significant for hyperlipidemia, hypertension, benign prostatic hypertrophy, coronary artery disease, alcohol abuse, and chronic pain who presented to the emergency room after being asked to come per his primary care provider. The patient was found to have hyponatremia and will be admitted as an outpatient for hyponatremia and generalized weakness. ASSESSMENT/PLAN: 1. Hyponatremia. The patient's sodium has actually improved from the previous one drawn 2 days ago. Previously, he was 121. I am going to get a serum osmolality in addition to urine studies. I am going to give him some IV hydration to see if this improves his sodium. He does look like he may be dehydrated. He states he has not been drinking fluids well. His creatinine is also up slightly. I am also going to hold his lisinopril. 2. Acute on chronic kidney disease. The patient's creatinine appears to be slightly above his baseline. I will give him IV hydration, see if this improves in the morning. I also added on a urine test to check a FENa. We will hold his lisinopril for now. 3. Lower extremity edema. The right lower extremity is worse than the left. I am going to get an ultrasound to rule out a deep vein thrombosis. 4. Anemia. He has been anemic for awhile now. We will get further blood work and he should follow-up with his primary care provider. 5. Hyperlipidemia. The patient will be continued on his home lovastatin or other substitute. 6. Hypertension. The patient has been normotensive and hypertensive in the emergency room. I am going to hold his lisinopril for now in the setting of acute kidney injury. 7. History of coronary artery disease. The patient will be continued on his home metoprolol, statin, and aspirin. 8. History of benign prostatic hypertrophy. The patient will be continued on his home tamsulosin. 9. History of alcohol abuse. Not currently an issue. The patient states he has been sober since 2012. 10. Chronic pain. The patient will be continued on his home Percocet and gabapentin. 11. Fluids, electrolytes, and nutrition. The patient will be on a heart- healthy diet. 12. Code status: Do not resuscitate. A new MOLST form has been completed. 13. DVT prophylaxis: He is at highest risk and will have subcu heparin. I am going to hold on mechanical DVT prophylaxis in the setting of his lower extremity swelling. 13. Disposition: Observation. TIME SPENT: Time for this admission was approximately 60 minutes, greater than half of that was spent [id number] with the patient discussing medications, past medical history, the events leading up to his arrival today, performing a physical examination. The case has been reviewed with the attending, Dr. Agustin, who agrees with the plan of care. Reviewed by GILL CRAWFORD 03/02/18 1527 [id number]/[facility] #: [id number] LANCE
[2018-02-26] MEDS: Heparin VIAL(*) 5000 UNITS/ML VIAL (FIVE THOUSAND) SUBCUT SCH ×2 (05:42→14:18)
[2018-02-26 06:44] LABS: ABS Basophils 0.1 10^3/ul (0-0.2); ABS Eosinophils 0.5 10^3/ul (0-0.6); ABS Lymphocytes 0.8 10^3/ul (1.0-4.8); ABS Monocytes 0.8 10^3/ul (0-0.8); ABS Neutrophils 3.3 10^3/ul (1.5-7.7); ABS Nucleated RBC 0 10^3/ul; Eosinophil % 8.4 % (0-6); Hematocrit 27 % (42-52); Hemoglobin 9.4 g/dl (14.0-18.0); Lymphocyte % 14.6 % (25-47); Mean Corpuscular HGB Conc 35 g/dl (31-36); Mean Corpuscular Hemoglobin 32 pg (27-31); Mean Corpuscular Volume 92 fL (80-94); Mean Platelet Volume 7.9 um3 (7.4-10.4); Nucleated Red Blood Cells % 0; Platelet Count 179 10^3/ul (150-450); Red Blood Count 2.95 10^6/ul (4.0-5.4); Red Cell Distribution Width 13 % (10.5-15); White Blood Count 5.5 10^3/ul (3.5-10.8)
[2018-02-26 07:02] LABS: EGFR Non-African American 63.7 (>60)
[2018-02-26] MEDS: NS 0.9% 1000 ML* 1,000 ML IV SCH (08:06)
[2018-02-26] MEDS: Docusate CAP* 100 MG PO SCH (08:07)
[2018-02-26] MEDS: Gabapentin CAP(*) 300 MG PO SCH (08:07)
[2018-02-26] MEDS ORDERED: Cyanocobalamin TAB* 500 MCG PO SCH (09:00)
[2018-02-26] MEDS ORDERED: Cholecalciferol TAB* 1000 UNITS PO SCH (09:00)
[2018-02-26] MEDS ORDERED: Aspirin TAB* 325 MG PO SCH (09:00)
[2018-02-26] MEDS ORDERED: Tamsulosin CAP* 0.4 MG PO SCH (09:00)
[2018-02-26] MEDS ORDERED: Multivitamins/Minerals TAB PO SCH (09:00)
[2018-02-26] MEDS ORDERED: Metoprolol Succinate XL TAB* 25 MG PO SCH (09:00)
[2018-02-26 13:46] VITALS: BP 158/48
--- NOTE | 2018-02-26 22:11 | DS ---
CC: Dr. Grimaldo * DISCHARGE SUMMARY: DATE OF ADMISSION: 02/25/18 DATE OF DISCHARGE: 02/26/18 PRIMARY CARE PROVIDER: Dr. Grimaldo. DISCHARGE DIAGNOSIS: Acute kidney injury and hyponatremia due to dehydration. SECONDARY DIAGNOSES: 1. History of hyperlipidemia. 2. Hypertension. 3. Benign prostatic hypertrophy. 4. History of coronary artery disease. 5. History of alcohol abuse. 6. History of chronic pain. 7. History of coronary artery bypass grafting in the past. HOME MEDICATIONS: Include: 1. Percocet 1 to 2 tablets every 6 hours p.r.n. 2. Naproxen 375 mg p.o. b.i.d. The patient's naproxen prescription was changed to p.r.n. and not on the scheduled b.i.d. dose. 3. Multivitamin 1 tablet daily. 4. Flomax 0.4 mg daily. 5. Nasonex nasal spray 2 sprays both nostrils daily. 6. Toprol-XL 25 mg daily. 7. Mevacor 40 mg daily. 8. Neurontin 900 mg 3 times a day. 9. Colace 100 mg b.i.d. 10. Vitamin B12, 2500 mcg daily. 11. Vitamin D 1000 units daily. 12. Aspirin 325 mg daily. 13. Albuterol inhaler 2 puffs every 4 hours p.r.n. LABORATORY DATA AND STUDIES PERFORMED DURING THE HOSPITAL STAY: Included: On 02/26/18, sodium of 133, potassium 4.0, chloride 101, carbon dioxide 27, BUN 19 , creatinine 1.12. Iron studies showed iron 53, TIBC 309, percent iron saturation 17, transferrin 221, ferritin 91, vitamin B12 level 1125, and folate 14. Stool occult blood was negative at admission. CBC on 02/26/18 showed white blood cell count of 5.5, hemoglobin of 9.4, hematocrit of 27, and platelets of 179,000. Urinalysis was grossly unremarkable. Portable chest x-ray obtained at admission, impression: "Postoperative change. No active disease." HOSPITALIZATION COURSE: Juan Luis Felix is a 77-year-old male with history of as above mentioned, who presented to the hospital after he obtained directions from his primary care provider's to come into the ED for evaluation for abnormal lab work. He himself has been feeling at his baseline. He has history of general deconditioning and he ambulates with a rolling walker and has been homebound. He had arranged for him to have a live in housekeeper who comes in a few times a week to take care of his house, laundry and groceries. He had visiting nurse association for physical therapy, but apparently they signed off. He was seen by his primary care providers and it was noted that his sodium was 121 on 02/23/18. His repeat sodium level was better at 126. At that point, he was sent to the ED for evaluation. Here, he was admitted for overnight observation with a diagnosis of dehydration. He also had acute kidney injury with a creatinine of 1.66 at admission. On the day of discharge, after intravenous fluid hydration, his creatinine is down to 1.12. His sodium is up from 126 to 133. His lisinopril was at this point discontinued and his naproxen was ordered on a p.r.n. basis and not as scheduled basis. The patient was not ready to discontinue his naproxen at this point. The patient is going to be discharged home with arrangement of visiting nurses for followup by our community case manager. PHYSICAL EXAMINATION: At the time of discharge, blood pressure of 154/46, heart rate of 69 and regular, respiratory rate 18, oxygen saturation 98% on room air, temperature 97.7. General: The patient is a very pleasant 77-year- old male, who is in no acute distress. Alert, awake, and oriented x3. HEENT: Head: Atraumatic, normocephalic. Eyes: Pupils are equal, reactive to light and accommodation. Oropharynx is clear. Mucosa moist. Neck: Supple. No JVD. No bruits bilaterally. Cardiovascular: Regular rate and rhythm. No murmur. Respiratory: Clear to auscultation bilaterally. Abdomen: Soft, nontender. Bowel sounds are present in all 4 quadrants. Extremities: There is +1 pitting pedal edema. Pulses are 2+ bilaterally. There is no clubbing or cyanosis. On neuro evaluation, speech is clear. Cranial nerves II through XII are grossly intact. Motor strength is 5/5 bilaterally. Please note that this is a short summary of the patient's hospitalization. Please refer to further medical record for details. Please also note that the patient was advised to drink a significant amount of liquids, which he neglected in the past. The patient is recommended to follow up with his primary care provider in 4 to 7 days. Please also note that in regards to the patient's normocytic anemia which is chronic, we did iron studies which showed good iron TIBC level, but percent iron saturation on the lower side at 17. The patient has good and unremarkable vitamin B12 and folate level. At this point, I suspect that his anemia is anemia of chronic disease. The patient's hemoglobin had been in the range of 9 to 11 in the past 5 years. TIME SPENT: Approximately 35 minutes were spent on discharge of this patient. [id number]/[facility] #: [id number] LANCE
== END 2018-02-26 14:35 | disposition home or self-care (01) ==
LOC: ED 11:02 → MED 18:34
PROVIDERS: ADMIT Internal Medicine; ATTEND Internal Medicine
DX: N17.9 Acute kidney failure, unspecified (principal); E87.1 Hypo-osmolality and hyponatremia; E86.0 Dehydration; E78.5 Hyperlipidemia, unspecified; I10 Essential (primary) hypertension; I25.10 Atherosclerotic heart disease of native coronary artery without angina pectoris; Z86.59 Personal history of other mental and behavioral disorders; N40.0 Benign prostatic hyperplasia without lower urinary tract symptoms; Z96.642 Presence of left artificial hip joint; Z96.652 Presence of left artificial knee joint; Z87.891 Personal history of nicotine dependence; Z95.1 Presence of aortocoronary bypass graft; D64.9 Anemia, unspecified; N18.9 Chronic kidney disease, unspecified
CPT/HCPCS: 36415; 71046; 80048; 80053; 81003; 82272; 82570; 82607; 82728; 82746; 83540; 83550; 83880; 83930; 83935; 84300; 84484; 85025; 85027; 85610; 85730; 86850; 86900; 86901; 93005; 96360; 96361; 99284; A9270-GY; G0378; G8978-GP-CL; G8979-GP-CJ; J1644

== ENCOUNTER 2018-03-09 05:21 | Inpatient (IN) | payer MEDICARE ==
[2018-03-09] MEDS ORDERED: Labetalol IV* 5 MG/ML 20 ML VIAL IV PUSH ONE (05:36)
[2018-03-09 06:38] LABS: ABS Basophils 0 10^3/ul (0-0.2); ABS Eosinophils 0.1 10^3/ul (0-0.6); ABS Lymphocytes 0.8 10^3/ul (1.0-4.8); ABS Neutrophils 6.4 10^3/ul (1.5-7.7); ABS Nucleated RBC 0 10^3/ul; Eosinophil % 1.1 % (0-6); Hematocrit 27 % (42-52); Hemoglobin 9.4 g/dl (14.0-18.0); Lymphocyte % 9.9 % (25-47); Mean Corpuscular HGB Conc 35 g/dl (31-36); Mean Corpuscular Hemoglobin 32 pg (27-31); Mean Corpuscular Volume 92 fL (80-94); Mean Platelet Volume 7.8 um3 (7.4-10.4); Nucleated Red Blood Cells % 0; Platelet Count 197 10^3/ul (150-450); Red Blood Count 2.94 10^6/ul (4.0-5.4); Red Cell Distribution Width 13 % (10.5-15); White Blood Count 8.4 10^3/ul (3.5-10.8)
[2018-03-09 06:38] LABS: Urine Appearance Clear; Urine Blood 2+ (Negative); Urine Color Straw; Urine Ketones Trace (Negative); Urine Protein Negative (Negative); Urine Specific Gravity 1.004 (1.010-1.030); Urine Urobilinogen Negative (Negative)
[2018-03-09 06:47] LABS: INR 1.02 (0.77-1.02)
[2018-03-09] MEDS ORDERED: Levofloxacin 750 MG IVPREMIX(* 750 MG/150 ML BAG IVPB ONE (06:48)
--- NOTE | 2018-03-09 06:53 | ED ---
Amelie Zhao Gabriel, scribed for Rigoberto Arrington MD on 03/09/18 at 0536 . Complex/Multi-Sys Presentation - HPI Summary HPI Summary: This patient is a 77 year old [facility] that occurred earlier this morning. The patient rates the pain 0/10 in severity. Patient reports increased LE edema and trouble ambulating. Patient denies pain and n/v. Pt ambulates with a walker at baseline but today he was unable to walk at all. - History Of Current Complaint Chief Complaint: EDWeakness Time Seen by Provider: 03/09/18 05:25 Hx Obtained From: Patient Onset/Duration: Still Present Timing: Constant Severity Currently: Moderate Severity Initially: Moderate Associated Signs And Symptoms: Positive: Other - increased LE edema and trouble ambulating - Allergies/Home Medications Allergies/Adverse Reactions: Allergies Allergy/AdvReac Type Severity Reaction Status Date / Time No Known Allergies Allergy Verified 03/09/18 05:59 PMH/Surg Hx/FS Hx/Imm Hx Previously Healthy: Yes Endocrine/Hematology History: Reports: Hx Anemia - TAKING IRON TABLETS Denies: Hx Diabetes, Hx Sickle Cell Disease Cardiovascular History: Reports: Hx Coronary Artery Disease, Hx Hypercholesterolemia, Hx Hypertension, Hx Valvular Heart Disease Denies: Hx Pacemaker/ICD Respiratory History: Reports: Hx Chronic Obstructive Pulmonary Disease (COPD), Hx Seasonal Allergies, Other Respiratory Problems/Disorders - USES INHALER DAILY GI History: Reports: Hx Gastroesophageal Reflux Disease, Other GI Disorders - CONSTIPATION USES MIRALAX History: Reports: Hx Benign Prostatic Hyperplasia, Other Problems/ Disorders - BPH Denies: Hx Dialysis Musculoskeletal History: Reports: Hx Arthritis - HIPS AND LEGS Sensory History: Reports: Hx Contacts or Glasses Denies: Hx Hearing Aid Opthamlomology History: Reports: Hx Contacts or Glasses Neurological History: Denies: Hx Dementia, Hx Seizures, Other Neuro Impairments/Disorders Psychiatric History: Denies: Hx Anxiety, Hx Attention Deficit Hyperactivity Disorder, Hx Eating Disorder, Hx Depression, Hx Panic Disorder, Hx Post Traumatic Stress Disorder, Hx Inpatient Treatment, Hx Community Mental Health Tx, Hx Schizophrenia, Hx Bipolar Disorder, Hx Suicide Attempt, Hx of Violent Episodes Against Others, Hx Substance Abuse, Other Psychiatric Issues/Disorders - Surgical History Surgery Procedure, Year, and Place: HERNIA SURGERY 04/2013 [facility] 2011, RIGHT KNEE 2001, LT HIP REPLACEMENT 2012, RT KNEE REPLACEMENT 06/23, Hx Anesthesia Reactions: No - Immunization History Date of Tetanus Vaccine: Unk Date of Influenza Vaccine: Fall 2014 Infectious Disease History: No Infectious Disease History: Denies: Hx Clostridium Difficile, Hx Hepatitis, Hx Human Immunodeficiency Virus (HIV), Hx Shingles, Hx Tuberculosis, Traveled Outside the [place] in Last 30 Days - Family History Known Family History: Positive: Other - Mother: liver [place]. Father: history of [place]. Negative: Seizure Disorder - Social History Alcohol Use: None Alcohol Amount: glass of wine with dinner Substance Use Type: Reports: Prescribed Smoking Status (MU): Former Smoker Type: Pipe Review of Systems Constitutional: Other - trouble ambulating Negative: Vomiting, Nausea Positive: Edema All Other Systems Reviewed And Are Negative: Yes Physical Exam - Summary Physical Exam Summary: VITAL SIGNS: Reviewed. GENERAL: Patient is a well-developed and nourished male who is lying comfortable in the stretcher. Patient is not in any acute respiratory distress. HEAD AND FACE: No signs of trauma. No ecchymosis, hematomas or skull depressions. No sinus tenderness. EYES: PERRLA, EOMI x 2, No injected conjunctiva, no nystagmus. EARS: Hearing grossly intact. Ear canals and tympanic membranes are within normal limits. MOUTH: Oropharynx within normal limits. NECK: Supple, trachea is midline, no adenopathy, no JVD, no carotid bruit, no c- spine tenderness, neck with full ROM. CHEST: Symmetric, no tenderness at palpation LUNGS: Clear to auscultation bilaterally. No wheezing or crackles. CVS: Regular rate and rhythm, S1 and S2 present. no gallops appreciated. There is a 2/6 systolic murmur over the left sternal border ABDOMEN: Soft, non-tender. No signs of distention. No rebound no guarding, and no masses palpated. Bowel sounds are normal. EXTREMITIES: FROM in all major joints, bilateral pitting edema 3+, no cyanosis or clubbing. NEURO: Alert and oriented x 3. Grossly nonfocal. Speech is slowed and follows commands but is slow to respond SKIN: Dry and warm Triage Information Reviewed: Yes Vital Signs On Initial Exam: Initial Vitals Temp Pulse Resp BP Pulse Ox 97.6 F 71 17 213/76 97 03/09/18 05:32 03/09/18 05:32 03/09/18 05:32 03/09/18 05:32 03/09/18 05:32 Vital Signs Reviewed: Yes Diagnostics - Vital Signs Vital Signs Temp Pulse Resp BP Pulse Ox 03/09/18 05:32 97.6 F 71 17 213/76 97 - Laboratory Result Diagrams: 03/09/18 06:23 Lab Statement: Any lab studies that have been ordered have been reviewed, and results considered in the medical decision making process. - Radiology CXR Radiology Interpretation Completed By: ED Physician - Right middle lobe infiltrate. Awaiting final report. - EKG 0640 Cardiac Rate: NL EKG Rhythm: Sinus Rhythm - at [address] Segment: Non-Specific EKG Interpretation: PEC's Complex Multi-Symp Course/Dx Assessment/Plan: This patient is a 77 year old M [facility]/p fall that occurred earlier this morning. The patient rates the pain 0/10 in severity. Patient reports increased LE edema and trouble ambulating. Patient denies pain and n/v. Pt ambulates with a walker at baseline but today he was unable to walk at all. In the ED course the patient was given Trandate. The patient will be signed out to Dr. Arauz awaiting CT head and CXR. - Diagnoses Provider Diagnoses: Weakness Discharge - Sign-Out/Discharge Documenting (check all that apply): Sign-Out Patient Signing out patient TO: Elian Arauz - Discharge Plan Referrals: Pedro Grimaldo MD [Primary Care Provider] - The documentation as recorded by the Amelie mercer Gabriel accurately reflects the service I personally performed and the decisions made by me, Rigoberto Arrington MD.
[2018-03-09 07:53] LABS: EGFR Non-African American 51.4 (>60)
--- NOTE | 2018-03-09 08:35 | RAD ---
INDICATION: Weakness. COMPARISON: Comparison is made with a prior CT of the brain from June 11, 2014. TECHNIQUE: Contiguous axial sections of the brain were obtained from the skull base to the vertex without contrast. FINDINGS: The ventricles, cisterns and sulci are enlarged consistent with diffuse atrophy. No significant focal abnormality or mass effect is seen. There is no evidence for hemorrhage. There is mild mucosal thickening within the ethmoid and maxillary sinuses. The visualized portion of the paranasal sinuses and mastoid air cells otherwise appear clear. IMPRESSION: 1. NO EVIDENCE FOR GROSS ACUTE INFARCT, MASS EFFECT OR HEMORRHAGE. 2. DIFFUSE ATROPHY, UNCHANGED.
--- NOTE | 2018-03-09 08:37 | RAD ---
INDICATION: Weakness. COMPARISON: Comparison is made with a prior chest x-ray study from February 25, 2018. TECHNIQUE: A portable view of the chest was obtained. FINDINGS: The patient appears to be status post coronary artery bypass surgery. The heart is within normal limits in size. The lungs are underinflated. There are scattered bilateral patchy perihilar and basilar infiltrates. No pleural effusion is seen. IMPRESSION: LOW LUNG VOLUMES, SMALL BILATERAL INFILTRATES.
--- NOTE | 2018-03-09 09:06 | ED ---
Ti Zhao Julia, veronicaed for Elian Arauz on 03/09/18 at 0715 . Progress - Progress Note Progress Note: This patient is signed out from Dr. Arrington awaiting Brain CT and CXR.A Brain CT reveals, as per radiologist, No acute brain parenchymal abnormality. No hemorrhage, mass or acute territorial infarct. Atrophy similar to 09/15/17 brain MRI. No skull fracture. Minimal mucoperiosteal thickening paranasal sinuses. Visualized mastoid air cells clear. ED Physician has reviewed this report. CXR reveals right upper lobe infiltrate. Course/Dx - Course Course Of Treatment: 77 y/o patient signed our from Dr. Arrington awaiting Brain CT and CXR. CXR is indicative of PNA. Brain CT with no new changes. Previous labs are indicative of hyponatremia. Discussed results with Dr. Agustin, who agrees to admit the patient. - Diagnoses Provider Diagnoses: Pneumonia, Hyponatremia - Provider Notifications Discussed Care Of Patient With: Angelita Agustin - hospitalist Time Discussed With Above Provider: 08:20 Instructed by Provider To: Admit As Inpatient Discharge - Sign-Out/Discharge Documenting (check all that apply): Discharge/Admit/Transfer - admit - Discharge Plan Condition: Stable Disposition: ADMITTED TO [facility] Referrals: Pedro Grimaldo MD [Primary Care Provider] - The documentation as recorded by the Ti mercer Julia accurately reflects the service I personally performed and the decisions made by Davonte galvan Emmanuel.
[2018-03-09] MEDS ORDERED: Ondansetron 40 MG VIAL* 2 MG/ML 20 ML VIAL IV PRN (10:38)
[2018-03-09] MEDS ORDERED: Acetaminophen TAB* 325 MG PO PRN ×2 (10:38→22:59)
[2018-03-09] MEDS ORDERED: Al Hydrox/Mg Hydrox/Simet LIQ* 30 ML UDC PO PRN (10:38)
[2018-03-09] MEDS ORDERED: Magnesium Sulfate 2 GM IV* 2 GM/50 ML BAG IVPB ONE (10:43)
[2018-03-09] MEDS ORDERED: Albuterol HFA INHALER* 8 gm MDI INH PRN (10:45)
[2018-03-09] MEDS: Metoprolol Succinate XL TAB* 25 MG PO SCH (11:41)
[2018-03-09] MEDS: NS 0.9% 1000 ML* 1,000 ML IV SCH (14:27)
[2018-03-09] MEDS: cefTRIAXone(*) 1 GM in NS 0.9% 50 ML* 50 ML IVPB SCH (14:27)
[2018-03-09] MEDS: Gabapentin CAP(*) 300 MG PO SCH ×2 (14:28→22:12)
[2018-03-09] MEDS: Heparin VIAL(*) 5000 UNITS/ML VIAL (FIVE THOUSAND) SUBCUT SCH ×2 (14:30→22:18)
[2018-03-09] MEDS: oxyCODONE/Acetamin 5/325 MG* TAB PO SCH ×2 (14:33→17:54)
[2018-03-09] MEDS: Acetaminophen TAB* 325 MG PO SCH ×2 (14:33→17:54)
[2018-03-09] MEDS: oxyCODONE TAB* 5 MG TAB PO SCH ×2 (14:33→17:54)
[2018-03-09] MEDS: Tamsulosin CAP* 0.4 MG PO SCH (14:34)
[2018-03-09] MEDS: Azithromycin IV(*) 500 MG in NS 0.9% 250 ML* 250 ML IVPB SCH (14:54)
--- NOTE | 2018-03-09 21:10 | HP ---
CC: Dr. Grimaldo * HISTORY AND PHYSICAL: DATE OF ADMISSION: 03/09/18 PROVIDER: Iza Patterson NP PRIMARY CARE PROVIDER: Dr. Grimaldo. ATTENDING PHYSICIAN WHILE IN THE HOSPITAL: Dr. Angelita Agustin * (dictated by Iza Patterson NP). CHIEF COMPLAINT: 1. Fall. 2. Weakness. HISTORY OF PRESENT ILLNESS: Mr. Felix is a 77-year-old male, who carries a past medical history of hyperlipidemia, hypertension, BPH, coronary artery disease, and chronic pain, who presented to the emergency room early this a.m. The patient states that he was feeling in his normal state of health and got up to go to the bathroom during the night. He states that he fell. He does not remember falling or feeling dizzy or weak prior to falling, only remembers waking up and being on the floor. He does report that he vomited approximately 3:30 this a.m. He denies any fever or chills. Denies any diarrhea or abdominal pain. Denies any blood in the vomit. The patient reports that he has also had decreased appetite x1 week. He has been skipping meals and has decreased fluid intake x1 week. He denies any cough or congestion. Denies any rhinorrhea. Denies any dysuria or hematuria. He denies any shortness of breath or chest pain. No fevers were reported, but because of his weakness and falls, hyponatremia, we were asked to evaluate him for admission. PAST MEDICAL HISTORY: Significant for hyperlipidemia, hypertension, BPH, coronary artery disease, history of alcohol abuse, and chronic pain. PAST SURGICAL HISTORY: 1. Hernia repair. 2. Left total hip arthroplasty. 3. Left total knee arthroplasty. 4. Coronary artery bypass graft x2. HOME MEDICATIONS: Include: 1. Percocet 2 tablets q.6 hours. 2. Tamsulosin 0.4 mg daily. 3. Naproxen 375 orally b.i.d. 4. Multivitamin 1 p.o. daily. 5. Nasonex 2 sprays both nares as needed for nasal congestion. 6. Metoprolol 25 p.o. daily. 7. Lovastatin 40 mg p.o. at bedtime. 8. Gabapentin 900 mg t.i.d. 9. Colace 100 mg b.i.d. 10. Vitamin B12 2500 mcg daily. 11. Vitamin D 1000 units orally daily. 12. Aspirin 325 oral daily. 13. Albuterol 2 puffs every 4 hours as needed for shortness of breath or wheeze. ALLERGIES: HYDROCODONE causes nausea, SEASONAL allergies. FAMILY HISTORY: The patient's father has a history of an NC. The mother had a history of liver cancer. SOCIAL HISTORY: The patient is a former smoker. He quit approximately 5 years ago. Prior to quitting smoking, he smoked a pipe. He is a former alcoholic. He quit drinking approximately 3 to 5 years ago. He denies any recreational drug use. In the event, he is unable to make his own decisions, surrogate decision maker is his brother, Joel Felix. REVIEW OF SYSTEMS: There is no documented fever. There has been no significant weight change. There is no double vision. Denies any ear drainage. Denies any rhinorrhea. He denies any cough or sore throat. He denies any chest pain. He denies any shortness of breath or nocturnal dyspnea. There was no abdominal pain. There was no nausea. He did report vomiting x1. Denies any dysuria or frequency. There is unknown loss of consciousness. Denies any pruritus or skin ulcerations. A review of 14 systems was completed and all others were negative. PHYSICAL EXAMINATION GENERAL: At this time, Mr. Felix is a 77-year-old male who appears weak, lying on the stretcher in the emergency room. He does not appear to be in any acute distress. VITAL SIGNS: As follows: Blood pressure 169/79, heart rate is 81, respirations 15, O2 saturation 97% to 98% on room air, temperature was 97.6. HEENT: Head is atraumatic, normocephalic. Eyes: EOMs are intact. Sclerae anicteric. Oral mucosa appears to be dry. NECK: Supple. There is no C-spine tenderness. LUNGS: Clear to auscultation bilaterally. There are no wheezes, rales, or rhonchi. CARDIAC: S1, S2. There is regular rate and rhythm. There are no rubs or gallops. ABDOMEN: Soft, flat, and nontender. Bowel sounds are active x4. EXTREMITIES: Pulses are +2 throughout. He is able to move all 4 extremities with 4/5 strength. He does have bilateral lower leg pitting edema. NEUROLOGIC: He is alert, he is oriented x3. Tongue is midline. Speech is clear, but soft. There are no focal deficits. SKIN: He does have an abrasion to the top of his left foot. DIAGNOSTIC STUDIES/LAB DATA: WBCs were 8.4, RBCs 2.94, hemoglobin was 9.4, hematocrit was 27, platelet count was 197. INR was 1.02, aPTT was 29.1. Chemistry: Sodium was 122, potassium was 3.8, chloride was 89, BUN was 27, creatinine 1.35, serum osmolality was 271, lactic acid was 1.3, calcium was 9.6 , magnesium was 1.7. ASTs were 22, ALTs were 12. Creatine kinase was 555. Troponin was 0.00. BNP was 116. TSH was 0.54. Procalcitonin was 0.1. Urine pH was 7, specific gravity 1.004, urine protein was negative, ketones were trace , blood was +2, nitrites were negative, bilirubin was negative, urobilinogen was negative, urine leukocyte esterase was negative, urine wbc's were absent, rbc's were trace, bacteria was absent, and urine glucose is negative. Electrocardiogram from 03/09/18 showed sinus rhythm at a rate of 68. He had a chest x-ray on 03/09/18. Radiologist's impression: Low lung volume, small bilateral infiltrates. CT of the head on 03/09/18. Radiologist's impression: No evidence for gross acute infarct, mass effect, or hemorrhage. Diffuse atrophy unchanged. ASSESSMENT AND PLAN: Mr. Felix is a 77-year-old male, who presented to the emergency room with complaints of fall and weakness. He was found to have hyponatremia when evaluated in the emergency room. He will be admitted under observation status for: 1. Weakness. I suspect this could be related to underlying pneumonia, as well as dehydration and hyponatremia. The chest x-ray did show bilateral infiltrates. The urine was clear. The patient will be rehydrated with normal saline at 100 cc per hour. We will repeat a BMP in the a.m. We will also add serum osmolality to his lab work as well as urine random sodium and urine osmolality. 2. Pneumonia. Chest x-ray shows bilateral infiltrates. His procalcitonin is negative at 0.1. He denies a cough, congestion, or fever. I will place him on azithromycin 500 IV q.24 hours, as well as ceftriaxone 1 g IV q.24 hours. 3. Hyponatremia. We will place him on normal saline at 100 cc per hour. We will repeat a BMP in the a.m. to reevaluate his sodium level. I suspect this is related to his dehydration and poor p.o. intake as the patient has not been eating or drinking at home x1 week. 4. Hypertension. We will continue him on metoprolol 25 mg p.o. daily. 5. Acute on chronic kidney disease. The patient's creatinine appears to be slightly above his baseline at 1.35. I suspect this is related to dehydration. We will rehydrate him with normal saline at 100 cc per hour. 6. Anemia. He has chronic anemia. He has had that for a while. He should follow up with his primary care provider for further management. 7. Hyperlipidemia. The patient will be continued on his lovastatin or hospital substitute. 8. Coronary artery disease. The patient will be continued on metoprolol, statin, and has aspirin. 9. History of benign prostatic hypertrophy. The patient will be continued on his tamsulosin. 10. Chronic pain. The patient will continue his home Percocet and gabapentin. 11. Fluids, electrolytes, and nutrition. The patient was placed on a heart- healthy diet. 12. Code status. He is a do not resuscitate, do not intubate. A new MOLST form has been completed. 13. DVT prophylaxis. He is at the highest risk scoring and will receive heparin subcu. 14. Disposition. He will be placed on observation. TIME SPENT: Time spent on this admission was approximately 60 minutes, greater than half that time was spent [id number] with the patient discussing his history of present illness and obtaining his physical history. The other half of the time was spent going over the plan of care and implementing my plan of care. I have discussed this with my attending, Dr. Angelita Agustin; she is in agreement with my plan. IZA PATTERSON, ELIER [id number]/[facility] #: [id number] LANCE
[2018-03-09] MEDS: LOVASTATIN 10 MG PO SCH (22:13)
[2018-03-09] MEDS: Docusate CAP* 100 MG PO SCH (22:13)
[2018-03-10] MEDS: Heparin VIAL(*) 5000 UNITS/ML VIAL (FIVE THOUSAND) SUBCUT SCH ×3 (05:29→21:18)
[2018-03-10] MEDS: NS 0.9% 1000 ML* 1,000 ML IV SCH ×2 (05:29→19:32)
[2018-03-10] MEDS: oxyCODONE/Acetamin 5/325 MG* TAB PO PRN ×2 (05:37→11:41)
[2018-03-10] MEDS: oxyCODONE TAB* 5 MG TAB PO PRN ×2 (05:38→11:40)
[2018-03-10 06:30] LABS: ABS Basophils 0 10^3/ul (0-0.2); ABS Eosinophils 0.3 10^3/ul (0-0.6); ABS Lymphocytes 0.9 10^3/ul (1.0-4.8); ABS Monocytes 0.7 10^3/ul (0-0.8); ABS Neutrophils 4.5 10^3/ul (1.5-7.7); ABS Nucleated RBC 0 10^3/ul; Eosinophil % 4.5 % (0-6); Hematocrit 26 % (42-52); Hemoglobin 9.2 g/dl (14.0-18.0); Mean Corpuscular HGB Conc 36 g/dl (31-36); Mean Corpuscular Hemoglobin 33 pg (27-31); Mean Corpuscular Volume 92 fL (80-94); Mean Platelet Volume 7.7 um3 (7.4-10.4); Nucleated Red Blood Cells % 0; Platelet Count 208 10^3/ul (150-450); Red Blood Count 2.79 10^6/ul (4.0-5.4); Red Cell Distribution Width 13 % (10.5-15); White Blood Count 6.4 10^3/ul (3.5-10.8)
[2018-03-10 06:50] LABS: EGFR Non-African American 67.9 (>60)
[2018-03-10] MEDS: Cholecalciferol TAB* 1000 UNITS PO SCH (09:20)
[2018-03-10] MEDS: Aspirin TAB* 325 MG PO SCH (09:20)
[2018-03-10] MEDS: Cyanocobalamin TAB* 500 MCG PO SCH (09:20)
[2018-03-10] MEDS: Multivitamins/Minerals TAB PO SCH (09:21)
[2018-03-10] MEDS: Gabapentin CAP(*) 300 MG PO SCH ×3 (09:21→21:17)
[2018-03-10] MEDS: Metoprolol Succinate XL TAB* 25 MG PO SCH (09:21)
[2018-03-10] MEDS: Docusate CAP* 100 MG PO SCH ×2 (09:21→21:17)
[2018-03-10] MEDS: Tamsulosin CAP* 0.4 MG PO SCH (09:21)
[2018-03-10] MEDS ORDERED: Potassium Chlor TAB* 20 MEQ TAB.ER PO ONE (10:28)
[2018-03-10] MEDS: cefTRIAXone(*) 1 GM in NS 0.9% 50 ML* 50 ML IVPB SCH (13:20)
[2018-03-10] MEDS: Azithromycin IV(*) 500 MG in NS 0.9% 250 ML* 250 ML IVPB SCH (14:25)
--- NOTE | 2018-03-10 15:02 | ECHO ---
Patient: MOE EDWARDS [facility] Rec#: [id number] : 1940 Date: 03/10/2018 Age: 77y Height: 157.48 cm / 62.0 in Weight: 72.57 kg / 159.9 lbs Sex: M BSA: 1.74 Room#: [facility] Admit Date#: 03/09/2018 Type: Inpatient Referring: Ivana Rivera MD Reading: Fazal Bingham MD Improvement Intern: Ilana Miranda,ELLYNCS,RDMS CC: Pedro Grimaldo MD Transthoracic Echocardiogram Indication: Syncope BP: 157/50 HR: 61 Rhythm: NSR Findings History: HTN, HLD, CAD, ETOH, former smoker Technical Comments: The study quality is fair. The study was technically limited due to the patient's inability to lay in the left lateral decubitus position. Left Ventricle: The left ventricular chamber size is normal. Mild concentric left ventricular hypertrophy is observed. Global left ventricular wall motion and contractility are within normal limits. The estimated ejection fraction is 55-60%. Normal left ventricular diastolic filling is observed. Left Atrium: The left atrium is slightly dilated. Right Ventricle: The right ventricular cavity size is normal. The right ventricular global systolic function is low normal. Right Atrium: The right atrial cavity size is normal. Aortic Valve: There is no evidence of aortic valve thickening. There is mild aortic regurgitation. There is no evidence of aortic stenosis. Mitral Valve: There is mitral annular calcification. The mitral valve leaflets are mildly thickened. There is mild mitral regurgitation. There is no evidence of mitral stenosis. Tricuspid Valve: The tricuspid valve leaflets are normal. There is trace to mild tricuspid regurgitation. There is evidence of mild pulmonary hypertension. Pulmonic Valve: The pulmonic valve structure is not well visualized. There is no evidence of pulmonic regurgitation. Pericardium: There is no significant pericardial effusion. Aorta: The ascending aorta is not well visualized. There is no dilatation of the aortic arch. The aortic root is normal in size. Pulmonary Artery: The main pulmonary artery is not well visualized. Venous: The inferior vena cava is not visualized. Conclusions Mild concentric left ventricular hypertrophy is observed. The estimated ejection fraction is 55-60%. The left atrium is slightly dilated. The right ventricular global systolic function is low normal. There is mild aortic regurgitation. There is trace to mild tricuspid regurgitation. There is evidence of mild pulmonary hypertension. similar to 06/2017 Measurements Name Value Normal Range RVIDd (AP) 2D 1.9 cm (0.9 - 2.6) RAd ISD 4CH 4.6 cm (3.4 - 4.9) RA (A4C)W 3.4 cm (2.9 - 4.6) IVSd (2D) 1.3 cm (0.6 - 1) LVPWd (2D) 1.1 cm (0.6 - 1) LVIDd (2D) 3.8 cm (3.6 - 5.4) LVIDs (2D) 3.3 cm - LV FS (2D) 14 % (25 - 45) Aortic Annulus 2.1 cm (1.4 - 2.6) Ao root diameter (2D) 3.1 cm (2.1 - 3.5) Aortic arch 3 cm (1.8 - 3.4) LA dimension (AP) 2D 3.8 cm (2.3 - 3.8) LAd ISD 4CH 5.1 cm (2.9 - 5.3) LA ISD 4CH W 4.6 cm (2.5 - 4.5) Name Value Normal Range LA ESV SP 4CH (A/L) 61.73 ml - LA ESV SP 2CH (A/L) 53.07 ml - LA ESV BP (A/L) 58.36 ml - LA ESV BP (A/L) index 33.5 ml/m2 - LA ESV SP 4CH (MOD) 52.05 ml - LA ESV SP 2CH (MOD) 49.39 ml - Name Value Normal Range MV E-wave Vmax 0.9 m/sec - MV deceleration time 120.5 msec - MV A-wave Vmax 0.5 m/sec - MV E:A ratio 1.8 ratio - P. vein S-wave Vmax 0.4 m/sec - P. vein D-wave Vmax 0.3 m/sec - P. vein S:D Vmax ratio 1.1 ratio - P. vein A-wave duration 118.3 msec - LV septal e' Vmax 0.09 m/sec - LV lateral e' Vmax 0.09 m/sec - LV E:e' septal ratio 10 ratio - LV E:e' lateral ratio 10 ratio - Name Value Normal Range AV Vmax 1.6 m/sec - AV VTI 38.4 cm - AV peak gradient 10 mmHg - AV mean gradient 5 mmHg - LVOT Vmax 1 m/sec - LVOT VTI 24.1 cm - LVOT peak gradient 4 mmHg - LVOT mean gradient 2 mmHg - AR PHT 341.89 msec - AR peak gradient 58.94 mmHg - AUDREY Vmax 0.9 m/sec - Name Value Normal Range TR Vmax 2.9 m/sec - TR peak gradient 34 mmHg - RAP 3 mmHg - RVSP 37 mmHg - Name Value Normal Range PV Vmax 0.7 m/sec - PV peak gradient 2 mmHg -
--- NOTE | 2018-03-10 15:02 | PN ---
Subjective Date of Service: 03/10/18 Interval History: HOSPITALIST PROGRESS NOTE Patient seen and examined at bedside. Care reviewed and d/w El Danielle RN. He states he's still weak today. Very poor historian, but it sounds like he had a syncopal episode yesterday, as he got up to go to the bathroom and woke up some hours later on the floor. Denies dizziness, lightheadedness, chest pain, or palpitations. He was unable to get up and had to push his Life Alert for assistance. He denies any cough or other respiratory symptoms. Family History: Unchanged from Admission Social History: Unchanged from Admission Past Medical History: Unchanged from Admission Objective Active Medications: Acetaminophen (Tylenol Tab*) 325 mg PO Q6HR PRN PRN Reason: PAIN Al Hydrox/Mg Hydrox/Simethicone (Maalox Plus*) 30 ml PO Q6H PRN PRN Reason: INDIGESTION Albuterol (Ventolin Hfa Inhaler*) 2 puff INH Q4H PRN PRN Reason: SOB/WHEEZING Aspirin (Aspirin Tab*) 325 mg PO DAILY [facility] Last Admin: 03/10/18 09:20 Dose: 325 mg Cholecalciferol (Vitamin D Tab*) 1,000 units PO DAILY [facility] Last Admin: 03/10/18 09:20 Dose: 1,000 units Cyanocobalamin (Vitamin B12 Tab*) 2,500 mcg PO DAILY [facility] Last Admin: 03/10/18 09:20 Dose: 2,500 mcg Docusate Sodium (Colace Cap*) 100 mg PO BID [facility] Last Admin: 03/10/18 09:21 Dose: 100 mg Gabapentin (Neurontin Cap(*)) 900 mg PO TID [facility] Last Admin: 03/10/18 14:25 Dose: 900 mg Heparin Sodium (Porcine) (Heparin Vial(*)) 5,000 units SUBCUT Q8HR [facility] Last Admin: 03/10/18 14:26 Dose: 5,000 units Sodium Chloride (Ns 0.9% 1000 Ml*) 1,000 mls @ 100 mls/hr IV PER RATE [facility] Last Admin: 03/10/18 05:29 Dose: 100 mls/hr Ceftriaxone Sodium 1 gm/ (Sodium Chloride) 50 mls @ 200 mls/hr IVPB Q24H [facility] Last Admin: 03/10/18 13:20 Dose: 200 mls/hr Azithromycin 500 mg/ Sodium (Chloride) 250 mls @ 250 mls/hr IVPB Q24H [facility] Last Admin: 03/10/18 14:25 Dose: 250 mls/hr Lovastatin (Mevacor (Nf)) 40 mg PO BEDTIME [facility] PRN Reason: Protocol Last Admin: 03/09/18 22:13 Dose: 40 mg Metoprolol Succinate (Toprol Xl Tab*) 25 mg PO DAILY [facility] Last Admin: 03/10/18 09:21 Dose: 25 mg Multivitamins/Minerals (Theragran/Minerals Tab*) 1 tab PO DAILY [facility] Last Admin: 03/10/18 09:21 Dose: 1 tab Ondansetron HCl (Zofran 40 Mg Vial*) 4 mg IV Q4H PRN PRN Reason: NAUSEA/VOMITING Oxycodone HCl (Roxycodone Tab*) 5 mg PO Q6HR PRN PRN Reason: PAIN Last Admin: 03/10/18 11:40 Dose: 5 mg Oxycodone/Acetaminophen (Percocet 5/325 Tab*) 1 tab PO Q6HR PRN PRN Reason: PAIN Last Admin: 03/10/18 11:41 Dose: 1 tab Tamsulosin HCl (Flomax Cap*) 0.4 mg PO DAILY [facility] Last Admin: 03/10/18 09:21 Dose: 0.4 mg Vital Signs - 8 hr 03/10/18 03/10/18 03/10/18 11:21 11:30 11:40 Temperature 97.6 F Pulse Rate 63 Respiratory 14 14 Rate Blood Pressure 139/40 (mmHg) O2 Sat by Pulse 100 Oximetry Oxygen Devices in Use Now: None Appearance: Elderly gentleman lying in bed in NAD. Eyes: No Scleral Icterus Ears/Nose/Mouth/Throat: Mucous Membranes Moist Neck: Trachea Midline Respiratory: Symmetrical Chest Expansion and Respiratory Effort, Clear to Auscultation Cardiovascular: RRR - Normal S1 and S2 Abdominal: NL Sounds; No Tenderness; No Distention Extremities: - - Bilateral LE pitting edema Neurological: Alert and Oriented x 3 Result Diagrams: 03/10/18 06:05 03/10/18 06:05 Assess/Plan/Problems-Billing Assessment: Mr. Felix is a 77yo M with PMH of HLD, HTN, BPH, CAD s/p CABG, prior h/o alcohol abuse, possible polymyalgia rheumatica, who presented to ED with c/o weakness and fall vs syncope. - Patient Problems (1) Syncope and collapse Comment: - Patient is a very poor historian, but I suspect he had a syncopal episode. He does not recall how he got to the floor. - EKG showed NSR at 68bpm with APCs, no acute ischemic changes. - Transfer to Telemetry, check echocardiogram. - He had a recent admission for ROLO and dehydration, and this appear to be an issue this time again, considering his hyponatremia and creatinine elevation. - Continue IVF and check orthostatic VS. (2) Pneumonia Comment: - Patient has no respiratory symptoms, but as above, very poor historian. - CxR shows bibasilar infiltrates, but this could be atelectasis. - Continue Ceftriaxone/Zithromax, but if cultures negative in 48h, will d/c it. (3) Hyponatremia Comment: - Secondary to dehydration, but this could be associated with SIADH, especially with his urine osmolality >250 with serum sodium of 122. - Improving with IV hydration. (4) Hypertension Comment: - Controlled. - Continue Metoprolol. (5) CAD (coronary artery disease) Comment: - Stable. - Continue Aspirin, statin, and Metoprolol. (6) DVT prophylaxis Comment: - SQ heparin. (7) DNR (do not resuscitate) Status and Disposition: Change to inpatient.
[2018-03-10] MEDS: LOVASTATIN 10 MG PO SCH (21:17)
[2018-03-11] MEDS: Heparin VIAL(*) 5000 UNITS/ML VIAL (FIVE THOUSAND) SUBCUT SCH ×3 (05:28→21:41)
[2018-03-11 05:39] LABS: EGFR Non-African American 83.1 (>60)
[2018-03-11] MEDS: oxyCODONE/Acetamin 5/325 MG* TAB PO PRN ×2 (07:18→19:08)
[2018-03-11] MEDS: Aspirin TAB* 325 MG PO SCH (08:16)
[2018-03-11] MEDS: Metoprolol Succinate XL TAB* 25 MG PO SCH (08:16)
[2018-03-11] MEDS: Cyanocobalamin TAB* 500 MCG PO SCH (08:16)
[2018-03-11] MEDS: Docusate CAP* 100 MG PO SCH ×2 (08:18→19:34)
[2018-03-11] MEDS: Tamsulosin CAP* 0.4 MG PO SCH (08:18)
[2018-03-11] MEDS: Gabapentin CAP(*) 300 MG PO SCH ×3 (08:18→19:34)
[2018-03-11] MEDS: Multivitamins/Minerals TAB PO SCH (08:18)
[2018-03-11] MEDS: Cholecalciferol TAB* 1000 UNITS PO SCH (08:18)
[2018-03-11] MEDS: oxyCODONE TAB* 5 MG TAB PO PRN (08:19)
[2018-03-11] MEDS: NS 0.9% 1000 ML* 1,000 ML IV SCH (08:29)
[2018-03-11] MEDS: cefTRIAXone(*) 1 GM in NS 0.9% 50 ML* 50 ML IVPB SCH (12:37)
[2018-03-11] MEDS: Azithromycin IV(*) 500 MG in NS 0.9% 250 ML* 250 ML IVPB SCH (13:41)
[2018-03-11] MEDS ORDERED: PROCHLORPERAZINE INJ 5 MG/ML 2 ML VIAL IV PRN (14:52)
--- NOTE | 2018-03-11 14:57 | PN ---
Subjective Date of Service: 03/11/18 Interval History: Pt is feeling poorly. He is feeling nauseated currently. He denies any pain. He went for a walk this AM without any difficulty. Objective Active Medications: Acetaminophen (Tylenol Tab*) 325 mg PO Q6HR PRN PRN Reason: PAIN Al Hydrox/Mg Hydrox/Simethicone (Maalox Plus*) 30 ml PO Q6H PRN PRN Reason: INDIGESTION Albuterol (Ventolin Hfa Inhaler*) 2 puff INH Q4H PRN PRN Reason: SOB/WHEEZING Aspirin (Aspirin Tab*) 325 mg PO DAILY [facility] Last Admin: 03/11/18 08:16 Dose: 325 mg Cholecalciferol (Vitamin D Tab*) 1,000 units PO DAILY [facility] Last Admin: 03/11/18 08:18 Dose: 1,000 units Cyanocobalamin (Vitamin B12 Tab*) 2,500 mcg PO DAILY [facility] Last Admin: 03/11/18 08:16 Dose: 2,500 mcg Docusate Sodium (Colace Cap*) 100 mg PO BID [facility] Last Admin: 03/11/18 08:18 Dose: 100 mg Gabapentin (Neurontin Cap(*)) 900 mg PO TID [facility] Last Admin: 03/11/18 13:41 Dose: 900 mg Heparin Sodium (Porcine) (Heparin Vial(*)) 5,000 units SUBCUT Q8HR [facility] Last Admin: 03/11/18 13:42 Dose: 5,000 units Sodium Chloride (Ns 0.9% 1000 Ml*) 1,000 mls @ 100 mls/hr IV PER RATE [facility] Last Admin: 03/11/18 08:29 Dose: 100 mls/hr Ceftriaxone Sodium 1 gm/ (Sodium Chloride) 50 mls @ 200 mls/hr IVPB Q24H [facility] Last Admin: 03/11/18 12:37 Dose: 200 mls/hr Azithromycin 500 mg/ Sodium (Chloride) 250 mls @ 250 mls/hr IVPB Q24H [facility] Last Admin: 03/11/18 13:41 Dose: 250 mls/hr Lovastatin (Mevacor (Nf)) 40 mg PO BEDTIME [facility] PRN Reason: Protocol Last Admin: 03/10/18 21:17 Dose: 40 mg Metoprolol Succinate (Toprol Xl Tab*) 25 mg PO DAILY [facility] Last Admin: 03/11/18 08:16 Dose: 25 mg Multivitamins/Minerals (Theragran/Minerals Tab*) 1 tab PO DAILY [facility] Last Admin: 03/11/18 08:18 Dose: 1 tab Ondansetron HCl (Zofran 40 Mg Vial*) 4 mg IV Q4H PRN PRN Reason: NAUSEA/VOMITING Oxycodone HCl (Roxycodone Tab*) 5 mg PO Q6HR PRN PRN Reason: PAIN Last Admin: 03/11/18 08:19 Dose: 5 mg Oxycodone/Acetaminophen (Percocet 5/325 Tab*) 1 tab PO Q6HR PRN PRN Reason: PAIN Last Admin: 03/11/18 07:18 Dose: 1 tab Tamsulosin HCl (Flomax Cap*) 0.4 mg PO DAILY [facility] Last Admin: 03/11/18 08:18 Dose: 0.4 mg Vital Signs - 8 hr 03/11/18 03/11/18 03/11/18 06:53 07:12 07:18 Temperature 98.0 F Pulse Rate 63 Respiratory 18 12 18 Rate Blood Pressure 160/48 (mmHg) O2 Sat by Pulse 99 Oximetry 03/11/18 03/11/18 03/11/18 08:18 08:19 08:48 Temperature Pulse Rate Respiratory 18 18 18 Rate Blood Pressure (mmHg) O2 Sat by Pulse Oximetry 03/11/18 03/11/18 03/11/18 10:02 11:11 13:41 Temperature 98.2 F Pulse Rate 61 Respiratory 18 16 18 Rate Blood Pressure 166/42 (mmHg) O2 Sat by Pulse 99 Oximetry Oxygen Devices in Use Now: None Appearance: Elderly male sitting up in bed, NAD Eyes: No Scleral Icterus Ears/Nose/Mouth/Throat: Mucous Membranes Moist Respiratory: Symmetrical Chest Expansion and Respiratory Effort, Clear to Auscultation Cardiovascular: NL Sounds; No Murmurs; No JVD, RRR, - - 2+ ankle edema bilaterally Abdominal: NL Sounds; No Tenderness; No Distention Extremities: No Clubbing, Cyanosis Skin: No Nodules or Sclerosis Neurological: Alert and Oriented x 3 Result Diagrams: 03/10/18 06:05 03/11/18 05:14 Assess/Plan/Problems-Billing Mr. Felix is a 77yo M with PMH of HLD, HTN, BPH, CAD s/p CABG, prior h/o alcohol abuse, possible polymyalgia rheumatica, who presented to ED with c/o weakness and fall vs syncope. - Patient Problems (1) Syncope and collapse Current Visit: Yes Status: Acute Code(s): R55 - SYNCOPE AND COLLAPSE SNOMED Code(s): 232573338 Comment: Patient is a very poor historian, but it was suspected he had a syncopal episode. He does not recall how he got to the floor. Echo shows normal EF and no diastolic dysfunction, no significant valvular dysfunction. ? secondary to volume depletion. Pt reportedly is walking well. Will monitor again overnight but if stable possibly home tomorrow. (2) Hyponatremia Current Visit: Yes Status: Acute Code(s): E87.1 - HYPO-OSMOLALITY AND HYPONATREMIA SNOMED Code(s): 74451784 Comment: Na level is improving with IVF. Will stop fluids today and monitor Na level tomorrow. (3) Pneumonia Current Visit: Yes Status: Acute Code(s): J18.9 - PNEUMONIA, UNSPECIFIED ORGANISM SNOMED Code(s): 200573196 Comment: There is questionable pna on CXR. Continue ceftriaxone and azithromycin today. If pt still doing well and cultures are negative tomorrow d/ c Abx. (4) Hypertension Current Visit: Yes Status: Acute Code(s): I10 - ESSENTIAL (PRIMARY) HYPERTENSION SNOMED Code(s): 78660341 Comment: BP is moderately elevated. Will add amlodipine 5mg daily. (5) DVT prophylaxis Current Visit: Yes Status: Acute Code(s): KQN4532 - SNOMED Code(s): 053772671 Comment: SQ heparin. (6) DNR (do not resuscitate) Current Visit: Yes Status: Acute Status and Disposition: likely home tomorrow.
[2018-03-11] MEDS: amLODIPine TAB* 5 MG PO SCH (15:36)
[2018-03-11] MEDS: LOVASTATIN 10 MG PO SCH (19:34)
[2018-03-12] MEDS: Heparin VIAL(*) 5000 UNITS/ML VIAL (FIVE THOUSAND) SUBCUT SCH ×3 (05:30→20:37)
[2018-03-12] MEDS: oxyCODONE/Acetamin 5/325 MG* TAB PO PRN ×2 (05:33→16:08)
[2018-03-12 06:11] LABS: Hematocrit 25 % (42-52); Hemoglobin 8.6 g/dl (14.0-18.0); Mean Corpuscular HGB Conc 35 g/dl (31-36); Mean Corpuscular Hemoglobin 32 pg (27-31); Mean Corpuscular Volume 92 fL (80-94); Mean Platelet Volume 7.4 um3 (7.4-10.4); Platelet Count 208 10^3/ul (150-450); Red Blood Count 2.67 10^6/ul (4.0-5.4); Red Cell Distribution Width 13 % (10.5-15)
[2018-03-12 06:27] LABS: EGFR Non-African American 90.1 (>60)
[2018-03-12] MEDS: Cyanocobalamin TAB* 500 MCG PO SCH (08:13)
[2018-03-12] MEDS: Docusate CAP* 100 MG PO SCH ×2 (08:13→20:36)
[2018-03-12] MEDS: Aspirin TAB* 325 MG PO SCH (08:13)
[2018-03-12] MEDS: Tamsulosin CAP* 0.4 MG PO SCH (08:13)
[2018-03-12] MEDS: amLODIPine TAB* 5 MG PO SCH (08:13)
[2018-03-12] MEDS: Multivitamins/Minerals TAB PO SCH (08:13)
[2018-03-12] MEDS: Cholecalciferol TAB* 1000 UNITS PO SCH (08:13)
[2018-03-12] MEDS: Metoprolol Succinate XL TAB* 25 MG PO SCH (08:13)
[2018-03-12] MEDS: oxyCODONE TAB* 5 MG TAB PO PRN ×2 (08:14→16:07)
[2018-03-12] MEDS: Gabapentin CAP(*) 300 MG PO SCH ×3 (08:14→20:36)
[2018-03-12 09:16] LABS: Corrected Retic Count 0.8 % (0.5-1.5); Hematocrit for Retic CNT 25 % (42-52); Immature Retic Fraction 0.39; RBC Retic Count 2.71 10^6/ul (4.6-6.2)
[2018-03-12] MEDS: Azithromycin TAB* 250 MG PO SCH (14:01)
[2018-03-12] MEDS ORDERED: Iohexol 300* (CONTRAST) 10 ML SDV IV ONE (16:48)
--- NOTE | 2018-03-12 17:02 | PN ---
Subjective Date of Service: 03/12/18 Interval History: Patient admitted w/ syncope, hyponatremia. He feels tired today. He does not think he has gotten up from bed today. He reports alvarenga pain, neck pain, chronic, due to OA. Wants reynaldo-murry. Family History: Unchanged from Admission Social History: Unchanged from Admission Past Medical History: Unchanged from Admission Objective Active Medications: Acetaminophen (Tylenol Tab*) 325 mg PO Q6HR PRN PRN Reason: PAIN Al Hydrox/Mg Hydrox/Simethicone (Maalox Plus*) 30 ml PO Q6H PRN PRN Reason: INDIGESTION Albuterol (Ventolin Hfa Inhaler*) 2 puff INH Q4H PRN PRN Reason: SOB/WHEEZING Amlodipine Besylate (Norvasc Tab*) 5 mg PO DAILY [facility] Last Admin: 03/12/18 08:13 Dose: 5 mg Aspirin (Aspirin Tab*) 325 mg PO DAILY [facility] Last Admin: 03/12/18 08:13 Dose: 325 mg Azithromycin (Zithromax Tab*) 250 mg PO Q24H [facility] Stop: 03/13/18 13:31 Last Admin: 03/12/18 14:01 Dose: 250 mg Cholecalciferol (Vitamin D Tab*) 1,000 units PO DAILY [facility] Last Admin: 03/12/18 08:13 Dose: 1,000 units Cyanocobalamin (Vitamin B12 Tab*) 2,500 mcg PO DAILY [facility] Last Admin: 03/12/18 08:13 Dose: 2,500 mcg Docusate Sodium (Colace Cap*) 100 mg PO BID [facility] Last Admin: 03/12/18 08:13 Dose: 100 mg Gabapentin (Neurontin Cap(*)) 900 mg PO TID [facility] Last Admin: 03/12/18 14:00 Dose: 900 mg Heparin Sodium (Porcine) (Heparin Vial(*)) 5,000 units SUBCUT Q8HR [facility] Last Admin: 03/12/18 14:01 Dose: 5,000 units Iohexol (Omnipaque 300* (Contrast)) 80 ml IV ONCE ONE Stop: 03/12/18 16:49 Lovastatin (Mevacor (Nf)) 40 mg PO BEDTIME [facility] PRN Reason: Protocol Last Admin: 03/11/18 19:34 Dose: 40 mg Metoprolol Succinate (Toprol Xl Tab*) 25 mg PO DAILY [facility] Last Admin: 03/12/18 08:13 Dose: 25 mg Multi-Ingredient Liniment/Rub (Reynaldo Murry*) 1 applic TOPICAL TID PRN PRN Reason: PAIN - ARTHRITIS Multivitamins/Minerals (Theragran/Minerals Tab*) 1 tab PO DAILY [facility] Last Admin: 03/12/18 08:13 Dose: 1 tab Ondansetron HCl (Zofran 40 Mg Vial*) 4 mg IV Q4H PRN PRN Reason: NAUSEA/VOMITING Oxycodone HCl (Roxycodone Tab*) 5 mg PO Q6HR PRN PRN Reason: PAIN Last Admin: 03/12/18 16:07 Dose: 5 mg Oxycodone/Acetaminophen (Percocet 5/325 Tab*) 1 tab PO Q6HR PRN PRN Reason: PAIN Last Admin: 03/12/18 16:08 Dose: 1 tab Prochlorperazine Edisylate (Compazine Inj*) 5 mg IV Q6H PRN PRN Reason: NAUSEA/VOMITING Last Admin: 03/11/18 15:36 Dose: 5 mg Tamsulosin HCl (Flomax Cap*) 0.4 mg PO DAILY [facility] Last Admin: 03/12/18 08:13 Dose: 0.4 mg Vital Signs - 8 hr 03/12/18 03/12/18 03/12/18 11:41 12:54 12:55 Temperature 37.2 C Pulse Rate 55 Respiratory 16 18 18 Rate Blood Pressure 139/42 (mmHg) O2 Sat by Pulse 99 Oximetry 03/12/18 03/12/18 03/12/18 14:00 15:51 16:07 Temperature 37.1 C Pulse Rate 66 Respiratory 18 16 18 Rate Blood Pressure 160/48 (mmHg) O2 Sat by Pulse 99 Oximetry Oxygen Devices in Use Now: None Appearance: alert, no distress Eyes: No Scleral Icterus Ears/Nose/Mouth/Throat: Clear Oropharnyx Neck: Trachea Midline Respiratory: Symmetrical Chest Expansion and Respiratory Effort, Clear to Auscultation Cardiovascular: NL Sounds; No Murmurs; No JVD, RRR Abdominal: NL Sounds; No Tenderness; No Distention, No Hepatosplenomegaly Extremities: - - trace edema bilat, skin lax, appears edema recently resolved, tender Neurological: Alert and Oriented x 3 Lines/Tubes/Other Access: Clean, Dry and Intact Peripheral IV Result Diagrams: 03/12/18 05:58 03/12/18 05:58 Additional Lab and Data: Laboratory Tests 03/12/18 03/12/18 05:58 05:58 RBC (Retic) 2.71 L Retic Count, Calc 1.4 Corrected Retic Count 0.8 Retic Shift Factor 2.0 Iron 94 TIBC 279 Unsat Iron Binding 185 Transferrin 199 L Ferritin 112.2 Vitamin B12 > 1450 H Assess/Plan/Problems-Billing Mr. Felix is a 77yo M with PMH of HLD, HTN, BPH, CAD s/p CABG, prior h/o alcohol abuse, possible polymyalgia rheumatica, who presented to ED with c/o weakness and fall vs syncope. - Patient Problems (1) Hyponatremia Current Visit: Yes Status: Acute Priority: High Code(s): E87.1 - HYPO- OSMOLALITY AND HYPONATREMIA SNOMED Code(s): 78203621 Comment: - Na level is improved with IVF, suggests dehydration played a role - Suspect pneumonia/lung mass contributes also - Monitor Na level tomorrow. (2) Anemia Current Visit: No Status: Acute Priority: Medium Code(s): D64.9 - ANEMIA, UNSPECIFIED SNOMED Code(s): 153854058 Comment: -normocytic anemia, not due to low B12 or iron -suspect possible malignancy, no CKD seen. -slowly trending down. No evidence of bleeding. (3) Lung mass Current Visit: Yes Status: Acute Priority: High Code(s): R91.8 - OTHER NONSPECIFIC ABNORMAL FINDING OF LUNG FIELD SNOMED Code(s): 804781941 Comment: - Will repeat CT today - May need broader coverage for post-obstructive pneumonia - May need lung biopsy (4) DVT prophylaxis Current Visit: Yes Status: Acute Priority: Low Code(s): EGM7174 - SNOMED Code(s): 522756063 Comment: - SQ heparin. Status and Disposition: inpatient
--- NOTE | 2018-03-12 18:42 | RAD ---
INDICATION: Further characterization of density seen on previous chest x-ray. COMPARISON: Chest x-ray March 09, 2018 TECHNIQUE: Axial source images of the chest were acquired after the injection of 80 mL Omnipaque 300 intravenous contrast from just above the lung apices to the base of the diaphragm. Coronal and sagittal reconstructed images were acquired. FINDINGS: At the right upper lobe there is a focus of groundglass opacification measuring 11 mm in greatest axial dimension (axial image 17). Depicted better on the sagittal plane images (image 27) there is additional groundglass density in the more dependent and posterior right upper lobe. There are trace bibasilar pleural effusions, slightly larger on the right than the left. There are surgical clips at the left of midline anterior mediastinum consistent with CABG surgery. The heart is normal in size. There is no evidence of pericardial effusion. There is coarse atherosclerotic calcification of the coronary arteries and at the arch of the aorta. There is no mediastinal, hilar, or axillary lymphadenopathy. Sternotomy wires are noted. Degenerative changes of the thoracic spine includes loss of intervertebral disc height and anterior marginal osteophyte formation. Limited views of the upper abdomen show no abnormalities. IMPRESSION: 1. There is been interval development of small bibasilar pleural effusions corresponding to images seen on the March 09, 2018 chest x-ray. 2. Focal groundglass densities in the right upper lobe have a broad differential including inflammatory disease, pneumonia, fluid overload or neoplasm. Follow-up CT imaging after a resolution of the patient's acute symptoms can be acquired to ascertain resolution. 3. Additional chronic, degenerative and iatrogenic findings described in the body the report.
[2018-03-12] MEDS: LOVASTATIN 10 MG PO SCH (20:36)
[2018-03-12] MEDS: Analgesic BALM* 114 GM TOPICAL PRN (20:39)
[2018-03-13] MEDS: oxyCODONE/Acetamin 5/325 MG* TAB PO PRN ×3 (00:16→17:48)
[2018-03-13] MEDS: Heparin VIAL(*) 5000 UNITS/ML VIAL (FIVE THOUSAND) SUBCUT SCH ×3 (05:40→20:27)
[2018-03-13 05:46] LABS: ABS Basophils 0.1 10^3/ul (0-0.2); ABS Eosinophils 0.8 10^3/ul (0-0.6); ABS Lymphocytes 1.6 10^3/ul (1.0-4.8); ABS Monocytes 1.1 10^3/ul (0-0.8); ABS Neutrophils 6.1 10^3/ul (1.5-7.7); ABS Nucleated RBC 0 10^3/ul; Eosinophil % 8.3 % (0-6); Hematocrit 27 % (42-52); Hemoglobin 9.4 g/dl (14.0-18.0); Lymphocyte % 16.8 % (25-47); Mean Corpuscular HGB Conc 35 g/dl (31-36); Mean Corpuscular Hemoglobin 32 pg (27-31); Mean Corpuscular Volume 93 fL (80-94); Mean Platelet Volume 7.3 um3 (7.4-10.4); Nucleated Red Blood Cells % 0; Platelet Count 232 10^3/ul (150-450); Red Blood Count 2.89 10^6/ul (4.0-5.4); Red Cell Distribution Width 14 % (10.5-15); White Blood Count 9.8 10^3/ul (3.5-10.8)
[2018-03-13] MEDS: Analgesic BALM* 114 GM TOPICAL PRN ×2 (05:52→14:42)
[2018-03-13 06:05] LABS: EGFR Non-African American 85.3 (>60)
[2018-03-13] MEDS: Cyanocobalamin TAB* 500 MCG PO SCH (08:06)
[2018-03-13] MEDS: Gabapentin CAP(*) 300 MG PO SCH ×3 (08:06→20:26)
[2018-03-13] MEDS: Tamsulosin CAP* 0.4 MG PO SCH (08:07)
[2018-03-13] MEDS: Aspirin TAB* 325 MG PO SCH (08:07)
[2018-03-13] MEDS: amLODIPine TAB* 5 MG PO SCH (08:07)
[2018-03-13] MEDS: Cholecalciferol TAB* 1000 UNITS PO SCH (08:07)
[2018-03-13] MEDS: Docusate CAP* 100 MG PO SCH ×2 (08:07→20:26)
[2018-03-13] MEDS: oxyCODONE TAB* 5 MG TAB PO PRN ×2 (08:07→17:47)
[2018-03-13] MEDS: Metoprolol Succinate XL TAB* 25 MG PO SCH (08:07)
[2018-03-13] MEDS: Multivitamins/Minerals TAB PO SCH (08:07)
[2018-03-13] MEDS: Azithromycin TAB* 250 MG PO SCH (13:53)
--- NOTE | 2018-03-13 17:13 | PN ---
Subjective Date of Service: 03/13/18 Interval History: Patient has no new complaints. States he has not been out of bed today. 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 Denies SOB, pain. Family History: Unchanged from Admission Social History: Unchanged from Admission Past Medical History: Unchanged from Admission Objective Active Medications: Acetaminophen (Tylenol Tab*) 325 mg PO Q6HR PRN PRN Reason: PAIN Last Admin: 03/13/18 13:53 Dose: 325 mg Al Hydrox/Mg Hydrox/Simethicone (Maalox Plus*) 30 ml PO Q6H PRN PRN Reason: INDIGESTION Albuterol (Ventolin Hfa Inhaler*) 2 puff INH Q4H PRN PRN Reason: SOB/WHEEZING Amlodipine Besylate (Norvasc Tab*) 5 mg PO DAILY [facility] Last Admin: 03/13/18 08:07 Dose: 5 mg Aspirin (Aspirin Tab*) 325 mg PO DAILY [facility] Last Admin: 03/13/18 08:07 Dose: 325 mg Cholecalciferol (Vitamin D Tab*) 1,000 units PO DAILY [facility] Last Admin: 03/13/18 08:07 Dose: 1,000 units Cyanocobalamin (Vitamin B12 Tab*) 2,500 mcg PO DAILY [facility] Last Admin: 03/13/18 08:06 Dose: 2,500 mcg Docusate Sodium (Colace Cap*) 100 mg PO BID [facility] Last Admin: 03/13/18 08:07 Dose: 100 mg Gabapentin (Neurontin Cap(*)) 900 mg PO TID [facility] Heparin Sodium (Porcine) (Heparin Vial(*)) 5,000 units SUBCUT Q8HR [facility] Last Admin: 03/13/18 13:55 Dose: 5,000 units Lovastatin (Mevacor (Nf)) 40 mg PO BEDTIME [facility] PRN Reason: Protocol Last Admin: 03/12/18 20:36 Dose: 40 mg Metoprolol Succinate (Toprol Xl Tab*) 25 mg PO DAILY [facility] Last Admin: 03/13/18 08:07 Dose: 25 mg Multi-Ingredient Liniment/Rub (Tod Murry*) 1 applic TOPICAL TID PRN PRN Reason: PAIN - ARTHRITIS Last Admin: 03/13/18 14:42 Dose: 1 applic Multivitamins/Minerals (Theragran/Minerals Tab*) 1 tab PO DAILY [facility] Last Admin: 03/13/18 08:07 Dose: 1 tab Ondansetron HCl (Zofran 40 Mg Vial*) 4 mg IV Q4H PRN PRN Reason: NAUSEA/VOMITING Oxycodone HCl (Roxycodone Tab*) 5 mg PO Q6HR PRN PRN Reason: PAIN Last Admin: 03/13/18 08:07 Dose: 5 mg Oxycodone/Acetaminophen (Percocet 5/325 Tab*) 1 tab PO Q6HR PRN PRN Reason: PAIN Last Admin: 03/13/18 08:14 Dose: 1 tab Prochlorperazine Edisylate (Compazine Inj*) 5 mg IV Q6H PRN PRN Reason: NAUSEA/VOMITING Last Admin: 03/11/18 15:36 Dose: 5 mg Tamsulosin HCl (Flomax Cap*) 0.4 mg PO DAILY [facility] Last Admin: 03/13/18 08:07 Dose: 0.4 mg Vital Signs - 8 hr 03/13/18 03/13/18 03/13/18 11:01 11:42 13:54 Temperature 37.7 C Pulse Rate 58 Respiratory 16 18 16 Rate Blood Pressure 124/41 (mmHg) O2 Sat by Pulse 99 Oximetry 03/13/18 15:38 Temperature 36.9 C Pulse Rate 66 Respiratory 20 Rate Blood Pressure 159/48 (mmHg) O2 Sat by Pulse 100 Oximetry Oxygen Devices in Use Now: None Appearance: alert, no distress Neck: No Thyroid Enlargement, Masses Respiratory: Clear to Auscultation, Clear to Percussion Cardiovascular: NL Sounds; No Murmurs; No JVD, RRR Abdominal: NL Sounds; No Tenderness; No Distention Skin: No Rash or Ulcers Neurological: Alert and Oriented x 3 Lines/Tubes/Other Access: Clean, Dry and Intact Peripheral IV Result Diagrams: 03/13/18 05:36 03/13/18 05:36 Additional Lab and Data: Laboratory Tests 03/12/18 03/12/18 05:58 05:58 RBC (Retic) 2.71 L Retic Count, Calc 1.4 Corrected Retic Count 0.8 Retic Shift Factor 2.0 Iron 94 TIBC 279 Unsat Iron Binding 185 Transferrin 199 L Ferritin 112.2 Vitamin B12 > 1450 H Diagnostic Imaging: CT chest: RLL mass resolved since September, now has RUL ground glass infiltrate Assess/Plan/Problems-Billing Mr. Felix is a 77yo M with PMH of HLD, HTN, BPH, CAD s/p CABG, prior h/o alcohol abuse, possible polymyalgia rheumatica, who presented to ED with c/o weakness and fall vs syncope. - Patient Problems (1) Hyponatremia Current Visit: Yes Status: Acute Priority: High Code(s): E87.1 - HYPO- OSMOLALITY AND HYPONATREMIA SNOMED Code(s): 08021521 Comment: - Na level initially improved with IVF, suggests dehydration played a role, now sodium lower again, will restrict PO fluid - Pneumonia/lung mass ruled out on CT - Monitor Na level tomorrow. (2) Anemia Current Visit: No Status: Acute Priority: Medium Code(s): D64.9 - ANEMIA, UNSPECIFIED SNOMED Code(s): 344949326 Comment: -normocytic anemia, not due to low B12 or iron -suspect possible medication effect, bone marrow dysplasia, no CKD seen. -other investigations pending. Should consider hematology consult in AM. (3) Lung mass Current Visit: Yes Status: Acute Priority: High Code(s): R91.8 - OTHER NONSPECIFIC ABNORMAL FINDING OF LUNG FIELD SNOMED Code(s): 860996029 Comment: - Will need repeat CT in 6 months. - Will treat for pneumonia w/ ceftriaxone (4) DVT prophylaxis Current Visit: Yes Status: Acute Priority: Low Code(s): RCK2553 - SNOMED Code(s): 753445514 Comment: - SQ heparin. (5) Syncope and collapse Current Visit: Yes Status: Acute Priority: Medium Code(s): R55 - SYNCOPE AND COLLAPSE SNOMED Code(s): 956786914 Comment: - patient mildly confused, weak - suspect polypharmacy, hyponatremia contribute - gabapentin decreased, will mobilize. Status and Disposition: inpatient
[2018-03-13] MEDS: cefTRIAXone(*) 1 GM in NS 0.9% 50 ML* 50 ML IVPB SCH (17:48)
[2018-03-13] MEDS: LOVASTATIN 10 MG PO SCH (20:26)
[2018-03-14] MEDS: Heparin VIAL(*) 5000 UNITS/ML VIAL (FIVE THOUSAND) SUBCUT SCH ×3 (05:28→20:00)
[2018-03-14] MEDS: oxyCODONE TAB* 5 MG TAB PO PRN ×2 (05:28→15:39)
[2018-03-14] MEDS: oxyCODONE/Acetamin 5/325 MG* TAB PO PRN ×2 (05:29→15:39)
[2018-03-14 07:09] LABS: ABS Basophils 0.1 10^3/ul (0-0.2); ABS Eosinophils 0.7 10^3/ul (0-0.6); ABS Lymphocytes 1.4 10^3/ul (1.0-4.8); ABS Nucleated RBC 0 10^3/ul; Eosinophil % 8.7 % (0-6); Hematocrit 26 % (42-52); Hemoglobin 9.1 g/dl (14.0-18.0); Mean Corpuscular HGB Conc 35 g/dl (31-36); Mean Corpuscular Hemoglobin 32 pg (27-31); Mean Corpuscular Volume 93 fL (80-94); Mean Platelet Volume 7.6 um3 (7.4-10.4); Nucleated Red Blood Cells % 0; Platelet Count 239 10^3/ul (150-450); Red Blood Count 2.85 10^6/ul (4.0-5.4); Red Cell Distribution Width 14 % (10.5-15); White Blood Count 8.2 10^3/ul (3.5-10.8)
[2018-03-14 07:25] LABS: EGFR Non-African American 86.5 (>60)
[2018-03-14] MEDS: Docusate CAP* 100 MG PO SCH ×2 (10:06→19:49)
[2018-03-14] MEDS: Aspirin TAB* 325 MG PO SCH (10:06)
[2018-03-14] MEDS: Cholecalciferol TAB* 1000 UNITS PO SCH (10:07)
[2018-03-14] MEDS: Metoprolol Succinate XL TAB* 25 MG PO SCH (10:08)
[2018-03-14] MEDS: Tamsulosin CAP* 0.4 MG PO SCH (10:08)
[2018-03-14] MEDS: Cyanocobalamin TAB* 500 MCG PO SCH (10:08)
[2018-03-14] MEDS: Gabapentin CAP(*) 300 MG PO SCH ×3 (10:08→19:48)
[2018-03-14] MEDS: Multivitamins/Minerals TAB PO SCH (10:08)
[2018-03-14] MEDS: amLODIPine TAB* 5 MG PO SCH (10:08)
[2018-03-14 13:19] LABS: Uric Acid 3.8 mg/dL (4.4-7.6)
--- NOTE | 2018-03-14 17:41 | PN ---
Subjective Date of Service: 03/14/18 Interval History: Na to 135. Very unhappy with any degree of fluid restriction. reports he had swollen legs prior to admission. Wanting to leave the hospital, ride can't come until the AM. Family History: Unchanged from Admission Social History: Unchanged from Admission Past Medical History: Unchanged from Admission Objective Active Medications: Acetaminophen (Tylenol Tab*) 325 mg PO Q6HR PRN PRN Reason: PAIN Last Admin: 03/13/18 13:53 Dose: 325 mg Al Hydrox/Mg Hydrox/Simethicone (Maalox Plus*) 30 ml PO Q6H PRN PRN Reason: INDIGESTION Albuterol (Ventolin Hfa Inhaler*) 2 puff INH Q4H PRN PRN Reason: SOB/WHEEZING Amlodipine Besylate (Norvasc Tab*) 5 mg PO DAILY [facility] Last Admin: 03/14/18 10:08 Dose: 5 mg Aspirin (Aspirin Tab*) 325 mg PO DAILY [facility] Last Admin: 03/14/18 10:06 Dose: 325 mg Cholecalciferol (Vitamin D Tab*) 1,000 units PO DAILY [facility] Last Admin: 03/14/18 10:07 Dose: 1,000 units Cyanocobalamin (Vitamin B12 Tab*) 2,500 mcg PO DAILY [facility] Last Admin: 03/14/18 10:08 Dose: 2,500 mcg Docusate Sodium (Colace Cap*) 100 mg PO BID [facility] Last Admin: 03/14/18 10:06 Dose: 100 mg Gabapentin (Neurontin Cap(*)) 600 mg PO TID [facility] Last Admin: 03/14/18 15:38 Dose: 600 mg Heparin Sodium (Porcine) (Heparin Vial(*)) 5,000 units SUBCUT Q8HR [facility] Last Admin: 03/14/18 15:44 Dose: 5,000 units Ceftriaxone Sodium 1 gm/ (Sodium Chloride) 50 mls @ 200 mls/hr IVPB Q24H [facility] Last Admin: 03/13/18 17:48 Dose: 200 mls/hr Lovastatin (Mevacor (Nf)) 40 mg PO BEDTIME ISAIAS PRN Reason: Protocol Last Admin: 03/13/18 20:26 Dose: 40 mg Metoprolol Succinate (Toprol Xl Tab*) 25 mg PO DAILY [facility] Last Admin: 03/14/18 10:08 Dose: 25 mg Multi-Ingredient Liniment/Rub (Tod Murry*) 1 applic TOPICAL TID PRN PRN Reason: PAIN - ARTHRITIS Last Admin: 03/13/18 14:42 Dose: 1 applic Multivitamins/Minerals (Theragran/Minerals Tab*) 1 tab PO DAILY [facility] Last Admin: 03/14/18 10:08 Dose: 1 tab Ondansetron HCl (Zofran 40 Mg Vial*) 4 mg IV Q4H PRN PRN Reason: NAUSEA/VOMITING Oxycodone HCl (Roxycodone Tab*) 5 mg PO Q6HR PRN PRN Reason: PAIN Last Admin: 03/14/18 15:39 Dose: 5 mg Oxycodone/Acetaminophen (Percocet 5/325 Tab*) 1 tab PO Q6HR PRN PRN Reason: PAIN Last Admin: 03/14/18 15:39 Dose: 1 tab Prochlorperazine Edisylate (Compazine Inj*) 5 mg IV Q6H PRN PRN Reason: NAUSEA/VOMITING Last Admin: 03/11/18 15:36 Dose: 5 mg Tamsulosin HCl (Flomax Cap*) 0.4 mg PO DAILY [facility] Last Admin: 03/14/18 10:08 Dose: 0.4 mg Vital Signs - 8 hr 03/14/18 03/14/18 03/14/18 10:08 11:08 15:38 Temperature 98.2 F Pulse Rate 59 Respiratory 16 20 20 Rate Blood Pressure 132/45 (mmHg) O2 Sat by Pulse 99 Oximetry 03/14/18 03/14/18 15:39 15:52 Temperature 97.4 F Pulse Rate Respiratory 19 20 Rate Blood Pressure 169/59 (mmHg) O2 Sat by Pulse 100 Oximetry Oxygen Devices in Use Now: None Appearance: NAD Neck: NL Appearance and Movements; NL JVP, Trachea Midline Respiratory: Symmetrical Chest Expansion and Respiratory Effort, Clear to Auscultation Cardiovascular: NL Sounds; No Murmurs; No JVD, RRR Abdominal: NL Sounds; No Tenderness; No Distention Extremities: - - trace edema b/l ankles Neurological: Alert and Oriented x 3, NL Sensation Nutrition: Taking PO's Result Diagrams: 03/14/18 06:37 03/14/18 06:37 Additional Lab and Data: Laboratory Results - last 24 hr 03/12/18 03/14/18 03/14/18 05:58 06:37 06:37 WBC 8.2 RBC 2.85 L Hgb 9.1 L Hct 26 L MCV 93 MCH 32 H MCHC 35 RDW 14 Plt Count 239 MPV 7.6 Neut % (Auto) 61.0 Lymph % (Auto) 17.0 L [place] % (Auto) 11.9 H Eos % (Auto) 8.7 H Baso % (Auto) 1.4 Absolute Neuts (auto) 5.0 Absolute Lymphs (auto) 1.4 Absolute Monos (auto) 1.0 H Absolute Eos (auto) 0.7 H Absolute Basos (auto) 0.1 Absolute Nucleated RBC 0 Nucleated RBC % 0 ESR 47 H Haptoglobin 161 Sodium 135 L Potassium 4.0 Chloride 103 Carbon Dioxide 26 Anion Gap 6 BUN 11 Creatinine 0.86 Est GFR ( Amer) 111.2 Est GFR (Non-Af Amer) 86.5 BUN/Creatinine Ratio 12.8 Glucose 97 Uric Acid 3.8 L Calcium 8.6 Ammonia 03/14/18 06:37 WBC RBC Hgb Hct MCV MCH MCHC RDW Plt Count MPV Neut % (Auto) Lymph % (Auto) [place] % (Auto) Eos % (Auto) Baso % (Auto) Absolute Neuts (auto) Absolute Lymphs (auto) Absolute Monos (auto) Absolute Eos (auto) Absolute Basos (auto) Absolute Nucleated RBC Nucleated RBC % ESR Haptoglobin Sodium Potassium Chloride Carbon Dioxide Anion Gap BUN Creatinine Est GFR ( Amer) Est GFR (Non-Af Amer) BUN/Creatinine Ratio Glucose Uric Acid Calcium Ammonia 49 Microbiology and Other Data: Microbiology 03/09/18 06:22 Blood Venous Aerobic Blood Culture - Final No Growth Day 03/09/18 06:22 Blood Venous Anaerobic Blood Culture - Final No Growth Day 5 03/09/18 06:22 Blood Venous Aerobic Blood Culture - Final No Growth Day 03/09/18 06:22 Blood Venous Anaerobic Blood Culture - Final No Growth Day 03/10/18 05:00 Urine Legionella Urinary Antigen - Final Negative Legionella Antigen 03/09/18 06:18 Urine Legionella Urinary Antigen - Final Negative Legionella Antigen 03/09/18 06:18 Urine Streptococcus pneumoniae Ag Screen - Final Negative S. pneumo Antigen Diagnostic Imaging: CT chest: RLL mass resolved since September, now has RUL ground glass infiltrate Assess/Plan/Problems-Billing 77yo M with PMH of HLD, HTN, BPH, CAD s/p CABG, prior h/o alcohol abuse, possible polymyalgia rheumatica, who presented to ED with c/o weakness and fall vs syncope. Hyponatremic to 122. - Patient Problems (1) Hyponatremia Current Visit: Yes Status: Acute Priority: High Code(s): E87.1 - HYPO- OSMOLALITY AND HYPONATREMIA SNOMED Code(s): 04964997 Comment: - Na level initially improved with IVF, suggests dehydration played a role - 135. Uric acid low, continue 1.5L fluid restriction. - Pneumonia/lung mass ruled out on CT (2) Lung mass Current Visit: Yes Status: Acute Priority: High Code(s): R91.8 - OTHER NONSPECIFIC ABNORMAL FINDING OF LUNG FIELD SNOMED Code(s): 113020687 Comment: 1.1 cm patchy ggo in RUL. - Will need repeat CT in 6 months. - stop ceftriaxone (3) CAD (coronary artery disease) Current Visit: Yes Status: Acute Code(s): I25.10 - ATHSCL HEART DISEASE OF [place] CORONARY ARTERY W/O ANG PCTRS SNOMED Code(s): 23747038 Comment: - Stable. - Continue Aspirin, statin, and Metoprolol. (4) Hypertension Current Visit: Yes Status: Acute Code(s): I10 - ESSENTIAL (PRIMARY) HYPERTENSION SNOMED Code(s): 63836690 Comment: BP is moderately elevated. continue amlodipine 5mg daily and metoprolol 25mg daily. (5) Anemia Current Visit: No Status: Acute Priority: Medium Code(s): D64.9 - ANEMIA, UNSPECIFIED SNOMED Code(s): 542468260 Comment: -normocytic anemia, not due to low B12 or iron -suspect possible medication effect, bone marrow dysplasia, no CKD seen. -hapto wnl - hx of anemia in past. Status and Disposition: inpatient, discharge order placed, friend picking up in AM.
[2018-03-14] MEDS: cefTRIAXone(*) 1 GM in NS 0.9% 50 ML* 50 ML IVPB SCH (19:47)
[2018-03-14] MEDS: LOVASTATIN 10 MG PO SCH (19:49)
[2018-03-14] MEDS: Analgesic BALM* 114 GM TOPICAL PRN (19:55)
[2018-03-15] MEDS: Analgesic BALM* 114 GM TOPICAL PRN ×2 (03:02→05:22)
[2018-03-15] MEDS: Heparin VIAL(*) 5000 UNITS/ML VIAL (FIVE THOUSAND) SUBCUT SCH (05:13)
[2018-03-15] MEDS: oxyCODONE TAB* 5 MG TAB PO PRN (05:18)
[2018-03-15] MEDS: oxyCODONE/Acetamin 5/325 MG* TAB PO PRN (05:18)
[2018-03-15 07:43] VITALS: BP 149/43
[2018-03-15] MEDS: Cholecalciferol TAB* 1000 UNITS PO SCH (08:44)
[2018-03-15] MEDS: Tamsulosin CAP* 0.4 MG PO SCH (08:44)
[2018-03-15] MEDS: Aspirin TAB* 325 MG PO SCH (08:44)
[2018-03-15] MEDS: Docusate CAP* 100 MG PO SCH (08:44)
[2018-03-15] MEDS: Multivitamins/Minerals TAB PO SCH (08:44)
[2018-03-15] MEDS: amLODIPine TAB* 5 MG PO SCH (08:45)
[2018-03-15] MEDS: Gabapentin CAP(*) 300 MG PO SCH (08:45)
[2018-03-15] MEDS: Cyanocobalamin TAB* 500 MCG PO SCH (08:45)
[2018-03-15] MEDS: Metoprolol Succinate XL TAB* 25 MG PO SCH (08:45)
--- NOTE | 2018-03-16 07:04 | DS ---
DISCHARGE SUMMARY: DATE OF ADMISSION: 03/10/18 DATE OF DISCHARGE: 03/15/18 ADMITTING PROVIDER: Iza Patterson NP ATTENDING PHYSICIAN AND ON DISCHARGE: Isidoro Canseco MD PRIMARY CARE PROVIDER: Dr. Grimaldo. CHIEF COMPLAINT: Fall, generalized weakness, leg swelling. PRINCIPAL DIAGNOSES: 1. Fall in the setting of hyponatremia. 2. Acute kidney injury. 3. Syndrome of inappropriate antidiuretic hormone secretion. 4. 1.1-cm right upper lobe lung nodule. 5. Normocytic anemia. 6. Mild rhabdomyolysis. 7. Hypertensive urgency. HISTORY OF PRESENT ILLNESS AND HOSPITAL COURSE: Juan Luis Felix is a 77-year-old male with past medical history of hypertension, BPH, coronary artery disease, hyperlipidemia, chronic leg pains, history of alcohol abuse, who presented having woken up on the floor not remembering what had happened and difficulty getting up from the floor until he had to call his Life Alert button. He also had vomiting. He did not remember the events leading up to his finding himself on the floor. Please see H and P of Iza Patterson NP, for full details. He reported decreased fluid intake for about 1 week along with decreased appetite. He noted swelling in his legs. Upon initial evaluation, he was found to have sodium of 122, creatinine elevated from his baseline at 1.35, CK of 555, BNP of 116. He was suspected to be dehydrated and was given 100 cc an hour of normal saline with improvement of his sodium from 122 to 131 in the first 24 hours. His chest x-ray was read as low lung volumes with small bilateral patchy perihilar and basilar infiltrates and was started on ceftriaxone and azithromycin initially. His procalcitonin returned at 0.1. He was noted to be anemic to 9.4, normocytic. He has a history of anemia for the last several years. The patient had a normal TSH of 0.54. His sodium increased to 134 to 135, then down to 133, and there was suspicion that he may have a degree of SIADH, especially as he also had a CT of his chest, which showed a 1.1-cm right upper lobe patchy focal ground-glass density with a broad differential radiologically including inflammatory disease, pneumonia, fluid overload, or neoplasm with recommended CT imaging after resolution of acute symptoms recommended. The patient had a low serum uric acid level. His urine osmolality was 202. His urine random sodium was 35. He was put on initially 1.2 and then loosened to 1.5 L fluid restriction. His sodium improved again up to 135. The patient notably found to be philosophically concerning about the fluid restriction and will most likely not be following it as an outpatient despite repeated attempts at explanation for the reasoning behind it. He should get repeat BMP checked with Dr. Grimaldo on outpatient followup on . His additional anemia workup included iron level of 94, iron sat 34, ferritin of 112, normal haptoglobin of 161. He had a SPEP that was drawn and is still pending at the time of discharge. He works with physical therapy, was able to ambulate. He is being set up with [facility] and home physical therapy services. He was afebrile during the admission. His blood cultures were negative x5 days. He had negative strep and legionella urine antigens. His antibiotics were not continued. Initial blood pressures in the ED were 213/76 and was then up to 170s systolically and was started on amlodipine 5 mg with improvement in blood pressures. DISCHARGE MEDICATIONS: Include: 1. Albuterol 2 puffs inhaled q.4 hours. 2. Amlodipine 5 mg p.o. daily (new). 3. Aspirin 325 mg p.o. daily. 4. Cholecalciferol 1000 units p.o. daily. 5. Cyanocobalamin 2500 mcg p.o. daily. 6. Docusate 100 mg p.o. b.i.d. 7. Gabapentin 900 mg p.o. t.i.d. 8. Lovastatin 40 mg p.o. q.h.s. 9. Metoprolol 25 mg p.o. daily. 10. Nasonex 2 sprays both nares daily. 11. Theragran multivitamin 1 tab p.o. daily. 12. Naproxen 375 mg p.o. b.i.d. p.r.n. 13. Percocet 2 tabs p.o. q.6 hours p.r.n. 14. Tamsulosin 0.4 mg p.o. daily. ACTIVITY LEVEL: No restrictions. DIET: Heart-healthy with 1.5 L fluid restriction recommended until outpatient BMP can be rechecked. The patient will most likely not follow this recommendation per his admission. FOLLOWUP: Please follow up with Dr. Grimaldo on 03/18/18 at 11 a.m. [facility] services and outpatient physical therapy was also arranged for. TIME SPENT ON DISCHARGE: Thirty-five minutes. [id number]/[facility] #: [id number] LANCE
== END 2018-03-15 10:05 | disposition home or self-care (01) | DRG 644 ==
LOC: ED 05:21 → MED 10:38 → OBSVTOIN 03-10 10:29 → MEDTELE 03-10 16:43
PROVIDERS: ADMIT Internal Medicine; ATTEND Internal Medicine
DX: E22.2 Syndrome of inappropriate secretion of antidiuretic hormone (principal); M62.82 Rhabdomyolysis; N17.9 Acute kidney failure, unspecified; W19.XXXA Unspecified fall, initial encounter; R60.9 Edema, unspecified; I25.10 Atherosclerotic heart disease of native coronary artery without angina pectoris; Z66 Do not resuscitate; J44.9 Chronic obstructive pulmonary disease, unspecified; J30.2 Other seasonal allergic rhinitis; K21.9 Gastro-esophageal reflux disease without esophagitis; K59.00 Constipation, unspecified; N40.0 Benign prostatic hyperplasia without lower urinary tract symptoms; Z96.642 Presence of left artificial hip joint; M16.11 Unilateral primary osteoarthritis, right hip; M17.12 Unilateral primary osteoarthritis, left knee; Z96.651 Presence of right artificial knee joint; E78.5 Hyperlipidemia, unspecified; G89.29 Other chronic pain; F10.10 Alcohol abuse, uncomplicated; E86.0 Dehydration; I12.9 Hypertensive chronic kidney disease with stage 1 through stage 4 chronic kidney disease, or unspecified chronic kidney disease; M79.606 Pain in leg, unspecified; N18.9 Chronic kidney disease, unspecified; D63.1 Anemia in chronic kidney disease; R91.1 Solitary pulmonary nodule; I16.0 Hypertensive urgency; R11.10 Vomiting, unspecified; R91.8 Other nonspecific abnormal finding of lung field; R55 Syncope and collapse; Z95.1 Presence of aortocoronary bypass graft; Z87.891 Personal history of nicotine dependence; Z82.49 Family history of ischemic heart disease and other diseases of the circulatory system; Z88.5 Allergy status to narcotic agent; Z79.82 Long term (current) use of aspirin; Z80.8 Family history of malignant neoplasm of other organs or systems
CPT/HCPCS: 36415; 70450; 71045; 71260; 80048; 80053; 80307; 80320; 81003; 81015; 82140; 82550; 82553; 82607; 82668; 82728; 83010; 83540; 83550; 83605; 83615; 83735; 83880; 83930; 83935; 84145; 84155; 84165; 84300; 84443; 84484; 84550; 85025; 85027; 85045; 85610; 85652; 85730; 86850; 86900; 86901; 87040; 87899; 93005; 93306; 99284; A9270-GY; G0378; G0480; G8978-GP-CJ; G8979-GP-CH; G8979-GP-CJ; G8980-GP-CI; G8987-GO-CK; G8988-GO-CI; G8989-GO-CI; J0456; J0696; J0780; J1644; J3475; Q9967

== ENCOUNTER 2022-06-25 11:39 | Inpatient (IN) ==
[2022-06-25 13:07] LABS: ABS Lymphocytes 0.6 10^3/ul (1.0-4.8); ABS Monocytes 1.2 10^3/ul (0-0.8); ABS Neutrophils 11.2 10^3/ul (1.5-7.7); Eosinophil % 0.1 %; Hematocrit 35 % (42-52); Hemoglobin 11.7 g/dL (14.0-18.0); Lymphocyte % 4.3 %; Mean Corpuscular HGB Conc 34 g/dL (31-36); Mean Corpuscular Hemoglobin 33 pg (27-31); Mean Corpuscular Volume 99 fL (80-94); Mean Platelet Volume 8.2 fL (7.4-10.4); Platelet Count 188 10^3/uL (150-450); Red Blood Count 3.52 10^6 /uL (4.18-5.48); Red Cell Distribution Width 13 % (10-15)
[2022-06-25 13:11] LABS: Urine Appearance Clear; Urine Bilirubin Negative (Negative); Urine Blood 3+ (Large) (Negative); Urine Color Yellow; Urine Glucose Negative (Negative); Urine Ketones Negative (Negative); Urine Protein 2+ (100 mg/dL) (Negative); Urine Specific Gravity 1.015 (1.005-1.030); Urine pH 5.5 (5.0-9.0)
[2022-06-25 13:12] LABS: Urine Nitrite Negative (Negative); Urine Urobilinogen 0.2 (Negative) (Negative)
[2022-06-25 13:16] LABS: Activated Partial Thrombo Time 31.2 seconds (26.0-38.0); INR 1.23 (0.89-1.11)
[2022-06-25 13:19] LABS: Urine Bacteria Absent (Absent); Urine Red Blood Cell Trace(0-2/hpf) (Absent); Urine Squamous Epithelial Cell Present (Absent); Urine White Blood Cell Trace(0-5/hpf) (Absent)
[2022-06-25 13:34] LABS: Albumin 4.2 g/dL (3.2-5.2); Albumin/Globulin Ratio 1.7 (1-3); C Reactive Protein 183.95 mg/L (<8.01); Calcium 9.2 mg/dL (8.6-10.3); Globulin 2.5 g/dL (2-4); Potassium 3.9 mmol/L (3.5-5.0); Total Bilirubin 0.5 mg/dL (0.2-1.0); Total Protein 6.7 g/dL (6.4-8.9)
[2022-06-25 14:36] LABS: High Sensitivity Troponin 1 Hr 2083 pg/mL (<20)
[2022-06-25] MEDS ORDERED: Piperacillin/Tazobac ADVAN 3.375 GM in NS 0.9% 100 ml BAG 100 ML IV ONE (15:06)
[2022-06-25] MEDS ORDERED: Heparin DRIP 25,000 UNITS BAG 25,000 UNITS/500 ML BAG IV SCH (15:30)
[2022-06-25] MEDS ORDERED: Heparin 5000 UNITS/ML 1 mL VIAL IV SCH (16:00)
[2022-06-25] MEDS ORDERED: Ondansetron 4 mg VIAL 2 MG/ML 2 ml VIAL IV PRN (16:11)
[2022-06-25] MEDS ORDERED: Azithromycin 500 mg/250 ml NS 500 MG/250 ML BAG IVPB SCH (17:00)
[2022-06-25] MEDS ORDERED: Iodixanol (CONTRAST) 320 MG/ML 100 ML SDV IV ONE (17:45)
[2022-06-25] MEDS: cefTRIAXone 1 gm/50 mL D5W 1 GM/50 ML BAG IV SCH (18:28)
[2022-06-25 18:35] LABS: Corrected Retic Count 1.1 % (0.5-1.5); Hematocrit 32 % (42-52); Hematocrit for Retic CNT 32 % (42-52); Hemoglobin 10.5 g/dL (14.0-18.0); Immature Retic Fraction 0.47; Mean Corpuscular HGB Conc 33 g/dL (31-36); Mean Corpuscular Hemoglobin 33 pg (27-31); Mean Corpuscular Volume 99 fL (80-94); Mean Platelet Volume 8.8 fL (7.4-10.4); Platelet Count 182 10^3/uL (150-450); RBC Retic Count 3.23 10^6/uL (4.18-5.48); Red Blood Count 3.23 10^6 /uL (4.18-5.48); Red Cell Distribution Width 14 % (10-15); White Blood Count 14.6 10^3/uL (3.5-10.8)
[2022-06-25] MEDS ORDERED: Enoxaparin 40 MG/0.4 ML SYR SUBCUT SCH ×2 (19:00→21:00)
[2022-06-25 19:23] LABS: ABS Basophils 0.1 10^3/ul (0-0.2); ABS Eosinophils 0.2 10^3/ul (0-0.6); ABS Lymphocytes 0.9 10^3/ul (1.0-4.8); ABS Monocytes 1.9 10^3/ul (0-0.8); ABS Neutrophils 11.5 10^3/ul (1.5-7.7); Eosinophil % 1.2 %; Lymphocyte % 6.3 %
[2022-06-25 19:26] LABS: TSH Ultra Thyroid Stim Horm 0.65 mcIU/mL (0.34-5.60)
[2022-06-25 19:31] LABS: Ferritin 89.6 ng/mL (24-336)
[2022-06-25 19:37] LABS: Folate 13.34 ng/mL (5.90-24.80)
[2022-06-25 20:09] LABS: % Iron Saturation 7 % (15-55); Iron < 20 ug/dL (50-212); Total Iron Binding Capacity 284 mcg/dL (250-450); Transferrin 203 mg/dL (203-362); Unsaturated Iron Binding 264 ug/dL
[2022-06-25] MEDS: Azithromycin 500 mg/250 ml NS 500 MG/250 ML BAG IVPB SCH (22:32)
[2022-06-26] MEDS: Lactated Ringers 1000 ml BAG 1,000 ML IV SCH ×2 (00:14→11:44)
[2022-06-26 06:14] LABS: CO2 Carbon Dioxide 21 mmol/L (22-32); Calcium 8.5 mg/dL (8.6-10.3); Chloride 101 mmol/L (101-111); Magnesium 1.8 mg/dL (1.9-2.7); Sodium 137 mmol/L (135-145)
[2022-06-26 06:20] LABS: Blood Urea Nitrogen 14 mg/dL (6-24); Creatine Kinase 1344 U/L (10-223); Glucose 104 mg/dL (70-100); eGFR CKD-EPI 77.5 (>60)
[2022-06-26 06:23] LABS: Anion Gap 15 mmol/L (2-11)
[2022-06-26] MEDS ORDERED: Magnesium Sulfate IV 1GM/100ML 1 GM/100 ML BAG IV ONE (07:17)
[2022-06-26] MEDS: Multivitamins/Minerals TAB PO SCH (07:53)
[2022-06-26] MEDS: Cholecalciferol (VIT D3) 1,000 unit TAB PO SCH (07:55)
[2022-06-26] MEDS: NISOLDIPINE 17 MG PO SCH (07:58)
[2022-06-26] MEDS: cefTRIAXone 1 gm/50 mL D5W 1 GM/50 ML BAG IV SCH (16:47)
[2022-06-26] MEDS: Enoxaparin 80 MG/0.8 ML SYR SUBCUT SCH (16:47)
[2022-06-26] MEDS ORDERED: PAIN RELIEVING RUB (MENTHOL/SALICYLATE) 1 APPLIC TUBE TOPICAL PRN (17:30)
[2022-06-26] MEDS: Azithromycin 500 mg/250 ml NS 500 MG/250 ML BAG IVPB SCH (20:49)
[2022-06-27] MEDS: Enoxaparin 80 MG/0.8 ML SYR SUBCUT SCH ×2 (05:37→17:15)
[2022-06-27 07:08] LABS: Hematocrit 29 % (42-52); Hemoglobin 9.8 g/dL (14.0-18.0); Mean Corpuscular HGB Conc 34 g/dL (31-36); Mean Corpuscular Hemoglobin 33 pg (27-31); Mean Corpuscular Volume 98 fL (80-94); Mean Platelet Volume 8.9 fL (7.4-10.4); Platelet Count 164 10^3/uL (150-450); Red Blood Count 2.95 10^6 /uL (4.18-5.48); Red Cell Distribution Width 13 % (10-15); White Blood Count 14.4 10^3/uL (3.5-10.8)
[2022-06-27 07:15] LABS: Potassium 3.5 mmol/L (3.5-5.0); eGFR CKD-EPI 82.5 (>60)
[2022-06-27 07:32] LABS: ABS Basophils 0.1 10^3/ul (0-0.2); ABS Eosinophils 0.3 10^3/ul (0-0.6); ABS Lymphocytes 0.8 10^3/ul (1.0-4.8); ABS Monocytes 1.6 10^3/ul (0-0.8); ABS Neutrophils 11.7 10^3/ul (1.5-7.7); Eosinophil % 1.9 %; Lymphocyte % 5.2 %
[2022-06-27] MEDS: Cholecalciferol (VIT D3) 1,000 unit TAB PO SCH (08:21)
[2022-06-27] MEDS: NISOLDIPINE 17 MG PO SCH (08:22)
[2022-06-27] MEDS: Multivitamins/Minerals TAB PO SCH (08:22)
[2022-06-27] MEDS: cefTRIAXone 1 gm/50 mL D5W 1 GM/50 ML BAG IV SCH (17:15)
[2022-06-27] MEDS: Azithromycin 500 mg/250 ml NS 500 MG/250 ML BAG IVPB SCH (20:34)
[2022-06-27] MEDS: Polyethylene Glycol 3350 17 GM PACKET PO PRN (20:50)
[2022-06-28] MEDS: Enoxaparin 80 MG/0.8 ML SYR SUBCUT SCH ×2 (06:07→16:36)
[2022-06-28 06:47] LABS: ABS Basophils 0.1 10^3/ul (0-0.2); ABS Eosinophils 0.8 10^3/ul (0-0.6); ABS Lymphocytes 1.1 10^3/ul (1.0-4.8); ABS Monocytes 1.5 10^3/ul (0-0.8); ABS Neutrophils 10.5 10^3/ul (1.5-7.7); Eosinophil % 5.8 %; Hematocrit 30 % (42-52); Hemoglobin 10.3 g/dL (14.0-18.0); Lymphocyte % 7.8 %; Mean Corpuscular HGB Conc 35 g/dL (31-36); Mean Corpuscular Hemoglobin 34 pg (27-31); Mean Corpuscular Volume 99 fL (80-94); Mean Platelet Volume 9.1 fL (7.4-10.4); Platelet Count 173 10^3/uL (150-450); Red Blood Count 3.03 10^6 /uL (4.18-5.48); Red Cell Distribution Width 13 % (10-15)
[2022-06-28 07:06] LABS: Potassium 3.4 mmol/L (3.5-5.0); eGFR CKD-EPI 81.4 (>60)
[2022-06-28] MEDS ORDERED: Potassium Chlor 20 meq TAB.ER PO ONE (07:11)
[2022-06-28 07:31] LABS: Magnesium 1.8 mg/dL (1.9-2.7)
[2022-06-28] MEDS ORDERED: Magnesium Sulfate IV 1GM/100ML 1 GM/100 ML BAG IV ONE (08:40)
[2022-06-28] MEDS: Cholecalciferol (VIT D3) 1,000 unit TAB PO SCH (09:01)
[2022-06-28] MEDS: Multivitamins/Minerals TAB PO SCH (09:02)
[2022-06-28] MEDS: NISOLDIPINE 17 MG PO SCH (09:45)
[2022-06-28] MEDS: cefTRIAXone 1 gm/50 mL D5W 1 GM/50 ML BAG IV SCH (16:37)
[2022-06-28] MEDS: Azithromycin 500 mg/250 ml NS 500 MG/250 ML BAG IVPB SCH (21:05)
[2022-06-29] MEDS: Enoxaparin 80 MG/0.8 ML SYR SUBCUT SCH ×2 (05:40→16:01)
[2022-06-29 05:51] LABS: Hematocrit 29 % (42-52); Hemoglobin 9.6 g/dL (14.0-18.0); Mean Corpuscular HGB Conc 33 g/dL (31-36); Mean Corpuscular Hemoglobin 32 pg (27-31); Mean Corpuscular Volume 98 fL (80-94); Mean Platelet Volume 9.1 fL (7.4-10.4); Platelet Count 185 10^3/uL (150-450); Red Blood Count 2.99 10^6 /uL (4.18-5.48); Red Cell Distribution Width 14 % (10-15); White Blood Count 10.5 10^3/uL (3.5-10.8)
[2022-06-29 06:17] LABS: Calcium 8.1 mg/dL (8.6-10.3); Potassium 3.5 mmol/L (3.5-5.0)
[2022-06-29 06:19] LABS: ABS Basophils 0.1 10^3/ul (0-0.2); ABS Eosinophils 0.8 10^3/ul (0-0.6); ABS Lymphocytes 1.6 10^3/ul (1.0-4.8); ABS Monocytes 1.3 10^3/ul (0-0.8); ABS Neutrophils 6.7 10^3/ul (1.5-7.7); Eosinophil % 7.9 %; Lymphocyte % 15.6 %
[2022-06-29] MEDS: Cholecalciferol (VIT D3) 1,000 unit TAB PO SCH (09:25)
[2022-06-29] MEDS: Multivitamins/Minerals TAB PO SCH (09:25)
[2022-06-29] MEDS: NISOLDIPINE 17 MG PO SCH (09:26)
[2022-06-29] MEDS ORDERED: Isosorbide Mononit ER 30mg TAB PO ONE (11:24)
[2022-06-29] MEDS ORDERED: Furosemide 40 mg/4 ml IV VIAL IV ONE (11:24)
[2022-06-29] MEDS ORDERED: Nitro 2% OINT (Nitroglycerin) 1 INCH/PAK TOPICAL ONE (11:30)
[2022-06-29] MEDS: Albuterol HFA INHALER 8 gm MDI INH PRN (11:42)
[2022-06-29] MEDS: cefTRIAXone 1 gm/50 mL D5W 1 GM/50 ML BAG IV SCH (16:01)
[2022-06-29] MEDS: Azithromycin 500 mg/250 ml NS 500 MG/250 ML BAG IVPB SCH (20:57)
[2022-06-30] MEDS: Enoxaparin 80 MG/0.8 ML SYR SUBCUT SCH (04:37)
[2022-06-30] MEDS: Albuterol HFA INHALER 8 gm MDI INH PRN ×2 (06:01→12:30)
[2022-06-30 06:48] LABS: Calcium 8.6 mg/dL (8.6-10.3); Magnesium 1.9 mg/dL (1.9-2.7); Potassium 3.6 mmol/L (3.5-5.0); eGFR CKD-EPI 86.1 (>60)
[2022-06-30 06:52] LABS: ABS Basophils 0.1 10^3/ul (0-0.2); ABS Eosinophils 0.6 10^3/ul (0-0.6); ABS Lymphocytes 1.9 10^3/ul (1.0-4.8); ABS Monocytes 1.3 10^3/ul (0-0.8); ABS Neutrophils 6.4 10^3/ul (1.5-7.7); Eosinophil % 5.8 %; Lymphocyte % 18.3 %; Nucleated Red Blood Cells % 0.1
[2022-06-30] MEDS: Cholecalciferol (VIT D3) 1,000 unit TAB PO SCH (07:20)
[2022-06-30] MEDS: Multivitamins/Minerals TAB PO SCH (07:21)
[2022-06-30 07:43] LABS: Hematocrit 33 % (42-52); Hemoglobin 10.7 g/dL (14.0-18.0); Mean Corpuscular HGB Conc 33 g/dL (31-36); Mean Corpuscular Hemoglobin 32 pg (27-31); Mean Corpuscular Volume 98 fL (80-94); Mean Platelet Volume 9.3 fL (7.4-10.4); Platelet Count 226 10^3/uL (150-450); Red Blood Count 3.32 10^6 /uL (4.18-5.48); Red Cell Distribution Width 14 % (10-15); White Blood Count 10.4 10^3/uL (3.5-10.8)
[2022-06-30] MEDS ORDERED: Isosorbide Mononit ER 30mg TAB PO SCH (09:00)
[2022-06-30] MEDS ORDERED: Magnesium Hydroxide LIQ 30 ML UDC PO PRN (09:42)
[2022-06-30] MEDS ORDERED: Senna TAB 8.6 mg TAB PO PRN (09:43)
[2022-06-30] MEDS: Polyethylene Glycol 3350 17 GM PACKET PO PRN (10:02)
[2022-06-30 11:43] VITALS: BP 122/59
== END 2022-06-30 13:20 | DRG 280 ==
LOC: ED 11:39 → SUATTDRO 16:11 → EDHOLD 16:11 → MED 20:28
PROVIDERS: ADMIT Hospitalist; ATTEND Internal Medicine

== ENCOUNTER 2023-02-19 18:16 | Inpatient (IN) ==
[2023-02-19] MEDS ORDERED: Albuterol HFA INHALER 8 gm MDI INH PRN (18:26)
[2023-02-19] MEDS ORDERED: Polyethylene Glycol 3350 17 GM PACKET PO PRN (18:26)
[2023-02-20] MEDS: Cholecalciferol (VIT D3) 1,000 unit TAB PO SCH (08:23)
[2023-02-20] MEDS: Isosorbide Mononit ER 30mg TAB PO SCH (08:25)
[2023-02-20] MEDS: Multivitamins/Minerals TAB PO SCH (08:27)
[2023-02-21] MEDS: Multivitamins/Minerals TAB PO SCH (10:23)
[2023-02-21] MEDS ORDERED: Bismuth Subsalicylate (BTL) 525 MG/30 ML (BULK BTL) PO PRN (10:23)
[2023-02-21] MEDS: Isosorbide Mononit ER 30mg TAB PO SCH (10:30)
[2023-02-21] MEDS: Cholecalciferol (VIT D3) 1,000 unit TAB PO SCH (10:31)
[2023-02-21] MEDS: PAIN RELIEVING RUB (MENTHOL/SALICYLATE) 1 APPLIC TUBE TOPICAL PRN ×2 (10:42→18:15)
[2023-02-22] MEDS: Cholecalciferol (VIT D3) 1,000 unit TAB PO SCH (08:29)
[2023-02-22] MEDS: Isosorbide Mononit ER 30mg TAB PO SCH (08:30)
[2023-02-22] MEDS: Multivitamins/Minerals TAB PO SCH (08:30)
[2023-02-22] MEDS ORDERED: [UNRECOGNIZED DRUG - OTHER] TOPICAL PRN (09:00)
[2023-02-23] MEDS: Cholecalciferol (VIT D3) 1,000 unit TAB PO SCH (08:16)
[2023-02-23] MEDS: Multivitamins/Minerals TAB PO SCH (08:17)
[2023-02-23] MEDS: Isosorbide Mononit ER 30mg TAB PO SCH (08:17)
[2023-02-23 08:49] LABS: Rapid COVID-19 Molecular Undetected (Undetected)
[2023-02-23 10:37] VITALS: BP 142/67
== END 2023-02-23 13:20 | DRG 554 ==
LOC: SSU 18:16 → MED 02-22 13:32
PROVIDERS: ADMIT Student in an Organized Health Care Education/Training Program; ATTEND Internal Medicine

== ENCOUNTER 2023-10-09 17:49 | Observation (INO) ==
[2023-10-09 18:18] LABS: ABS Basophils 0.1 10^3/uL (0.0-0.1); ABS Eosinophils 0.3 10^3/uL (0.0-0.5); ABS Lymphocytes 1.2 10^3/uL (1.0-4.8); ABS Monocytes 0.9 10^3/uL (0.0-1.1); ABS Neutrophils 5.4 10^3/uL (1.5-7.6); Eosinophil % 3.8 %; Hematocrit 32.7 % (38-53); Hemoglobin 10.9 g/dL (13.2-16.3); Lymphocyte % 15.3 %; Mean Corpuscular Hemoglobin 33.6 pg (27-33); Mean Corpuscular Hgb Conc 33.4 g/dL (31-36); Mean Corpuscular Volume 100.6 fL (80-97); Mean Platelet Volume 8.8 fL (7.5-11.2); Nucleated Red Blood Cells % 0.1 %/100WBC (0.0-0.8); Platelet Count 199 10^3/uL (150-450); Red Blood Count 3.25 10^6/uL (4.06-5.63); Red Cell Distribution Width 14.9 % (12-17); White Blood Count 7.9 10^3/uL (3.6-10.2)
[2023-10-09 18:25] LABS: PCO2 Arterial 41 mmHg (35-45); PO2 Arterial 72 mmHg (80-100)
[2023-10-09 18:37] LABS: Albumin 3.8 g/dL (3.2-5.2); Albumin/Globulin Ratio 1.7 (1-3); Creatinine, Serum 1.65 mg/dL (0.67-1.17); Globulin 2.2 g/dL (2-4); Potassium 3.7 mmol/L (3.5-5.0); Total Bilirubin 0.2 mg/dL (0.2-1.0); eGFR CKD-EPI 41.2 (>60)
[2023-10-09 19:48] LABS: High Sensitivity Troponin 1 Hr 8 pg/mL (<20)
[2023-10-09] MEDS ORDERED: Ondansetron 4 mg VIAL 2 MG/ML 2 ml VIAL IV PRN (23:34)
[2023-10-10] MEDS ORDERED: Lactated Ringers 1000 ml BAG 1,000 ML IV SCH (02:18)
[2023-10-10] MEDS ORDERED: hydrALAZINE 20 mg/ml 1 ML Vial IV IV SLOW PU ONE (02:45)
[2023-10-10 02:47] LABS: C Reactive Protein 16.1 mg/L (<8.01)
[2023-10-10] MEDS ORDERED: hydrALAZINE 20 mg/ml 1 ML Vial IV ONE (02:48)
[2023-10-10 03:31] LABS: Urine Appearance Clear; Urine Bilirubin Negative (Negative); Urine Blood Negative (Negative); Urine Color Yellow; Urine Glucose Negative (Negative); Urine Ketones Negative (Negative); Urine Nitrite Negative (Negative); Urine Protein 1+(30 mg/dL) (Negative); Urine Urobilinogen Negative (Negative)
[2023-10-10] MEDS ORDERED: Polyethylene Glycol 3350 17 GM PACKET PO PRN (03:44)
[2023-10-10] MEDS ORDERED: Naloxone Nasal Spray 4 MG/0.1 ML NASAL.SPR INTRANASAL PRN (03:44)
[2023-10-10] MEDS ORDERED: Albuterol HFA INHALER 8 gm MDI INH PRN (03:44)
[2023-10-10 03:53] LABS: Urine Bacteria Absent (Absent); Urine Red Blood Cell Trace(0-2/hpf) (Absent); Urine White Blood Cell Trace(0-5/hpf) (Absent)
[2023-10-10 06:00] LABS: ABS Basophils 0.1 10^3/uL (0.0-0.1); ABS Eosinophils 0.4 10^3/uL (0.0-0.5); ABS Lymphocytes 1.7 10^3/uL (1.0-4.8); ABS Monocytes 0.8 10^3/uL (0.0-1.1); ABS Neutrophils 4.1 10^3/uL (1.5-7.6); Eosinophil % 5.5 %; Hematocrit 33.8 % (38-53); Lymphocyte % 24.1 %; Mean Corpuscular Hgb Conc 32.6 g/dL (31-36); Mean Corpuscular Volume 101.3 fL (80-97); Mean Platelet Volume 8.8 fL (7.5-11.2); Nucleated Red Blood Cells % 0.1 %/100WBC (0.0-0.8); Platelet Count 202 10^3/uL (150-450); Red Blood Count 3.34 10^6/uL (4.06-5.63); Red Cell Distribution Width 14.9 % (12-17); White Blood Count 7.1 10^3/uL (3.6-10.2)
[2023-10-10 06:04] LABS: Activated Partial Thrombo Time 28.6 seconds (26.0-38.0); INR 1.11 (0.83-1.13)
[2023-10-10 06:11] LABS: Calcium 8.4 mg/dL (8.6-10.3); Creatinine, Serum 1.12 mg/dL (0.67-1.17); Potassium 3.7 mmol/L (3.5-5.0); eGFR CKD-EPI 65.6 (>60)
[2023-10-10 06:27] LABS: TSH Ultra Thyroid Stim Horm 0.84 mcIU/mL (0.34-5.60)
[2023-10-10] MEDS: Heparin 5000 UNITS/ML 1 mL VIAL SUBCUT SCH ×2 (06:34→13:54)
[2023-10-10] MEDS ORDERED: Isosorbide Mononit ER 30mg TAB PO SCH (09:00)
[2023-10-10] MEDS ORDERED: NISOLDIPINE 17 MG PO SCH (09:00)
[2023-10-10] MEDS ORDERED: CYANOCOBALAMIN 100 MCG PO SCH (09:00)
[2023-10-10] MEDS ORDERED: Influenza vaccine *QUAD* *2023-24* 0.5 ML SYRINGE IM ONE (09:00)
[2023-10-10 14:45] VITALS: BP 143/69
[2023-10-13 16:29] LABS: Urine Alcohol Negative mg/dL (Cutoff: 10); Urine Barbiturates Negative; Urine Benzodiazepines Negative; Urine Cocaine Negative; Urine Methadone Negative (Negative); Urine Opiates Negative (Negative); Urine Phencyclidine Negative ng/mL (Cutoff: 25); Urine Tetrahydrocannabinol Negative ng/mL (Cutoff: 50)
== END 2023-10-10 15:50 | disposition home or self-care (01) ==
LOC: EDHOLD 17:49 → ED 17:49 → SUATTDRO 23:27 → SSU 10-10 01:22
PROVIDERS: ADMIT Hospitalist; ATTEND Student in an Organized Health Care Education/Training Program